=== PATIENT | female | born 1960 | race Caucasian/White ===

== ENCOUNTER 2017-10-30 12:15 | Observation (INO) ==
[2017-10-30] MEDS ORDERED: LORazepam 2 MG/ML VIAL IV ONE ×2 (12:31→15:34)
[2017-10-30] MEDS ORDERED: LACTATED RINGERS 1,000 ML IV ONE (12:39)
[2017-10-30] MEDS ORDERED: THIAMINE 100 MG in 0.9 % SODIUM CHLORIDE 50 ML IV ONE (12:46)
--- NOTE | 2017-10-30 12:46 | Emergency Department Note ---
General Adult HPI - General Chief complaint: Anxiety Stated complaint: Anxiety Time Seen by Provider: 10/30/17 12:31 Source: patient, EMS Mode of arrival: EMS Limitations: no limitations - History of Present Illness HPI Narrative: This patient is an alcoholic who was diagnosed yesterday with a broken ankle and has not been able to drink any alcohol since and now is in the 80s with a lot of shakiness she has had DTs before. We will start some fluid and Ativan. - Related Data Home Medications Medication Instructions Recorded Confirmed Propranolol [Inderal] 1 mg PO BID 06/07/17 10/29/17 buPROPion HCL [Bupropion Xl] 150 mg PO DAILY 10/29/17 10/29/17 Previous Rx's Medication Instructions Recorded levothyroxine 75 mcg capsule 75 mcg PO QDAY #90 cap 08/14/16 lorazepam 1 mg tablet 1 mg PO DAILYP PRN #30 tab 11/16/16 metoprolol succinate ER 25 mg 25 mg PO DAILY #90 tab 01/11/17 tablet,extended release 24 hr pregabalin 200 mg capsule 200 mg PO BID #60 cap 01/24/17 HYDROcodone/APAP 5/325MG [[place] 1 tab PO Q4HP PRN #30 tab 06/08/17 5-325Mg] HYDROcodone/APAP 5/325MG [[place] 1 tab PO Q6HP PRN #20 tab 10/29/17 5-325Mg] LORazepam [Ativan] 1 mg PO Q8HP #10 tab 10/30/17 Allergies Allergy/AdvReac Type Severity Reaction Status Date / Time No Known Drug Allergies Allergy Verified 06/07/17 15:08 Review of Systems All systems ED: reviewed and negative except as stated. Past Medical History - Past Medical History [facility] Narrative: Medical History (Last Reviewed 01/24/17 @ 10:02 by Shlomo Ernst DO) Urosepsis (Acute) Bacteremia due to Escherichia coli (Acute) Medical history: Reports: other Psychiatric history: Reports: anxiety - Social History smoking status: Never smoker Alcohol use: Reports: Heavy, Recent Drug use: Reports: none Physical Exam Limitations: no limitations General appearance: anxious Head: atraumatic Eye: Present: normal appearance ENT: normal exam Neck: Present: normal inspection Chest: Present: normal inspection Respiratory: Present: normal lung sounds bilaterally Cardiovascular: Present: regular rate, normal rhythm, normal heart sounds Abdominal: Present: soft. Absent: distention, tenderness Neurological: Present: alert Psychiatric: Present: normal affect, normal mood Skin: Present: warm, dry, intact Course Vital Signs Pulse Rate 112 H 10/30/17 12:15 Blood Pressure 157/113 10/30/17 12:15 Pulse Oximetry (%) 100 10/30/17 12:15 Pulse Rate 115 H 10/30/17 13:31 Respiratory Rate 18 10/30/17 14:26 Blood Pressure 144/99 10/30/17 14:01 Pulse Oximetry (%) 100 10/30/17 13:31 Medical Decision Making - MDM Narrative Medical decision making narrative: This patient was given 1 mg of Ativan and calmed down and felt much better and felt like she could go home with some oral Ativan. - Lab Data Lab results reviewed: Yes I reviewed the patient's lab results. Result diagrams: 10/30/17 12:32 10/30/17 12:32 Lab Results 10/30/17 10/30/17 Range/Units 12:32 12:32 WBC 7.7 (4.5-11.0) K/mcL RBC 3.77 L (4.00-5.20) M/mcL Hgb 11.8 L (12.0-15.0) g/dL Hct 35.3 L (36.0-48.0) % MCV 93.6 (80.0-100.0) fL MCH 31.3 (26.0-34.0) pg MCHC 33.4 (31.0-36.0) g/dL RDW 13.8 (11.5-14.5) % Plt Count 177 (140-440) K/mcL MPV 8.7 (7.4-10.4) fL Gran % 82.5 H (38.0-78.0) % Lymph % (Auto) 12.2 L (15.5-49.0) % [place] % (Auto) 5.1 (1.0-12.0) % Eos % (Auto) 0 (0.0-7.0) % Baso % (Auto) 0.2 (0.0-2.0) % Gran # 6.4 (1.8-8.0) K/mcL Lymph # (Auto) 0.9 L (1.5-4.8) K/mcL [place] # (Auto) 0.4 (0.1-0.9) K/mcL Eos # (Auto) 0 (0.0-0.7) K/mcL Baso # (Auto) 0 (0.0-0.3) K/mcL Sodium 133 (133-145) mmol/L Potassium 4.0 (3.3-5.1) mmol/L Chloride 92 L (96-108) mmol/L Carbon Dioxide 18 L (22-30) mmol/L Anion Gap 23.0 H (8-16) BUN 6 (6-20) mg/dl Creatinine 0.6 (0.6-1.1) mg/dl GFR Calculation 103 Glucose 187 H (70-105) mg/dL Calcium 9.3 (8.6-10.4) mg/dl Total Bilirubin 1.0 (0.0-1.0) mg/dL AST 30 (0-37) U/l ALT < 5 (0-40) U/l Alkaline Phosphatase 85 (39-117) U/L Total Protein 7.7 (5.9-8.4) gm/dL Albumin 4.3 (3.2-5.2) gm/dL Globulin 3.4 (2.2-3.7) gm/dL Albumin/Globulin Ratio 1.3 (1.0-2.3) Disposition Pt seen by [facility]ER/PA only: No Clinical Impression: Alcohol withdrawal Disposition: Home, Self-Care Condition: Good Instructions: Alcohol Withdrawal (ED) Prescriptions: LORazepam [Ativan] 1 mg PO Q8HP #10 tab Referrals: Steffi Blair PA-C [Primary Care Provider] - Time of Disposition: 14:33
[2017-10-30] MEDS ORDERED: THIAMINE 100 MG/ML VIAL ONE (13:00)
[2017-10-30 13:10] LABS: Basophils # (Auto) 0 K/mcL (0.0-0.3); Basophils % (Auto) 0.2 % (0.0-2.0); Eosinophils # (Auto) 0 K/mcL (0.0-0.7); Eosinophils % (Auto) 0 % (0.0-7.0); Granulocytes % (Auto) 82.5 % (38.0-78.0); Lymphocytes # (Auto) 0.9 K/mcL (1.5-4.8); Lymphocytes % (Auto) 12.2 % (15.5-49.0); Mean Cell Volume 93.6 fL (80.0-100.0); Mean Corpuscular HGB Conc 33.4 g/dL (31.0-36.0); Mean Corpuscular Hemoglobin 31.3 pg (26.0-34.0); Monocytes # (Auto) 0.4 K/mcL (0.1-0.9); Monocytes % (Auto) 5.1 % (1.0-12.0); Platelet Count 177 K/mcL (140-440); RBC 3.77 M/mcL (4.00-5.20); Red Cell Distribution Width 13.8 % (11.5-14.5)
[2017-10-30 13:29] LABS: ALT/SGPT < 5 U/l (0-40); Albumin 4.3 gm/dL (3.2-5.2); Albumin/Globulin Ratio 1.3 (1.0-2.3); Alkaline Phosphatase 85 U/L (39-117); Blood Urea Nitrogen 6 mg/dl (6-20)
[2017-10-30] MEDS ORDERED: 0.9 % SODIUM CHLORIDE 1,000 ML IV ONE ×2 (15:34→17:10)
[2017-10-30] MEDS ORDERED: MAGNESIUM SULFATE 2 GM/50 ML BAG IV PRN (18:42)
[2017-10-30] MEDS ORDERED: POTASSIUM CHLORIDE 20 MEQ PACKET PO PRN (18:42)
[2017-10-30] MEDS ORDERED: ONDANSETRON 4 MG/2 ML VIAL IV PRN (18:42)
[2017-10-30] MEDS: LACTATED RINGERS 1,000 ML IV SCH (19:22)
[2017-10-30] MEDS ORDERED: traZODone HCL 100 MG TABLET PO PRN (19:40)
[2017-10-30] MEDS ORDERED: LORazepam 1 MG TABLET PO PRN (19:40)
--- NOTE | 2017-10-30 19:41 | Internal Med History&Physical ---
Medical - H&P: [facility] Patient information: Note initiated : 10/30/17 at 7:41 pm Service Date, if different from initiated Date: [] Patient: Reba Santiago a 56 y/o F admitted on 10/30/17 for Anxiety. Chief Complaint: [] Chief complaint: alcohol withdrawal History of present illness: Ms. Santiago is a 56 year old F with extensive history of alcoholic neuropathy and active alcoholism recently had a fall sustaining injury to left ankle causing February distal fibular fractures/talar fracture dislocation. Patient was evaluated in the ER and subsequently sent home with outpatient follow-up with orthopedics. However patient was unable to ambulate and could not have [place] alcohol at home and subsequently started experiencing withdrawal symptoms. She was subsequently referred to ER where initial workup was significant for alcohol withdrawal symptoms. Hospitalist service was consulted to facilitate admission for management of diabetes while orthopedics consult will be required for management of left ankle fracture. At the Time of evaluation patient is fairly anxious fidgety. She was able to answer simple questions. She denies fever but endorses to intermittent diarrhea. She denies weight loss bloody stool off chest pain or shortness of breath. She cannot recollect the events pestering fall. Review of systems 10 point review of systems was performed and is negative except as discussed above Medical - H&P: PMH Medical history: 1. History of alcohol dependence. 2. Diabetes mellitus type 2. 3. Hypothyroidism. 4. Neuropathy. 5. Recurrent falls. Social history: Daily smoker Daily alcohol use Receives Caregiver assistance Smoking status: Current every day smoker Drug use: none Alcohol use: heavy Medical - H&P: Meds Home Medications Medication Instructions Recorded Confirmed Type levothyroxine 75 mcg capsule 75 mcg PO QDAY #90 cap 08/14/16 10/30/17 Rx lorazepam 1 mg tablet 1 mg PO DAILYP PRN #30 tab 11/16/16 10/30/17 Rx buPROPion HCL [Bupropion Xl] 150 mg PO DAILY 10/29/17 10/30/17 History Carbidopa/Levodopa [Carbidopa-Levo 1 each PO TID 10/30/17 10/30/17 History 25-100 mg Odt] DULoxetine HCL [Cymbalta] 60 mg PO DAILY 10/30/17 10/30/17 History Estradiol [Estrace] 2 mg PO DAILY 10/30/17 10/30/17 History LORazepam [Ativan] 1 mg PO BIDP PRN 10/30/17 10/30/17 History Pregabalin [Lyrica] 150 mg PO TID 10/30/17 10/30/17 History traZODone HCL [Trazodone HCl] 100 - 300 mg PO HS PRN 10/30/17 10/30/17 History Allergies Allergy/AdvReac Type Severity Reaction Status Date / Time No Known Drug Allergies Allergy Verified 06/07/17 15:08 Medical - H&P: Exam - Constitutional Vitals: Pulse Resp BP Pulse Ox 118 H 27 H 143/114 90 10/30/17 17:31 10/30/17 18:03 10/30/17 17:31 10/30/17 17:31 Exam: Anxious pupils symmetric Oral cavity dry Head normocephalic Neck no lymphadenopathy S1 and S2 regular rhythm tachycardia Diminished breath sounds bases Abdomen soft Lower extremity left ankle immobilizer boot No lymphedema Skin no suspicious lesion Psych alert cooperative but anxious Neuro nonfocal Medical - H&P: Reslt - Labs CBC & Chem 7: 10/31/17 03:50 10/31/17 03:50 Labs: Short CBC 10/30/17 Range/Units 12:32 WBC 7.7 (4.5-11.0) K/mcL Hgb 11.8 L (12.0-15.0) g/dL Hct 35.3 L (36.0-48.0) % Plt Count 177 (140-440) K/mcL BMP 10/30/17 12:32 Sodium 133 Potassium 4.0 Chloride 92 L Carbon Dioxide 18 L BUN 6 Creatinine 0.6 Glucose 187 H Calcium 9.3 Liver Function 10/30/17 Range/Units 12:32 Total Bilirubin 1.0 (0.0-1.0) mg/dL AST 30 (0-37) U/l ALT < 5 (0-40) U/l Alkaline Phosphatase 85 (39-117) U/L Albumin 4.3 (3.2-5.2) gm/dL Medical - H&P: A/P (1) Alcohol withdrawal delirium Current visit: Yes Status: Acute * Acute alcohol withdrawal- start and denies being for psychomotor agitation/ oral alcohol * Left ankle fracture-consult orthopedics * History of Parkinson's continue levodopa carbidopa * Anxiety disorder continue Cymbalta/bupropion/lorazepam * Neuropathy continue Lyrica * Full code * Prophylaxis heparin Plan * Telemetry observation. * Monitor for DTs * Crystalloids thiamine and benzodiazepines to counter psychomotor agitation * Orthopedics consult * pre-existing medical condition management of home meds
[2017-10-30] MEDS ORDERED: CARBIDOPA/LEVODOPA 25/100 TABLET PO SCH (21:00)
[2017-10-30] MEDS ORDERED: SENNOSIDES/DOCUSATE SODIUM 1 TAB TABLET PO SCH (21:00)
[2017-10-30] MEDS: HEPARIN 5,000 UNIT/ML VIAL SQ SCH (21:45)
[2017-10-30] MEDS: chlordiazePOXIDE 25 MG CAPSULE PO PRN (21:46)
[2017-10-30] MEDS: LORazepam 1 MG TABLET PO PRN (21:46)
[2017-10-30] MEDS: ACETAMINOPHEN 325 MG TABLET PO PRN (21:46)
[2017-10-30] MEDS: PREGABALIN 150 MG CAPSULE PO SCH (21:46)
[2017-10-30] MEDS: CARBIDOPA/LEVODOPA 25/100 TABLET PO SCH (21:47)
[2017-10-30] MEDS: 0.9 % SODIUM CHLORIDE 10 ML SYRINGE IV SCH (21:47)
[2017-10-30] MEDS: DOCUSATE SODIUM 100 MG CAPSULE PO SCH (21:47)
[2017-10-31] MEDS: chlordiazePOXIDE 25 MG CAPSULE PO PRN ×2 (03:08→08:28)
[2017-10-31] MEDS: LORazepam 1 MG TABLET PO PRN ×2 (05:13→14:01)
[2017-10-31] MEDS: ACETAMINOPHEN 325 MG TABLET PO PRN (05:13)
[2017-10-31 06:22] LABS: Mean Cell Volume 93.1 fL (80.0-100.0); Mean Corpuscular HGB Conc 33.7 g/dL (31.0-36.0); Mean Corpuscular Hemoglobin 31.4 pg (26.0-34.0); Platelet Count 152 K/mcL (140-440); RBC 3.28 M/mcL (4.00-5.20); Red Cell Distribution Width 14.2 % (11.5-14.5)
[2017-10-31 06:44] LABS: ALT/SGPT < 5 U/l (0-40); Albumin 3.4 gm/dL (3.2-5.2); Albumin/Globulin Ratio 1.3 (1.0-2.3); Alkaline Phosphatase 65 U/L (39-117); Bilirubin,Direct < 0.2 mg/dL (0.0-0.3); Blood Urea Nitrogen 4 mg/dl (6-20); Gamma Glutamyl Transpeptidase 123 U/L (5-36)
[2017-10-31] MEDS: LACTATED RINGERS 1,000 ML IV SCH (06:49)
[2017-10-31] MEDS: 0.9 % SODIUM CHLORIDE 10 ML SYRINGE IV SCH (07:06)
[2017-10-31] MEDS ORDERED: LEVOTHYROXINE 75 MCG TABLET PO SCH (07:30)
[2017-10-31] MEDS: DOCUSATE SODIUM 100 MG CAPSULE PO SCH (08:26)
[2017-10-31] MEDS: HEPARIN 5,000 UNIT/ML VIAL SQ SCH (08:27)
[2017-10-31] MEDS: PREGABALIN 150 MG CAPSULE PO SCH (08:28)
[2017-10-31] MEDS: CARBIDOPA/LEVODOPA 25/100 TABLET PO SCH (08:28)
[2017-10-31] MEDS ORDERED: MULTIVIT,THER IRON,CA,FA & MIN 1 TABLET PO SCH (09:00)
[2017-10-31] MEDS ORDERED: buPROPion 150 MG TAB.XL.24H PO SCH (09:00)
[2017-10-31] MEDS ORDERED: ESTRADIOL 1 MG TABLET PO SCH (09:00)
[2017-10-31] MEDS ORDERED: DULoxetine 30 MG CAPSULE PO SCH (09:00)
[2017-10-31] MEDS ORDERED: THIAMINE 100 MG in 0.9 % SODIUM CHLORIDE 50 ML IV SCH (09:00)
[2017-10-31 11:33] LABS: Lymphocytes % 36 % (15-49); Monocytes % (Manual) 6 % (1-12); Platelet Estimate NORMAL (NORMAL); RBC Morphology NORMAL (NORMAL); Segmented Neutrophils % 58 % (38-78)
--- NOTE | 2017-10-31 14:52 | Consultation ---
DATE OF CONSULTATION: 10/31/2017 CHIEF COMPLAINT: Alcohol withdrawal. HISTORY OF PRESENT ILLNESS: The patient is a 56-year-old female who currently is in the intensive care unit but initially presented to the emergency department with an extensive history of alcohol abuse. She apparently did experience a fall and presented to the emergency department with alcohol withdrawal symptoms. She was admitted by the hospitalist for management of diabetes and management of the left ankle fracture after she sustained a fall. PAST MEDICAL HISTORY: Significant for history of alcohol dependence, type 2 diabetes, hypothyroidism, neuropathy and recurrent falls. SOCIAL HISTORY: She is a daily smoker and uses alcohol daily. Denies any recreational drug use. PHYSICAL EXAMINATION: GENERAL: The patient appears to be resting comfortably. EYES: Pupils are equal, round, reactive to light and accommodation. NECK: There is no lymphadenopathy noted. Neck is supple. CARDIOVASCULAR: The rate is slightly tachycardic but otherwise normal rhythm. There are no murmurs appreciated. RESPIRATORY: There are diffuse wheezes noted bilaterally and diminished breath sounds in bases. ABDOMEN: Soft, nontender to palpation and otherwise benign. MUSCULOSKELETAL: Inspection reveals mild diffuse swelling throughout the ankle without erythema or any skin lesions. There is an amputation noted of the first digit that is chronic. The left lower extremity is neurovascularly intact. She has near full passive and active range of motion of the ankle, and there is no tenderness to palpation over the foot or ankle. PSYCH: She is alert and oriented but is somewhat confused. NEUROLOGIC: Once again, she is alert and oriented x3. No sensory-motor deficits were appreciated. IMAGING: Radiographs and CT reveal a mildly displaced subacute distal fibula fracture with some callus formation and bony lesions of the talus and midfoot consistent with Charcot foot. There is also evidence of syndesmotic injury. There are no other acute abnormalities or fracture seen. ASSESSMENT: 1. Left Charcot foot/ankle. 2. Diabetes mellitus type 2. 3. Alcohol withdrawal with associated delirium tremens. PLAN: After reviewing the radiographs and CT of her left foot, she has a subacute distal fibular fracture and syndesmotic injury. She also has bony lesions of the talus and midfoot consistent with Charcot foot. We will have her remain in a walking boot and nonweightbearing on the left lower extremity with likely serial casting. She will follow up with Dr. Brock within one week for further management of Charcot foot. The patient agrees with this plan and her questions were addressed. [email or web address]:zia Job ID: [id number] Doc ID: [id number] Maryse Mahmood PA-C
--- NOTE | 2017-10-31 15:37 | Discharge Summary ---
Medical - DS: Prov Patient information: Note initiated : 10/31/17 at 3:33 pm Service Date, if different from initiated Date: [] Patient: Reba Santiago 56 y/o F admitted on 10/30/17 for Anxiety/Alcohol Withdrawal Delirium, Lt Ankle Fx. Chief Complaint: [] Date of admission: 10/30/17 18:32 Discharge date: 10/31/17 Primary care physician: Steffi Blair Consults: 10/30/17 16:10 Consult to Physician [CONS] Stat Comment: Consulting Provider: eRuben Molina Reason For Exam: Physician to Consult 10/31/17 10:40 Consult to Physician [CONS] Routine Comment: Consulting Provider: Magen Recinos Reason For Exam: Physician to Consult Medical - DS: Meds - Discharge Medications Active and Home Medications: Home Medications levothyroxine 75 mcg capsule 75 mcg PO QDAY #90 cap 08/14/16 [Rx Confirmed 10/30 Last Taken 03/04/17] lorazepam 1 mg tablet 1 mg PO DAILYP PRN #30 tab 11/16/16 [Rx Confirmed Last Taken 03/04/17] buPROPion HCL [Bupropion Xl] 150 mg PO DAILY 10/29/17 [History Confirmed Last Taken Unknown] Carbidopa/Levodopa [Carbidopa-Levo 25-100 mg Odt] 1 each PO TID 10/30/17 [ History Confirmed 10/30/17 Last Taken Unknown] DULoxetine HCL [Cymbalta] 60 mg PO DAILY 10/30/17 [History Confirmed 10/30/17 Last Taken Unknown] Estradiol [Estrace] 2 mg PO DAILY 10/30/17 [History Confirmed 10/30/17 Last Taken Unknown] LORazepam [Ativan] 1 mg PO BIDP PRN 10/30/17 [History Confirmed 10/30/17 Last Taken Unknown] Pregabalin [Lyrica] 150 mg PO TID 10/30/17 [History Confirmed 10/30/17 Last Taken Unknown] traZODone HCL [Trazodone HCl] 100 - 300 mg PO HS PRN 10/30/17 [History Confirmed 10/30/17 Last Taken Unknown] Medical - DS: Hosp Hospital course: Discharge diagnoses * Acute alcohol withdrawal- clinically improving. Continue oral alcohol. * Left ankle orthopedics consulted and recommended outpatient follow-up. Immobilizer boot and nonweightbearing. * History of Parkinson's disease continue levodopa Carbidopa * Anxiety disorder continue Cymbalta/bupropion/lorazepam * Neuropathy continue Lyrica [facility] hospital course - Ms. Santiago is a 56 year old F with extensive history of alcoholic neuropathy and active alcoholism recently had a fall sustaining injury to left ankle causing February distal fibular fractures/talar fracture dislocation. Patient was evaluated in the ER and subsequently sent home with outpatient follow-up with orthopedics. However patient was unable to ambulate and could not have [place] alcohol at home and subsequently started experiencing withdrawal symptoms. She was subsequently referred to ER where initial workup was significant for alcohol withdrawal symptoms. Hospitalist service was consulted to facilitate admission for management of diabetes while orthopedics consult will be required for management of left ankle fracture. At the Time of evaluation patient is fairly anxious fidgety. She was able to answer simple questions. She denies fever but endorses to intermittent diarrhea. She denies weight loss bloody stool off chest pain or shortness of breath. She cannot recollect the events pestering fall. 10/31-patient back at baseline. Evaluated by orthopedics. Recommends nonweightbearing and immobilizer boot . No further anxiety or clinical symptoms of withdrawal. Discharge home with instructions as below. Discharge diagnosis: . - Time Spent with Patient Total time spent providing and/or coordinating discharge services: Medical - DS: Exam - Constitutional Vitals: Vital Signs Temp Pulse Resp BP Pulse Ox 10/31/17 13:02 98.6 F 88 23 H 151/92 99 10/31/17 09:37 21 10/31/17 08:01 20 136/104 10/31/17 06:55 18 134/100 10/31/17 04:01 99.2 F H 16 148/105 98 10/31/17 02:01 19 136/89 10/31/17 00:01 107 H 23 H 141/95 96 10/30/17 22:44 98 H 20 95 10/30/17 22:01 109 H 15 150/96 93 10/30/17 21:01 109 H 24 H 144/96 96 10/30/17 20:01 101 H 26 H 153/100 96 10/30/17 19:16 98 H 18 146/110 98 10/30/17 19:01 105 H 18 151/99 94 10/30/17 18:46 106 H 18 144/88 98 10/30/17 18:45 100 H 15 150/108 96 10/30/17 18:30 99.0 F 153/111 10/30/17 18:03 27 H 10/30/17 17:31 118 H 19 143/114 90 10/30/17 17:02 16 179/134 10/30/17 16:31 104 H 17 142/128 97 10/30/17 16:01 99 H 19 147/102 95 10/30/17 15:35 103 H 13 160/108 91 Intake and Output 10/31/17 10/31/17 10/31/17 05:59 13:59 21:59 Intake Total 1009 / 1009 Output Total 1600 / 1600 1500 / 1500 Balance -1600 / -1600 1009 / 1009 -1500 / -1500 Intake: IV 859 / 859 Lactated Ringers 1,000 ml @ 75 859 / 859 mls/hr IV .[id number] [facility] Rx#: [id number] Oral 150 / 150 Output: Urine Catheter Amount 1600 / 1600 1500 / 1500 Other: Meal Lunch Percent of Meal Consumed 50% Feeding Ability Assist with [employer] Medical - DS: Data Labs on day of discharge: Labs from last 24 hours 10/31/17 10/31/17 03:50 03:50 WBC 6.1 RBC 3.28 L Hgb 10.3 L Hct 30.5 L MCV 93.1 MCH 31.4 MCHC 33.7 RDW 14.2 Plt Count 152 MPV 8.4 Total Counted 100 Seg Neutrophils % 58 Band Neutrophils % Not Reportable Lymphocytes % 36 Monocytes % (Manual) 6 Platelet Estimate Normal RBC Morphology Normal Sodium 137 Potassium 3.4 Chloride 101 Carbon Dioxide 24 Anion Gap 12.0 BUN 4 L Creatinine 0.5 L GFR Calculation 109 Glucose 74 Uric Acid 4.0 Calcium 8.4 L Phosphorus 2.0 L Magnesium 1.4 L Total Bilirubin 1.0 Direct Bilirubin < 0.2 GGT 123 H AST 22 ALT < 5 Alkaline Phosphatase 65 Lactate Dehydrogenase 206 Total Protein 6.1 Albumin 3.4 Globulin 2.7 Albumin/Globulin Ratio 1.3 Triglycerides 67 Preliminary micro results at discharge 10/30/17 14:50 Stool Culture - Preliminary Stool Medical - DS: A/P - Patient/Caregiver Discharge Instructions Activity: increase activity as tolerated, other (nonweightbearing continue immobilizer boot,) Diet: Regular Diet Additional Instructions: Discharge Instructions: Non weight bearing left ankle. Use your wheel chair to transport or transfer. To avoid constipation while taking any narcotic pain medication, take an over the counter stool softener/laxative. Call your physician for fevers above 100.5 or pain not controlled by medication. Your prescriptions are with your discharge information. Some medications were electronically transmitted to your pharmacy of choice. Refrain from alcohol - Problem Maintenance (1) Alcohol withdrawal delirium Status: Acute - Follow up Plan Follow up with: Alexei Brock MD [Physician] - 11/05/17 1:00 pm Jaclyn Soto [Nurse Practitioner] - 11/07/17 10:15 am Disposition: Home, Self-Care Prognosis: Good Rehab Potential: Fair I certify that the patient requires SNF services: No Overall status at discharge: patient is progressing back to baseline
== END 2017-10-31 17:00 | disposition home or self-care (01) ==
LOC: ED 12:15 → ICU 18:30 → INTOOBSV 18:32 → ICU 18:32
PROVIDERS: ADMIT Internal Medicine; ATTEND Internal Medicine

== ENCOUNTER 2018-06-05 10:48 | Inpatient (IN) ==
[2018-06-05] MEDS ORDERED: LORazepam 2 MG/ML VIAL IV ONE ×3 (10:59→14:42)
[2018-06-05] MEDS ORDERED: LACTATED RINGERS 1,000 ML IV ONE (11:01)
--- NOTE | 2018-06-05 11:50 | Emergency Department Note ---
Anxiety HPI - General Chief Complaint: Anxiety Stated Complaint: Alcohol withdrawal Time Seen by Provider: 06/05/18 11:06 Source: patient Mode of arrival: ambulatory Limitations: no limitations - History of Present Illness HPI Narrative: 57-year-old female in ED via ambulance. EMS stated patient has anxiety attacks often and has been withdrawn from alcohol, even though she continues to drink wine. EMS attempted to have her drink some wine the patient began to dry heave. She had not had any Ativan today which is her normal and so they advised her to take one of her by mouth medications. Patient still requested to come into the ER. Patient states she drank 1 glass of wine yesterday and has not had any today. Patient states she has anxiety often and takes Ativan 2-3 times as needed, which is daily 2-3 times. Patient states she had just given her cats to her caregiver to take care of right before the anxiety attack hit. She believes this is what set off her anxiety this time. MD complaint: anxiety Onset (ago): hour(s) (1) Symptoms: dyspnea, dry mouth Severity: moderate Quality: constant Place: home History of similar episodes: Yes Provoking factors: emotional stress Improves with: medication, rest Worsens with: thinking about event Associated symptoms: Reports: shortness of breath, confusion (does not answer questions approprietly all the time), nausea/vomiting (dry heaving). Denies: chest pain, palpitations, fever/chills, headaches, malaise - Related Data Home Medications: Home Medications Medication Instructions Recorded Confirmed buPROPion HCL [Bupropion Xl] 300 mg PO DAILY 10/29/17 06/05/18 Carbidopa/Levodopa [Carbidopa-Levo 1 each PO TID 10/30/17 06/05/18 25-100 mg Odt] DULoxetine HCL [Cymbalta] 90 mg PO DAILY 10/30/17 06/05/18 Estradiol [Estrace] 2 mg PO DAILY 10/30/17 06/05/18 LORazepam [Ativan] 1 mg PO BIDP PRN 10/30/17 06/05/18 Pregabalin [Lyrica] 150 mg PO TID 10/30/17 06/05/18 traZODone HCL [Trazodone HCl] 100 - 300 mg PO HS PRN 10/30/17 06/05/18 Hydrocodone/APAP 7.5/325Mg [[place] 1 tab PO TIDP PRN 06/05/18 06/05/18 7.5-325Mg] Pregabalin [Lyrica] 150 mg PO TID 06/05/18 06/05/18 Propranolol [Inderal] 10 mg PO TID 06/05/18 06/05/18 Previous Rx's Medication Instructions Recorded levothyroxine 75 mcg capsule 75 mcg PO QDAY #90 cap 08/14/16 Allergies/Adverse Reactions: Allergies Allergy/AdvReac Type Severity Reaction Status Date / Time No Known Drug Allergies Allergy Verified 06/03/18 12:17 Review of Systems All systems ED: reviewed and negative except as stated. Past Medical History - Past Medical History PMFSH Narrative: All Active Problems (Last Reviewed 01/24/17 @ 10:02 by Shlomo Ernst DO) Urosepsis (Acute) Bacteremia due to Escherichia coli (Acute) Anxiety (Acute) Ankle fracture, left (Acute) Alcohol withdrawal (Acute) Alcohol withdrawal delirium (Acute) Hypomagnesemia (Acute) Primary insomnia (Chronic) Hyperthyroidism (Acute) Peripheral neuropathy (Chronic) Generalized anxiety disorder (Chronic) History of diabetes mellitus (Chronic) Medical history: Reports: thyroid disease Psychiatric history: Reports: anxiety - Social History smoking status: Former smoker Alcohol use: Reports: Heavy, Recent Drug use: Reports: none Physical Exam Limitations: no limitations General appearance: alert (with eyes closed), in no apparent distress (is shaking and with rapid respirations but able to lay flat without SOB) Head: atraumatic, normocephalic, normal inspection Eye: Present: normal appearance, PERRL. Absent: conjunctival injection ENT: normal oropharynx, mucous membranes moist, TM's normal bilaterally, normal external ear exam Neck: Present: normal inspection. Absent: tenderness, lymphadenopathy Chest: Present: normal inspection, symmetric chest wall rise. Absent: tenderness Respiratory: Present: normal lung sounds bilaterally. Absent: respiratory distress, rales/crackles, wheezes Cardiovascular: Present: tachycardia. Absent: systolic murmur, diastolic murmur Abdominal: Present: soft, normal bowel sounds. Absent: distention, tenderness, guarding, rebound, rigidity Extremities: Present: normal inspection, full ROM. Absent: pedal edema Neurological: Present: alert, oriented X3, normal gait Psychiatric: Present: anxious Skin: Present: warm, dry, intact, normal color, other (Pt does have abrasion to right forearm erythema and scabbed in the center, no drainage non indurated). Absent: cyanosis, diaphoresis Course Vital Signs Temperature 96.6 F L 06/05/18 10:49 Pulse Rate 117 H 06/05/18 10:49 Respiratory Rate 36 H 06/05/18 10:49 Pulse Oximetry (%) 100 06/05/18 10:49 Temperature 98.0 F 06/06/18 06:01 Pulse Rate 70 06/06/18 06:01 Respiratory Rate 15 06/06/18 06:01 Blood Pressure 109/67 06/06/18 06:01 Pulse Oximetry (%) 93 06/06/18 06:01 Anxiety - MDM Narrative Medical decision making narrative: Provided patient 1 L normal saline and an additional liter banana bag, 1 mg IV Ativan. Chem 8 showed slightly low potassium at 3.2. Banana bag should improve this. Patient also with 67 glucose and provided her food box. Patient ate food and was feeling better. Patient's CIWA was 25. Banana bag takes 4 hours a nd needed to provide patient another milligram of Ativan IV, with no changes pt received a total of 3mg of Ativan IV and then switched to 5mg IM Haldol. This helped calm patient and she is able to communicate again but still has altered mental status, she can answer some questions appropriately such as where she had her she is but unable to tell us if she is taking her medications or if she's been attempting to quit drinking wine. Urine had large ketones no leukocytes or nitrates. Blood work showed 11.6 WBC, Chronic anemia, no alcohol in her blood. Consulted with [facility] who accepted patient into [facility]. - Medical Records Medical records reviewed: Yes I reviewed the patient's medical records. Reviewed last ED note 2 days ago patient was having alcohol withdrawals provided banana bag and Ativan. Patient did have hypomagnesemia. Patient had advised she was not going to quit drinking alcohol and not go to rehabilitation. Patient returned home after medication. - Lab Data Lab results reviewed: Yes I reviewed the patient's lab results. Result diagrams: 06/06/18 03:52 06/06/18 03:52 Lab Results 06/05/18 06/05/18 06/05/18 Range/Units 11:23 16:01 16:01 WBC 11.6 H (4.5-11.0) K/mcL RBC 2.96 L (4.00-5.20) M/mcL Hgb 9.6 L (12.0-15.0) g/dL Hct 29.5 L (36.0-48.0) % POC Hct 30.0 L (36.0-48.0) % MCV 99.6 (80.0-100.0) fL MCH 32.4 (26.0-34.0) pg MCHC 32.5 (31.0-36.0) g/dL RDW 14.6 H (11.5-14.5) % Plt Count 255 (140-440) K/mcL MPV 9.2 (7.4-10.4) fL Gran % 80.8 H (38.0-78.0) % Lymph % (Auto) 9.5 L (15.5-49.0) % [place] % (Auto) 9.5 (1.0-12.0) % Eos % (Auto) 0.1 (0.0-7.0) % Baso % (Auto) 0.1 (0.0-2.0) % Gran # 9.4 H (1.8-8.0) K/mcL Lymph # (Auto) 1.1 L (1.5-4.8) K/mcL [place] # (Auto) 1.1 H (0.1-0.9) K/mcL Eos # (Auto) 0 (0.0-0.7) K/mcL Baso # (Auto) 0 (0.0-0.3) K/mcL POC Sodium 133 (133-145) mmol/L Sodium 132 L (133-145) mmol/L POC Potassium 3.2 L (3.3-5.1) mmol/L Potassium 3.4 (3.3-5.1) mmol/L POC Chloride 98 (96-108) mmol/L Chloride 94 L (96-108) mmol/L Carbon Dioxide 13 L (22-30) mmol/L POC Total CO2 14 L (22-30) mmol/L Anion Gap 25.0 H (8-16) POC BUN 5 L (6-20) mg/dl BUN 7 (6-20) mg/dl Creatinine 0.7 (0.6-1.1) mg/dl POC Creatinine 0.6 (0.6-1.1) mg/dl GFR Calculation 97 Glucose 56 L (70-105) mg/dL POC Glucose 67 L (70-105) mg/dL Calcium 8.9 (8.6-10.4) mg/dl POC WB Ioniz Calcium 1.07 L (1.16-1.32) mmol/L Phosphorus (2.7-4.5) mg/dL Magnesium (1.6-2.5) mg/dL Total Bilirubin 1.0 (0.0-1.0) mg/dL AST 22 (0-37) U/l ALT 7 (0-40) U/l Alkaline Phosphatase 65 (39-117) U/L Total Protein 6.3 (5.9-8.4) gm/dL Albumin 3.7 (3.2-5.2) gm/dL Globulin 2.6 (2.2-3.7) gm/dL Albumin/Globulin Ratio 1.4 (1.0-2.3) Urine Color Urine Appearance Urine pH (5.0-9.0) Ur Specific [place] (1.000-1.035) Urine Protein (NEG) mg/dL Urine Glucose (UA) (NEG) mg/dL Urine Ketones (NEG) mg/dL Urine Occult Blood (<0.03) mg/dL Urine Nitrate (NEG) Urine Bilirubin (NEG) mg/dL Urine Urobilinogen (NEG) mg/dL Ur Leukocyte Esterase (NEG) /uL Urine RBC (0-1) /hpf Urine WBC (0-4) /hpf Ur Squamous Epith Cells (0-4) /hpf Ur Transition Epith Cell (0-2) /hpf Urine Bacteria (0) /hpf Hyaline Casts (0-2) /lpf Urine Mucus (0) /hpf Ur Culture Indicated? Urine Opiates Screen (NONDETECTED) Ur Opiates Confirm Ur Oxycodone Screen (NONDETECTED) Urine Methadone Screen (NONDETECTED) Ur Methadone Confirm Ur Barbiturates Screen (NONDETECTED) Ur Barbiturate Confirm Ur Phencyclidine Scrn (NONDETECTED) Urine PCP Confirm Ur Amphetamines Screen (NONDETECTED) U Amphetamines Confirm U Benzodiazepines Scrn (NONDETECTED) U Benzodiazepine Confm Urine Cocaine Screen (NONDETECTED) Urine Cocaine Confirm U Cannabinoids Confirm U Marijuana (THC) Screen (NONDETECTED) Ethyl Alcohol (<0.010) gm/dl 06/05/18 06/05/18 06/05/18 Range/Units 17:35 17:45 17:45 WBC (4.5-11.0) K/mcL RBC (4.00-5.20) M/mcL Hgb (12.0-15.0) g/dL Hct (36.0-48.0) % POC Hct (36.0-48.0) % MCV (80.0-100.0) fL MCH (26.0-34.0) pg MCHC (31.0-36.0) g/dL RDW (11.5-14.5) % Plt Count (140-440) K/mcL MPV (7.4-10.4) fL Gran % (38.0-78.0) % Lymph % (Auto) (15.5-49.0) % [place] % (Auto) (1.0-12.0) % Eos % (Auto) (0.0-7.0) % Baso % (Auto) (0.0-2.0) % Gran # (1.8-8.0) K/mcL Lymph # (Auto) (1.5-4.8) K/mcL [place] # (Auto) (0.1-0.9) K/mcL Eos # (Auto) (0.0-0.7) K/mcL Baso # (Auto) (0.0-0.3) K/mcL POC Sodium (133-145) mmol/L Sodium (133-145) mmol/L POC Potassium (3.3-5.1) mmol/L Potassium (3.3-5.1) mmol/L POC Chloride (96-108) mmol/L Chloride (96-108) mmol/L Carbon Dioxide (22-30) mmol/L POC Total CO2 (22-30) mmol/L Anion Gap (8-16) POC BUN (6-20) mg/dl BUN (6-20) mg/dl Creatinine (0.6-1.1) mg/dl POC Creatinine (0.6-1.1) mg/dl GFR Calculation Glucose (70-105) mg/dL POC Glucose (70-105) mg/dL Calcium (8.6-10.4) mg/dl POC WB Ioniz Calcium (1.16-1.32) mmol/L Phosphorus (2.7-4.5) mg/dL Magnesium (1.6-2.5) mg/dL Total Bilirubin (0.0-1.0) mg/dL AST (0-37) U/l ALT (0-40) U/l Alkaline Phosphatase (39-117) U/L Total Protein (5.9-8.4) gm/dL Albumin (3.2-5.2) gm/dL Globulin (2.2-3.7) gm/dL Albumin/Globulin Ratio (1.0-2.3) Urine Color Yellow Urine Appearance Hazy Urine pH 6.0 (5.0-9.0) Ur Specific [place] 1.014 (1.000-1.035) Urine Protein Neg (NEG) mg/dL Urine Glucose (UA) Negative (NEG) mg/dL Urine Ketones 80 A (NEG) mg/dL Urine Occult Blood Neg (<0.03) mg/dL Urine Nitrate Neg (NEG) Urine Bilirubin Neg (NEG) mg/dL Urine Urobilinogen 4.0 A (NEG) mg/dL Ur Leukocyte Esterase 75 A (NEG) /uL Urine RBC < 1 (0-1) /hpf Urine WBC 3 (0-4) /hpf Ur Squamous Epith Cells 5 H (0-4) /hpf Ur Transition Epith Cell < 1 (0-2) /hpf Urine Bacteria 0 (0) /hpf Hyaline Casts 3 H (0-2) /lpf Urine Mucus Few (0) /hpf Ur Culture Indicated? No Urine Opiates Screen Suspect positive A (NONDETECTED) Ur Opiates Confirm Not Reportable Ur Oxycodone Screen None detected (NONDETECTED) Urine Methadone Screen None detected (NONDETECTED) Ur Methadone Confirm Not Reportable Ur Barbiturates Screen None detected (NONDETECTED) Ur Barbiturate Confirm Not Reportable Ur Phencyclidine Scrn None detected (NONDETECTED) Urine PCP Confirm Not Reportable Ur Amphetamines Screen None detected (NONDETECTED) U Amphetamines Confirm Not Reportable U Benzodiazepines Scrn None detected (NONDETECTED) U Benzodiazepine Confm Not Reportable Urine Cocaine Screen None detected (NONDETECTED) Urine Cocaine Confirm Not Reportable U Cannabinoids Confirm Not Reportable U Marijuana (THC) Screen Suspect positive A (NONDETECTED) Ethyl Alcohol < 0.010 (<0.010) gm/dl 06/05/18 Range/Units 18:30 WBC (4.5-11.0) K/mcL RBC (4.00-5.20) M/mcL Hgb (12.0-15.0) g/dL Hct (36.0-48.0) % POC Hct (36.0-48.0) % MCV (80.0-100.0) fL MCH (26.0-34.0) pg MCHC (31.0-36.0) g/dL RDW (11.5-14.5) % Plt Count (140-440) K/mcL MPV (7.4-10.4) fL Gran % (38.0-78.0) % Lymph % (Auto) (15.5-49.0) % [place] % (Auto) (1.0-12.0) % Eos % (Auto) (0.0-7.0) % Baso % (Auto) (0.0-2.0) % Gran # (1.8-8.0) K/mcL Lymph # (Auto) (1.5-4.8) K/mcL [place] # (Auto) (0.1-0.9) K/mcL Eos # (Auto) (0.0-0.7) K/mcL Baso # (Auto) (0.0-0.3) K/mcL POC Sodium (133-145) mmol/L Sodium (133-145) mmol/L POC Potassium (3.3-5.1) mmol/L Potassium (3.3-5.1) mmol/L POC Chloride (96-108) mmol/L Chloride (96-108) mmol/L Carbon Dioxide (22-30) mmol/L POC Total CO2 (22-30) mmol/L Anion Gap (8-16) POC BUN (6-20) mg/dl BUN (6-20) mg/dl Creatinine (0.6-1.1) mg/dl POC Creatinine (0.6-1.1) mg/dl GFR Calculation Glucose (70-105) mg/dL POC Glucose (70-105) mg/dL Calcium (8.6-10.4) mg/dl POC WB Ioniz Calcium (1.16-1.32) mmol/L Phosphorus 3.1 (2.7-4.5) mg/dL Magnesium 1.4 L (1.6-2.5) mg/dL Total Bilirubin (0.0-1.0) mg/dL AST (0-37) U/l ALT (0-40) U/l Alkaline Phosphatase (39-117) U/L Total Protein (5.9-8.4) gm/dL Albumin (3.2-5.2) gm/dL Globulin (2.2-3.7) gm/dL Albumin/Globulin Ratio (1.0-2.3) Urine Color Urine Appearance Urine pH (5.0-9.0) Ur Specific [place] (1.000-1.035) Urine Protein (NEG) mg/dL Urine Glucose (UA) (NEG) mg/dL Urine Ketones (NEG) mg/dL Urine Occult Blood (<0.03) mg/dL Urine Nitrate (NEG) Urine Bilirubin (NEG) mg/dL Urine Urobilinogen (NEG) mg/dL Ur Leukocyte Esterase (NEG) /uL Urine RBC (0-1) /hpf Urine WBC (0-4) /hpf Ur Squamous Epith Cells (0-4) /hpf Ur Transition Epith Cell (0-2) /hpf Urine Bacteria (0) /hpf Hyaline Casts (0-2) /lpf Urine Mucus (0) /hpf Ur Culture Indicated? Urine Opiates Screen (NONDETECTED) Ur Opiates Confirm Ur Oxycodone Screen (NONDETECTED) Urine Methadone Screen (NONDETECTED) Ur Methadone Confirm Ur Barbiturates Screen (NONDETECTED) Ur Barbiturate Confirm Ur Phencyclidine Scrn (NONDETECTED) Urine PCP Confirm Ur Amphetamines Screen (NONDETECTED) U Amphetamines Confirm U Benzodiazepines Scrn (NONDETECTED) U Benzodiazepine Confm Urine Cocaine Screen (NONDETECTED) Urine Cocaine Confirm U Cannabinoids Confirm U Marijuana (THC) Screen (NONDETECTED) Ethyl Alcohol (<0.010) gm/dl Disposition Pt seen by CALL CENTER DIRECTOR/PA only: No (Drier Feeder) Clinical Impression: Acute anxiety Disposition: Xfer As Inpt ([facility]) Condition: Fair Time of Disposition: 11:08
[2018-06-05] MEDS ORDERED: POTASSIUM CHLORIDE 20 MEQ, MAGNESIUM SULFATE 16.24 MEQ, THIAMINE 100 MG, MVI, ADULT NO.... IV SCH (12:00)
[2018-06-05] MEDS ORDERED: MAGNESIUM SULFATE 8.12 MEQ/2 ML VIAL ONE (12:07)
[2018-06-05] MEDS ORDERED: HALOPERIDOL LACTATE 5 MG/ML VIAL IM ONE (15:33)
[2018-06-05 16:11] LABS: Basophils # (Auto) 0 K/mcL (0.0-0.3); Basophils % (Auto) 0.1 % (0.0-2.0); Eosinophils # (Auto) 0 K/mcL (0.0-0.7); Eosinophils % (Auto) 0.1 % (0.0-7.0); Granulocytes % (Auto) 80.8 % (38.0-78.0); Lymphocytes # (Auto) 1.1 K/mcL (1.5-4.8); Lymphocytes % (Auto) 9.5 % (15.5-49.0); Mean Cell Volume 99.6 fL (80.0-100.0); Mean Corpuscular HGB Conc 32.5 g/dL (31.0-36.0); Monocytes # (Auto) 1.1 K/mcL (0.1-0.9); Monocytes % (Auto) 9.5 % (1.0-12.0); Platelet Count 255 K/mcL (140-440); RBC 2.96 M/mcL (4.00-5.20); Red Cell Distribution Width 14.6 % (11.5-14.5)
[2018-06-05 16:21] LABS: ALT/SGPT 7 U/l (0-40); Albumin 3.7 gm/dL (3.2-5.2); Albumin/Globulin Ratio 1.4 (1.0-2.3); Alkaline Phosphatase 65 U/L (39-117); Blood Urea Nitrogen 7 mg/dl (6-20)
[2018-06-05] MEDS: DEXTROSE 5%-NS 1,000 ML IV SCH ×2 (17:10→22:51)
[2018-06-05] MEDS ORDERED: THIAMINE 100 MG in 0.9 % SODIUM CHLORIDE 50 ML IV ONE (18:30)
--- NOTE | 2018-06-05 18:40 | XRay Report ---
HISTORY: alcohol withdrawal with altered mental status FINDINGS: The lungs are clear. There is no evidence of pneumonia, mass or pulmonary vascular congestion. The right diaphragm is mildly elevated. This is a chronic stable finding. Heart is normal in size and contour. There is no evidence of adenopathy. Comparison with the prior exam on 10/27/15 shows no change. IMPRESSION: No acute abnormality Interpreted and Authenticated by: Fernie Hamm 06/05/18
--- NOTE | 2018-06-05 19:16 | Internal Med History&Physical ---
Medical - H&P: [facility] Patient information: Note initiated : 06/05/18 at 7:13 pm Service Date, if different from initiated Date: [] Patient: Reba Santiago a 57 y/o F admitted on for Alcohol withdrawal. Chief Complaint: [] History of present illness: Ms. Santiago is a 57 year old F the ED for panic attacks. Not sure how EMS was called if you call them or not but they were called because she is having panic attacks. She was in the ED several days ago for alcohol withdrawal. She feels like she is in the same area. She was discharged to says she has not had any alcohol since then. She says she has a poor food intake, eats mostly fruit little else. States her tremors currently are little worse than usual. This is. She believes she missed her medications today. Is a poor historian, not entirely sure when she had medications last or even exactly how much alcohol she drinks. She was given some 1 by EMS because of the withdrawals but she began to dry heave. She typically takes Ativan 3 times a day did not have any today and was given 1 by EMS. Also Ativan in the ED. In the ED she was tachycardic agitated, she seemed to have altered mental status. She was given Ativan and eventually Haldol and eventually she was calm down and was more able to have a conversation. Workup in the ER showed a ketones in her urine dip chest x-ray unremarkable she was hypoglycemic and had bit of a metabolic acidosis. Sinus tach on EKG. He appeared to be having active withdrawals from alcohol. She denies any hallucinations at this time. Review of Systems: Pertinent positives as above. Chills. Denies headache/fe chitra/chills/nausea/vomiting/chest or abdominal pain/cough/dyspnea/diarrhea. Remaining 10 point review of systems reviewed negative Medical - H&P: [facility] Medical history: Medical History (Last Reviewed 01/24/17 @ 10:02 by Shlomo Ernst DO) Urosepsis (Acute) Bacteremia due to Escherichia coli (Acute) Neuropathy ?Parkinson's Hypothyroidism Alcohol abuse Depression/anxiety Surgical history: Tonsillectomy Family history: States her mother had tremors and her father colon cancer Social history: Patient denies tobacco or history of however prior notes that she is a daily smoker and ER note mentions her former smoker. 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 because she is unable to take care of herself and feed herself She she uses marijuana She is a walker to get around Medical - H&P: Meds Home Medications Medication Instructions Recorded Confirmed Type levothyroxine 75 mcg capsule 75 mcg PO QDAY #90 cap 08/14/16 06/05/18 Rx buPROPion HCL [Bupropion Xl] 300 mg PO DAILY 10/29/17 06/05/18 History Carbidopa/Levodopa [Carbidopa-Levo 1 each PO TID 10/30/17 06/05/18 History 25-100 mg Odt] DULoxetine HCL [Cymbalta] 90 mg PO DAILY 10/30/17 06/05/18 History Estradiol [Estrace] 2 mg PO DAILY 10/30/17 06/05/18 History LORazepam [Ativan] 1 mg PO BIDP PRN 10/30/17 06/05/18 History Pregabalin [Lyrica] 150 mg PO TID 10/30/17 10/30/17 History traZODone HCL [Trazodone HCl] 100 - 300 mg PO HS PRN 10/30/17 06/05/18 History Magnesium Glycinate [Mag Glycinate] 100 mg PO BID #30 tab 06/03/18 Rx Hydrocodone/APAP 7.5/325Mg [[place] 1 tab PO TIDP PRN 06/05/18 06/05/18 History 7.5-325Mg] Pregabalin [Lyrica] 150 mg PO TID 06/05/18 06/05/18 History Propranolol [Inderal] 10 mg PO TID 06/05/18 06/05/18 History Allergies Allergy/AdvReac Type Severity Reaction Status Date / Time No Known Drug Allergies Allergy Verified 06/03/18 12:17 Medical - H&P: Exam - Constitutional Vitals: Temp Pulse Resp BP Pulse Ox 96.6 F L 116 H 17 145/89 96 06/05/18 10:49 06/05/18 17:02 06/05/18 17:02 06/05/18 17:00 06/05/18 17:02 Exam: General: Alert, Awake, restless Eyes/N/T: EOMI, pupils dilated but equal round and reactive to light, DMM Head/Neck: neck supple, normocephalic atraumatic CV: Regular and tachycardic 2/6 SM, normal s1/s2 Pulm: Clear b/l, no wheezing/rhonchi/rales Abd: soft, nontender, +BS x4 Ext: no clubbing/cyanosis/edema Neuro: She is alert and awake but quite restless and tremulous, she does follow commands symmetrical strength bilateral upper lower and sensations intact Skin: warm/dry Medical - H&P: Reslt - Labs CBC & Chem 7: 06/05/18 16:01 06/05/18 16:01 Labs: Short CBC 06/05/18 Range/Units 16:01 WBC 11.6 H (4.5-11.0) K/mcL Hgb 9.6 L (12.0-15.0) g/dL Hct 29.5 L (36.0-48.0) % Plt Count 255 (140-440) K/mcL BMP 06/05/18 16:01 Sodium 132 L Potassium 3.4 Chloride 94 L Carbon Dioxide 13 L BUN 7 Creatinine 0.7 Glucose 56 L Calcium 8.9 Liver Function 06/05/18 Range/Units 16:01 Total Bilirubin 1.0 (0.0-1.0) mg/dL AST 22 (0-37) U/l ALT 7 (0-40) U/l Alkaline Phosphatase 65 (39-117) U/L Albumin 3.7 (3.2-5.2) gm/dL - Impressions Urine dip with ketones Chest x-ray unremarkable Medical - H&P: A/P - Narrative A/P Narrative: A: *Alcohol withdrawal (etoh abuse): *Hypoglycemia: Secondary to above *Hyponatremia: Secondary to above including poor dietary intake *Anion gap metabolic acidosis: Secondary to likely ketoacidosis from alcohol intoxication and likely starvation ketosis component *Tremors/Parkinson's: *Depression/anxiety: *Neuropathy: *Hypothyroidism: *Microcytic anemia: Secondary to above * P: -IVF's -CIWA/vitamins/benzo's -Frequent Accu-Cheks -Check B12/folate -Electrolyte replacement -Continue home psych meds -Check TSH -PCP records - - - -ppx: lovenox/pepcid
[2018-06-05 19:25] LABS: Appearance,Urine HAZY; Bacteria,Urine 0 /hpf (0); Bilirubin,Urine NEG (NEG); Color,Urine YELLOW; Glucose,Urine (UA) NEGATIVE (NEG); Leukocyte Esterase,Urine 75 /uL (NEG); Mucus,Urine FEW /hpf (0); Protein,Urine NEG (NEG); Specific Gravity,Urine 1.014 (1.000-1.035); Urine Blood NEG mg/dL (<0.03); Urine Hyaline Cast 3 /lpf (0-2); Urine RBC < 1 /hpf (0-1); Urine Squamous Epithelial Cell 5 /hpf (0-4); Urine Transitional Epi Cells < 1 /hpf (0-2); Urine WBC 3 /hpf (0-4)
[2018-06-05 19:32] LABS: Amphetamine Screen,Urine NONE DETECTED (NONDETECTED); Benzodiazepines Screen,Urine NONE DETECTED (NONDETECTED); Cocaine Screen,Urine NONE DETECTED (NONDETECTED); Opiate Screen,Urine SUSPECT POSITIVE (NONDETECTED); Oxycodone, Urine Screen NONE DETECTED (NONDETECTED)
[2018-06-05] MEDS ORDERED: HALOPERIDOL LACTATE 5 MG/ML VIAL IM PRN (20:12)
[2018-06-05] MEDS ORDERED: PROMETHAZINE 25 MG/ML VIAL IV PRN (20:12)
[2018-06-05] MEDS ORDERED: cloNIDine HCL 0.1 MG TABLET PO PRN (20:12)
[2018-06-05] MEDS ORDERED: ONDANSETRON 4 MG/2 ML VIAL IV PRN (20:12)
[2018-06-05] MEDS ORDERED: SENNOSIDES 1 TABLET PO PRN (20:12)
[2018-06-05] MEDS ORDERED: LORazepam 2 MG/ML VIAL IV PRN (20:12)
[2018-06-05] MEDS ORDERED: ACETAMINOPHEN 325 MG TABLET PO PRN (20:12)
[2018-06-05] MEDS: LACTATED RINGERS 1,000 ML IV SCH (20:40)
[2018-06-05 21:33] LABS: Folate 10.3 ng/mL (4.2-19.9); Vitamin B12 1595 pg/ml (232-1245)
[2018-06-05] MEDS: chlordiazePOXIDE 25 MG CAPSULE PO PRN (21:42)
[2018-06-05] MEDS: FAMOTIDINE/PF 20 MG/2 ML VIAL IV SCH (21:42)
[2018-06-05] MEDS: PROPRANOLOL 10 MG TABLET PO SCH (21:42)
[2018-06-05] MEDS: DOCUSATE SODIUM 100 MG CAPSULE PO SCH (21:42)
[2018-06-05] MEDS: CARBIDOPA/LEVODOPA 25/100 TABLET PO SCH (21:42)
[2018-06-05] MEDS: PREGABALIN 150 MG CAPSULE PO SCH (21:42)
[2018-06-05] MEDS: 0.9 % SODIUM CHLORIDE 10 ML SYRINGE IV SCH (21:43)
[2018-06-05] MEDS ORDERED: MAGNESIUM SULFATE 2 GM/50 ML BAG IV ONE (22:04)
[2018-06-06 05:51] LABS: Basophils # (Auto) 0 K/mcL (0.0-0.3); Basophils % (Auto) 0.4 % (0.0-2.0); Eosinophils # (Auto) 0 K/mcL (0.0-0.7); Eosinophils % (Auto) 0.3 % (0.0-7.0); Granulocytes % (Auto) 63.3 % (38.0-78.0); Lymphocytes # (Auto) 1.7 K/mcL (1.5-4.8); Lymphocytes % (Auto) 27.9 % (15.5-49.0); Mean Cell Volume 100.1 fL (80.0-100.0); Mean Corpuscular HGB Conc 32.8 g/dL (31.0-36.0); Monocytes # (Auto) 0.5 K/mcL (0.1-0.9); Monocytes % (Auto) 8.1 % (1.0-12.0); Platelet Count 224 K/mcL (140-440); RBC 2.51 M/mcL (4.00-5.20); Red Cell Distribution Width 14.8 % (11.5-14.5)
[2018-06-06] MEDS: 0.9 % SODIUM CHLORIDE 10 ML SYRINGE IV SCH ×3 (05:55→20:22)
[2018-06-06 06:15] LABS: ALT/SGPT < 5 U/l (0-40); Albumin 2.9 gm/dL (3.2-5.2); Albumin/Globulin Ratio 1.3 (1.0-2.3); Alkaline Phosphatase 51 U/L (39-117); Bilirubin,Direct < 0.2 mg/dL (0.0-0.3); Blood Urea Nitrogen 3 mg/dl (6-20); Gamma Glutamyl Transpeptidase 110 U/L (5-36); Uric Acid 4.1 mg/dL (2.5-8.0)
[2018-06-06] MEDS ORDERED: POTASSIUM CHLORIDE 20 MEQ TABLET PO ONE (07:16)
--- NOTE | 2018-06-06 07:18 | Internal Med Progress Note ---
Medical - PN: Subj Patient information: Note initiated : 06/06/18 at 7:13 am Service Date, if different from initiated Date: [] Patient: Reba Santiago a 57 y/o F admitted on 06/05/18 for Alcohol withdrawal. Chief Complaint: [] Interval history: Ms. Santiago is a 57 year old F the ED for panic attacks. Not sure how EMS was called if you call them or not but they were called because she is having panic attacks. She was in the ED several days ago for alcohol withdrawal. She feels like she is in the same area. She was discharged to says she has not had any alcohol since then. She says she has a poor food intake, eats mostly fruit little else. States her tremors currently are little worse than usual. This is. She believes she missed her medications today. Is a poor historian, not entirely sure when she had medications last or even exactly how much alcohol she drinks. She was given some 1 by EMS because of the withdrawals but she began to dry heave. She typically takes Ativan 3 times a day did not have any today and was given 1 by EMS. Also Ativan in the ED. In the ED she was tachycardic agitated, she seemed to have altered mental status. She was given Ativan and eventually Haldol and eventually she was calm down and was more able to have a conversation. Workup in the ER showed a ketones in her urine dip chest x-ray unremarkable she was hypoglycemic and had bit of a metabolic acidosis. Sinus tach on EKG. He appeared to be having active withdrawals from alcohol. She denies any hallucinations at this time. 06/06 Feeling a lot better. CIWA scores requiring treatment. Slept well. No o vernight events. Review of Systems: denies headache/fever/chills/nausea/vomiting/chest or abdominal pain/cough/dyspnea/diarrhea. Otherwise see above. - Constitutional Vitals: Vital Signs Temp Pulse Resp BP Pulse Ox 98.0 F 70 15 109/67 93 06/06/18 06:01 06/06/18 06:01 06/06/18 06:01 06/06/18 06:01 06/06/18 06:01 Period Temp Pulse Resp BP Sys/[place] Pulse Ox Last 24 Hr 96.6 F-98.9 F 70-122 12-36 95-217/54-193 93-100 Intake and Output 06/05/18 06/06/18 06/06/18 21:59 05:59 13:59 Intake Total 1000 1725 Output Total 1360 Balance 1000 365 Weight 47.718 kg Intake & Output: Intake & Output 06/05/18 06/06/18 06/06/18 21:59 05:59 13:59 Intake Total 1000 1725 Output Total 1360 Balance 1000 365 Weight 47.718 kg Intake: IV 1000 1725 Lactated Ringers 1,000 ml @ 1000 Wide Open IV BOLUS ONE Rx#: [id number] Output: Urine Catheter Amount 1360 Other: Urine Appearance Clear Uretheral ([place]) Cloudy Clear Urine Color Pale Uretheral ([place]) Light Valarie Pale Light Valarie Urine Odor Strong Exam: General: Alert, Awake, no acute distress s Eyes/N/T: EOMI, Head/Neck: neck supple, CV: Regular and tachycardic 2/6 SM, Pulm: Clear b/l, no wheezing/rhonchi/rales Abd: soft, nontender, +BS x4 Ext: no clubbing/cyanosis/edema Neuro: Awake alert following commands answering questions quickly and appropriately. Moves all extremities Skin: warm/dry Medical - PN: Obj Da - Labs CBC & Chem 7: 06/06/18 03:52 06/06/18 03:52 Labs: Abnormal Lab Results 06/06/18 06/06/18 06/05/18 03:52 03:52 20:30 WBC RBC 2.51 L Hgb 8.2 L Hct 25.2 L POC Hct MCV 100.1 H RDW 14.8 H Gran % Lymph % (Auto) Gran # Lymph # (Auto) [place] # (Auto) Sodium POC Potassium Potassium 3.2 L Chloride Carbon Dioxide POC Total CO2 Anion Gap POC BUN BUN 3 L Creatinine 0.4 L Glucose POC Glucose Calcium 8.1 L POC WB Ioniz Calcium Magnesium GGT 110 H Total Protein 5.1 L Albumin 2.9 L Vitamin B12 1595 H TSH 8.13 H Urine Ketones Urine Urobilinogen Ur Leukocyte Esterase Ur Squamous Epith Cells Hyaline Casts Urine Opiates Screen U Marijuana (THC) Screen 06/05/18 06/05/18 06/05/18 18:30 17:45 17:35 WBC RBC Hgb Hct POC Hct MCV RDW Gran % Lymph % (Auto) Gran # Lymph # (Auto) [place] # (Auto) Sodium POC Potassium Potassium Chloride Carbon Dioxide POC Total CO2 Anion Gap POC BUN BUN Creatinine Glucose POC Glucose Calcium POC WB Ioniz Calcium Magnesium 1.4 L GGT Total Protein Albumin Vitamin B12 TSH Urine Ketones 80 A Urine Urobilinogen 4.0 A Ur Leukocyte Esterase 75 A Ur Squamous Epith Cells 5 H Hyaline Casts 3 H Urine Opiates Screen Suspect positive A U Marijuana (THC) Screen Suspect positive A 06/05/18 06/05/18 06/05/18 16:01 16:01 11:23 WBC 11.6 H RBC 2.96 L Hgb 9.6 L Hct 29.5 L POC Hct 30.0 L MCV RDW 14.6 H Gran % 80.8 H Lymph % (Auto) 9.5 L Gran # 9.4 H Lymph # (Auto) 1.1 L [place] # (Auto) 1.1 H Sodium 132 L POC Potassium 3.2 L Potassium Chloride 94 L Carbon Dioxide 13 L POC Total CO2 14 L Anion Gap 25.0 H POC BUN 5 L BUN Creatinine Glucose 56 L POC Glucose 67 L Calcium POC WB Ioniz Calcium 1.07 L Magnesium GGT Total Protein Albumin Vitamin B12 TSH Urine Ketones Urine Urobilinogen Ur Leukocyte Esterase Ur Squamous Epith Cells Hyaline Casts Urine Opiates Screen U Marijuana (THC) Screen Meds: Medications Acetaminophen (Tylenol) 650 mg PO Q4-6HP PRN PRN Reason: PAIN/FEVER > 101 Bupropion HCl (Wellbutrin Xl) 300 mg PO DAILY [facility] Carbidopa/Levodopa (Sinemet 25/100) 1 tab PO TID [facility] Last Admin: 06/05/18 21:42 Dose: 1 tab Documented by: Chlordiazepoxide HCl (Librium) 50 mg PO Q6HP PRN PRN Reason: Alcohol Withdrawal Last Admin: 06/05/18 21:42 Dose: 50 mg Documented by: Clonidine HCl (Catapres) 0.1 mg PO Q4HP PRN PRN Reason: Alcohol Withdrawal Last Admin: 06/05/18 21:42 Dose: 0.1 mg Documented by: Docusate Sodium (Colace) 100 mg PO BID [facility] Last Admin: 06/05/18 21:42 Dose: 100 mg Documented by: Duloxetine HCl (Cymbalta) 90 mg PO DAILY [facility] Enoxaparin Sodium (Lovenox) 40 mg SQ DAILY [facility] Famotidine (Pepcid) 20 mg IV Q12 [facility] Last Admin: 06/05/18 21:42 Dose: 20 mg Documented by: Folic Acid (Folic Acid) 1 mg PO DAILY [facility] Haloperidol Lactate (Haldol) 0.5 mg IM Q2HP PRN PRN Reason: Alcohol Withdrawal Lactated Ringer's (Lactated Ringers) 1,000 mls @ 75 mls/hr IV .[id number] [facility] Stop: 06/06/18 22:51 Last Admin: 06/05/18 20:40 Dose: 75 mls/hr Documented by: Thiamine HCl 100 mg/ Sodium (Chloride) 51 mls @ 50 mls/hr IV DAILY [facility] Iron Carb/Multivit/Signalman/Folic Acid (Multivitamin W/Minerals) 1 tab PO DAILY [facility] Levothyroxine Sodium (Synthroid) 75 mcg PO QAMAC [facility] Lorazepam (Ativan) 0 mg IV Q4HP PRN; Protocol PRN Reason: Alcohol Withdrawal Lorazepam (Ativan) 1 mg PO BIDP PRN PRN Reason: Anxiety Ondansetron HCl (Zofran) 4 mg IV Q4-6HP PRN PRN Reason: Nausea And Vomiting Pregabalin (Lyrica) 150 mg PO TID [facility] Last Admin: 06/05/18 21:42 Dose: 150 mg Documented by: Promethazine HCl (Phenergan) 12.5 mg IV Q4-6HP PRN PRN Reason: Nausea And Vomiting Propranolol HCl (Inderal) 10 mg PO TID [facility] Last Admin: 06/05/18 21:42 Dose: 10 mg Documented by: Senna (Senokot) 1 tab PO HSP PRN PRN Reason: Constipation Sodium Chloride (Saline Flush) 10 ml IV Q8 [facility] Last Admin: 06/06/18 05:55 Dose: 10 ml Documented by: Medical - PN: A/P - Time Spent With Patient Total time spent is greater than 50% in coordination of care (as documented) at patient's floor/unit and/or counseling patient: - Narrative A/P Narrative: A: *Alcohol withdrawal (etoh abuse 4+ drinks/day): *Hypoglycemia: Secondary to above, resolved *Hyponatremia/kalemia/mag: Secondary to above including poor dietary intake. Improved *Anion gap metabolic acidosis: Secondary to likely ketoacidosis from alcohol intoxication and likely starvation ketosis component. REsolved *Parkinson's: *Depression/anxiety: *Chronic Pain LBP & Neuropathy: *Hypothyroidism: *Macrocytic anemia, chronic: Secondary to above, b12/folate ok, dilutional acute component *hypothyroidism: P: -IVF's d/c today -CIWA/vitamins/benzo's -Electrolyte replacement -Continue home psych meds -continue levothyroxine, may need increase in dose, f/u PCP -pt/ot -ppx: lovenox/pepcid
--- NOTE | 2018-06-06 07:26 | Emergency Department Note ---
ED Note Addendum Note Addendum: I discussed this case with the mid-level provider and agree with the assessment and plan.
[2018-06-06] MEDS: LEVOTHYROXINE 75 MCG TABLET PO SCH (08:09)
[2018-06-06] MEDS: LACTATED RINGERS 1,000 ML IV SCH (09:40)
[2018-06-06] MEDS: buPROPion 150 MG TAB.XL.24H PO SCH (09:58)
[2018-06-06] MEDS: FOLIC ACID 1 MG TABLET PO SCH (09:59)
[2018-06-06] MEDS: ENOXAPARIN 40 MG/0.4 ML SYRINGE SQ SCH (09:59)
[2018-06-06] MEDS: CARBIDOPA/LEVODOPA 25/100 TABLET PO SCH ×3 (09:59→20:18)
[2018-06-06] MEDS: DULoxetine 30 MG CAPSULE PO SCH (09:59)
[2018-06-06] MEDS: PREGABALIN 150 MG CAPSULE PO SCH ×3 (09:59→20:22)
[2018-06-06] MEDS: MULTIVIT,THER IRON,CA,FA & MIN 1 TABLET PO SCH (09:59)
[2018-06-06] MEDS: DOCUSATE SODIUM 100 MG CAPSULE PO SCH ×2 (09:59→20:18)
[2018-06-06] MEDS: PROPRANOLOL 10 MG TABLET PO SCH ×4 (09:59→20:18)
[2018-06-06] MEDS: FAMOTIDINE/PF 20 MG/2 ML VIAL IV SCH ×2 (10:02→20:18)
[2018-06-06] MEDS: THIAMINE 100 MG in 0.9 % SODIUM CHLORIDE 50 ML IV SCH (12:02)
--- NOTE | 2018-06-06 16:18 | General Surgery Consult Note ---
History of Present Illness Patient information: Note initiated : 06/06/18 at 4:14 pm Service Date, if different from initiated Date: [] Patient: Reba Santiago 57 y/o F admitted on 06/05/18 for Alcohol withdrawal. Chief Complaint: [] Consult date: 06/06/18 Requesting physician: Masoud Martinez (Wound care Ulcer Left medial ankle ) History of present illness: I saw this patient along with Kindra SHERIFF, In Patient Wound Care Nurse. Patient was admitted to ICU via ER for management of alcohol withdrawal and other medical problems. She is currently recovering from foot surgery for ORIF of toes by Dr. Brock, Orthopedic Surgeon. She was noted to have an epidermal pressure ulcer over the medial malleolus of left foot. Medications and Allergies Home Medications Medication Instructions Recorded Confirmed Type levothyroxine 75 mcg capsule 75 mcg PO QDAY #90 cap 08/14/16 06/05/18 Rx buPROPion HCL [Bupropion Xl] 300 mg PO DAILY 10/29/17 06/05/18 History Carbidopa/Levodopa [Carbidopa-Levo 1 each PO TID 10/30/17 06/05/18 History 25-100 mg Odt] DULoxetine HCL [Cymbalta] 90 mg PO DAILY 10/30/17 06/05/18 History Estradiol [Estrace] 2 mg PO DAILY 10/30/17 06/05/18 History LORazepam [Ativan] 1 mg PO BIDP PRN 10/30/17 06/05/18 History Pregabalin [Lyrica] 150 mg PO TID 10/30/17 06/05/18 History traZODone HCL [Trazodone HCl] 100 - 300 mg PO HS PRN 10/30/17 06/05/18 History Hydrocodone/APAP 7.5/325Mg [[place] 1 tab PO TIDP PRN 06/05/18 06/05/18 History 7.5-325Mg] Pregabalin [Lyrica] 150 mg PO TID 06/05/18 06/05/18 History Propranolol [Inderal] 10 mg PO TID 06/05/18 06/05/18 History Allergies Allergy/AdvReac Type Severity Reaction Status Date / Time No Known Drug Allergies Allergy Verified 06/03/18 12:17 Exam Temp Pulse Resp BP Pulse Ox 97.6 F 62 15 89/59 98 06/06/18 15:01 06/06/18 14:01 06/06/18 15:01 06/06/18 15:01 06/06/18 14:01 - General physical appearance no distress, other (Moderately nourished. ) - Eyes PERRL, normal ocular movement - ENT normal pinna, normal nares, no congestion - Head Head exam IM: Present: atraumatic, normal inspection, normocephalic - Neck no masses, no bruits, no venous distension - Cardiovascular Cardiovascular exam IM: Present: normal rate and rhythm - Respiratory normal expansion, normal respiratory effort, clear to auscultation - Abdomen Abdomen: Present: soft, non tender, bowel sounds - Integumentary Present: other (Post surgical changes Left foot toes and dorsal foot. EPIDERMAL pressure ulcer over the right medial malleolus. Pedal pulses palpated. ) - Neurologic Present: normal coordination, other ([place]. No focal neurological deficits. ) - Musculoskeletal Present: other (Patient examined in sitting position. Resolving post surgicacl changes LEFT foot and toes. 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 ) - Psychiatric Present: oriented to time, oriented to person, oriented to place, speech is normal (Back to base line . Sober. ) Results - Labs 06/06/18 03:52 06/06/18 03:52 Abnormal lab results 06/05/18 06/05/18 06/05/18 Range/Units 16:01 17:35 17:45 RBC (4.00-5.20) M/mcL Hgb (12.0-15.0) g/dL Hct (36.0-48.0) % MCV (80.0-100.0) fL RDW (11.5-14.5) % Sodium 132 L (133-145) mmol/L Potassium (3.3-5.1) mmol/L Chloride 94 L (96-108) mmol/L Carbon Dioxide 13 L (22-30) mmol/L Anion Gap 25.0 H (8-16) BUN (6-20) mg/dl Creatinine (0.6-1.1) mg/dl Glucose 56 L (70-105) mg/dL Calcium (8.6-10.4) mg/dl Magnesium (1.6-2.5) mg/dL GGT (5-36) U/L Total Protein (5.9-8.4) gm/dL Albumin (3.2-5.2) gm/dL Vitamin B12 (232-1245) pg/ml TSH (0.27-5.01) uIU/ml Urine Ketones 80 A (NEG) mg/dL Urine Urobilinogen 4.0 A (NEG) mg/dL Ur Leukocyte Esterase 75 A (NEG) /uL Ur Squamous Epith Cells 5 H (0-4) /hpf Hyaline Casts 3 H (0-2) /lpf Urine Opiates Screen Suspect positive A (NONDETECTED) U Marijuana (THC) Screen Suspect positive A (NONDETECTED) 06/05/18 06/05/18 06/06/18 Range/Units 18:30 20:30 03:52 RBC 2.51 L (4.00-5.20) M/mcL Hgb 8.2 L (12.0-15.0) g/dL Hct 25.2 L (36.0-48.0) % MCV 100.1 H (80.0-100.0) fL RDW 14.8 H (11.5-14.5) % Sodium (133-145) mmol/L Potassium (3.3-5.1) mmol/L Chloride (96-108) mmol/L Carbon Dioxide (22-30) mmol/L Anion Gap (8-16) BUN (6-20) mg/dl Creatinine (0.6-1.1) mg/dl Glucose (70-105) mg/dL Calcium (8.6-10.4) mg/dl Magnesium 1.4 L (1.6-2.5) mg/dL GGT (5-36) U/L Total Protein (5.9-8.4) gm/dL Albumin (3.2-5.2) gm/dL Vitamin B12 1595 H (232-1245) pg/ml TSH 8.13 H (0.27-5.01) uIU/ml Urine Ketones (NEG) mg/dL Urine Urobilinogen (NEG) mg/dL Ur Leukocyte Esterase (NEG) /uL Ur Squamous Epith Cells (0-4) /hpf Hyaline Casts (0-2) /lpf Urine Opiates Screen (NONDETECTED) U Marijuana (THC) Screen (NONDETECTED) 06/06/18 Range/Units 03:52 RBC (4.00-5.20) M/mcL Hgb (12.0-15.0) g/dL Hct (36.0-48.0) % MCV (80.0-100.0) fL RDW (11.5-14.5) % Sodium (133-145) mmol/L Potassium 3.2 L (3.3-5.1) mmol/L Chloride (96-108) mmol/L Carbon Dioxide (22-30) mmol/L Anion Gap (8-16) BUN 3 L (6-20) mg/dl Creatinine 0.4 L (0.6-1.1) mg/dl Glucose (70-105) mg/dL Calcium 8.1 L (8.6-10.4) mg/dl Magnesium (1.6-2.5) mg/dL GGT 110 H (5-36) U/L Total Protein 5.1 L (5.9-8.4) gm/dL Albumin 2.9 L (3.2-5.2) gm/dL Vitamin B12 (232-1245) pg/ml TSH (0.27-5.01) uIU/ml Urine Ketones (NEG) mg/dL Urine Urobilinogen (NEG) mg/dL Ur Leukocyte Esterase (NEG) /uL Ur Squamous Epith Cells (0-4) /hpf Hyaline Casts (0-2) /lpf Urine Opiates Screen (NONDETECTED) U Marijuana (THC) Screen (NONDETECTED) Diabetes panel 06/05/18 06/06/18 Range/Units 16:01 03:52 Sodium 132 L 138 (133-145) mmol/L Potassium 3.4 3.2 L (3.3-5.1) mmol/L Chloride 94 L 107 (96-108) mmol/L Carbon Dioxide 13 L 23 (22-30) mmol/L BUN 7 3 L (6-20) mg/dl Creatinine 0.7 0.4 L (0.6-1.1) mg/dl Glucose 56 L 90 (70-105) mg/dL Calcium 8.9 8.1 L (8.6-10.4) mg/dl AST 22 12 (0-37) U/l ALT 7 < 5 (0-40) U/l Alkaline Phosphatase 65 51 (39-117) U/L Total Protein 6.3 5.1 L (5.9-8.4) gm/dL Albumin 3.7 2.9 L (3.2-5.2) gm/dL Triglycerides 51 (<150) mg/dl Thyroid panel 06/05/18 Range/Units 20:30 TSH 8.13 H (0.27-5.01) uIU/ml Calcium panel 06/05/18 06/05/18 06/06/18 Range/Units 16:01 18:30 03:52 Calcium 8.9 8.1 L (8.6-10.4) mg/dl Phosphorus 3.1 3.4 (2.7-4.5) mg/dL Albumin 3.7 2.9 L (3.2-5.2) gm/dL Pituitary panel 06/05/18 06/05/18 06/06/18 Range/Units 16:01 20:30 03:52 Sodium 132 L 138 (133-145) mmol/L Potassium 3.4 3.2 L (3.3-5.1) mmol/L Chloride 94 L 107 (96-108) mmol/L Carbon Dioxide 13 L 23 (22-30) mmol/L BUN 7 3 L (6-20) mg/dl Creatinine 0.7 0.4 L (0.6-1.1) mg/dl Glucose 56 L 90 (70-105) mg/dL Calcium 8.9 8.1 L (8.6-10.4) mg/dl TSH 8.13 H (0.27-5.01) uIU/ml Adrenal panel 06/05/18 06/06/18 Range/Units 16:01 03:52 Sodium 132 L 138 (133-145) mmol/L Potassium 3.4 3.2 L (3.3-5.1) mmol/L Chloride 94 L 107 (96-108) mmol/L Carbon Dioxide 13 L 23 (22-30) mmol/L BUN 7 3 L (6-20) mg/dl Creatinine 0.7 0.4 L (0.6-1.1) mg/dl Glucose 56 L 90 (70-105) mg/dL Calcium 8.9 8.1 L (8.6-10.4) mg/dl Total Bilirubin 1.0 0.5 (0.0-1.0) mg/dL AST 22 12 (0-37) U/l ALT 7 < 5 (0-40) U/l Alkaline Phosphatase 65 51 (39-117) U/L Total Protein 6.3 5.1 L (5.9-8.4) gm/dL Albumin 3.7 2.9 L (3.2-5.2) gm/dL All other labs normal. Assessment and Plan (1) Skin ulcer of left ankle, limited to breakdown of skin Status: Chronic Priority: Medium Comment: See wound care orders. Conservative treatment recommended. F/U at wound center after discharge.
[2018-06-06] MEDS: chlordiazePOXIDE 25 MG CAPSULE PO PRN (20:18)
[2018-06-06] MEDS: LORazepam 1 MG TABLET PO PRN (20:18)
[2018-06-07 05:44] LABS: Basophils # (Auto) 0 K/mcL (0.0-0.3); Basophils % (Auto) 0.5 % (0.0-2.0); Eosinophils # (Auto) 0 K/mcL (0.0-0.7); Eosinophils % (Auto) 0.1 % (0.0-7.0); Granulocytes % (Auto) 60.5 % (38.0-78.0); Lymphocytes # (Auto) 2.1 K/mcL (1.5-4.8); Lymphocytes % (Auto) 30.4 % (15.5-49.0); Mean Cell Volume 101.2 fL (80.0-100.0); Mean Corpuscular HGB Conc 31.7 g/dL (31.0-36.0); Monocytes # (Auto) 0.6 K/mcL (0.1-0.9); Monocytes % (Auto) 8.5 % (1.0-12.0); Platelet Count 239 K/mcL (140-440); RBC 2.69 M/mcL (4.00-5.20); Red Cell Distribution Width 14.9 % (11.5-14.5)
[2018-06-07 06:17] LABS: ALT/SGPT < 5 U/l (0-40); Albumin 2.7 gm/dL (3.2-5.2); Albumin/Globulin Ratio 1.2 (1.0-2.3); Alkaline Phosphatase 54 U/L (39-117); Bilirubin,Direct < 0.2 mg/dL (0.0-0.3); Blood Urea Nitrogen 5 mg/dl (6-20); Gamma Glutamyl Transpeptidase 113 U/L (5-36); Uric Acid 3.9 mg/dL (2.5-8.0)
[2018-06-07] MEDS: 0.9 % SODIUM CHLORIDE 10 ML SYRINGE IV SCH ×3 (07:05→22:51)
[2018-06-07] MEDS: LEVOTHYROXINE 75 MCG TABLET PO SCH (07:25)
--- NOTE | 2018-06-07 07:51 | Internal Med Progress Note ---
Medical - PN: Subj Patient information: Note initiated : 06/07/18 at 7:48 am Service Date, if different from initiated Date: [] Patient: Reba Santiago a 57 y/o F admitted on 06/05/18 for Alcohol withdrawal. Chief Complaint: [] Interval history: Ms. Santiago is a 57 year old F the ED for panic attacks. Not sure how EMS was called if you call them or not but they were called because she is having panic attacks. She was in the ED several days ago for alcohol withdrawal. She feels like she is in the same area. She was discharged to says she has not had any alcohol since then. She says she has a poor food intake, eats mostly fruit little else. States her tremors currently are little worse than usual. This is. She believes she missed her medications today. Is a poor historian, not entirely sure when she had medications last or even exactly how much alcohol she drinks. She was given some 1 by EMS because of the withdrawals but she began to dry heave. She typically takes Ativan 3 times a day did not have any today and was given 1 by EMS. Also Ativan in the ED. In the ED she was tachycardic agitated, she seemed to have altered mental status. She was given Ativan and eventually Haldol and eventually she was calm down and was more able to have a conversation. Workup in the ER showed a ketones in her urine dip chest x-ray unremarkable she was hypoglycemic and had bit of a metabolic acidosis. Sinus tach on EKG. He appeared to be having active withdrawals from alcohol. She denies any hallucinations at this time. 06/06 Feeling a lot better. CIWA scores requiring treatment. Slept well. No o vernight events. 06/07 Continues to feel better and slept really well last night. See was score is now low. Patient doing well no new complaints. Review of Systems: denies headache/fever/chills/nausea/vomiting/chest or abdominal pain/cough/dyspnea/diarrhea. Otherwise see above. - Constitutional Vitals: Vital Signs Temp Pulse Resp BP Pulse Ox 98.8 F 66 13 112/72 95 06/07/18 05:41 06/07/18 05:41 06/07/18 05:41 06/07/18 05:01 06/07/18 05:41 Period Temp Pulse Resp BP Sys/Whitehead Pulse Ox Last 24 Hr 97.2 F-98.8 F 62-75 12-21 89-112/57-90 92-98 Intake and Output 06/06/18 06/07/18 06/07/18 21:59 05:59 13:59 Intake Total 660 1051 Output Total 580 990 Balance 80 61 Weight 49.305 kg Intake & Output: Intake & Output 06/06/18 06/07/18 06/07/18 21:59 05:59 13:59 Intake Total 660 1051 Output Total 580 990 Balance 80 61 Weight 49.305 kg Intake: IV 1051 Lactated Ringers 1,000 ml @ 75 1000 mls/hr IV .[id number] [facility] Rx#: [id number] Vitamin B1 100 mg In Sodium 51 Chloride 0.9% 50 ml @ 50 mls/hr IV DAILY [facility] Rx#:[id number] Oral 660 Output: Urine Catheter Amount 580 990 Other: Meal Dinner Percent of Meal Consumed 100% Feeding Ability Independent Urine Appearance Clear Uretheral ([place]) Clear Urine Color Pale Pale Uretheral ([place]) Bright Yellow Exam: General: Alert, Awake, no acute distress s Eyes/N/T: EOMI, Head/Neck: neck supple, CV: RRR 2/6 SM, Pulm: Clear b/l, no wheezing/rhonchi/rales Abd: soft, nontender, +BS x4 Ext: no clubbing/cyanosis/edema Neuro: Awake alert following commands, good mentation, Moves all extremities Skin: warm/dry Medical - PN: Obj Da - Labs CBC & Chem 7: 06/07/18 03:54 06/07/18 03:54 Labs: Abnormal Lab Results 06/07/18 06/07/18 06/06/18 03:54 03:54 03:52 WBC RBC 2.69 L Hgb 8.6 L Hct 27.2 L POC Hct MCV 101.2 H RDW 14.9 H Gran % Lymph % (Auto) Gran # Lymph # (Auto) [place] # (Auto) Sodium POC Potassium Potassium 3.2 L Chloride Carbon Dioxide POC Total CO2 Anion Gap 7.0 L POC BUN BUN 5 L 3 L Creatinine 0.4 L Glucose POC Glucose Calcium 8.4 L 8.1 L POC WB Ioniz Calcium Magnesium GGT 113 H 110 H Total Protein 5.0 L 5.1 L Albumin 2.7 L 2.9 L Vitamin B12 TSH Urine Ketones Urine Urobilinogen Ur Leukocyte Esterase Ur Squamous Epith Cells Hyaline Casts Urine Opiates Screen U Marijuana (THC) Screen 06/06/18 06/05/18 06/05/18 03:52 20:30 18:30 WBC RBC 2.51 L Hgb 8.2 L Hct 25.2 L POC Hct MCV 100.1 H RDW 14.8 H Gran % Lymph % (Auto) Gran # Lymph # (Auto) [place] # (Auto) Sodium POC Potassium Potassium Chloride Carbon Dioxide POC Total CO2 Anion Gap POC BUN BUN Creatinine Glucose POC Glucose Calcium POC WB Ioniz Calcium Magnesium 1.4 L GGT Total Protein Albumin Vitamin B12 1595 H TSH 8.13 H Urine Ketones Urine Urobilinogen Ur Leukocyte Esterase Ur Squamous Epith Cells Hyaline Casts Urine Opiates Screen U Marijuana (THC) Screen 06/05/18 06/05/18 06/05/18 17:45 17:35 16:01 WBC RBC Hgb Hct POC Hct MCV RDW Gran % Lymph % (Auto) Gran # Lymph # (Auto) [place] # (Auto) Sodium 132 L POC Potassium Potassium Chloride 94 L Carbon Dioxide 13 L POC Total CO2 Anion Gap 25.0 H POC BUN BUN Creatinine Glucose 56 L POC Glucose Calcium POC WB Ioniz Calcium Magnesium GGT Total Protein Albumin Vitamin B12 TSH Urine Ketones 80 A Urine Urobilinogen 4.0 A Ur Leukocyte Esterase 75 A Ur Squamous Epith Cells 5 H Hyaline Casts 3 H Urine Opiates Screen Suspect positive A U Marijuana (THC) Screen Suspect positive A 06/05/18 06/05/18 16:01 11:23 WBC 11.6 H RBC 2.96 L Hgb 9.6 L Hct 29.5 L POC Hct 30.0 L MCV RDW 14.6 H Gran % 80.8 H Lymph % (Auto) 9.5 L Gran # 9.4 H Lymph # (Auto) 1.1 L [place] # (Auto) 1.1 H Sodium POC Potassium 3.2 L Potassium Chloride Carbon Dioxide POC Total CO2 14 L Anion Gap POC BUN 5 L BUN Creatinine Glucose POC Glucose 67 L Calcium POC WB Ioniz Calcium 1.07 L Magnesium GGT Total Protein Albumin Vitamin B12 TSH Urine Ketones Urine Urobilinogen Ur Leukocyte Esterase Ur Squamous Epith Cells Hyaline Casts Urine Opiates Screen U Marijuana (THC) Screen Meds: Medications Acetaminophen (Tylenol) 650 mg PO Q4-6HP PRN PRN Reason: PAIN/FEVER > 101 Bupropion HCl (Wellbutrin Xl) 300 mg PO DAILY [facility] Last Admin: 06/06/18 09:58 Dose: 300 mg Documented by: Carbidopa/Levodopa (Sinemet 25/100) 1 tab PO TID [facility] Last Admin: 06/06/18 20:18 Dose: 1 tab Documented by: Chlordiazepoxide HCl (Librium) 50 mg PO Q6HP PRN PRN Reason: Alcohol Withdrawal Last Admin: 06/05/18 21:42 Dose: 50 mg Documented by: Clonidine HCl (Catapres) 0.1 mg PO Q4HP PRN PRN Reason: Alcohol Withdrawal Last Admin: 06/05/18 21:42 Dose: 0.1 mg Documented by: Docusate Sodium (Colace) 100 mg PO BID [facility] Last Admin: 06/06/18 20:18 Dose: 100 mg Documented by: Duloxetine HCl (Cymbalta) 90 mg PO DAILY [facility] Last Admin: 06/06/18 09:59 Dose: 90 mg Documented by: Enoxaparin Sodium (Lovenox) 40 mg SQ DAILY [facility] Last Admin: 06/06/18 09:59 Dose: 40 mg Documented by: Famotidine (Pepcid) 20 mg IV Q12 [facility] Last Admin: 06/06/18 20:18 Dose: 20 mg Documented by: Folic Acid (Folic Acid) 1 mg PO DAILY [facility] Last Admin: 06/06/18 09:59 Dose: 1 mg Documented by: Haloperidol Lactate (Haldol) 0.5 mg IM Q2HP PRN PRN Reason: Alcohol Withdrawal Thiamine HCl 100 mg/ Sodium (Chloride) 51 mls @ 50 mls/hr IV DAILY [facility] Last Infusion: 06/07/18 00:06 Dose: Infused Documented by: Iron Carb/Multivit/[place]/Folic Acid (Multivitamin W/Minerals) 1 tab PO DAILY [facility] Last Admin: 06/06/18 09:59 Dose: 1 tab Documented by: Levothyroxine Sodium (Synthroid) 75 mcg PO QAMAC [facility] Last Admin: 06/07/18 07:25 Dose: 75 mcg Documented by: Lorazepam (Ativan) 0 mg IV Q4HP PRN; Protocol PRN Reason: Alcohol Withdrawal Lorazepam (Ativan) 1 mg PO BIDP PRN PRN Reason: Anxiety Last Admin: 06/06/18 20:18 Dose: 1 mg Documented by: Ondansetron HCl (Zofran) 4 mg IV Q4-6HP PRN PRN Reason: Nausea And Vomiting Pregabalin (Lyrica) 150 mg PO TID [facility] Last Admin: 06/06/18 20:22 Dose: 150 mg Documented by: Promethazine HCl (Phenergan) 12.5 mg IV Q4-6HP PRN PRN Reason: Nausea And Vomiting Propranolol HCl (Inderal) 10 mg PO TID [facility] Last Admin: 06/06/18 20:18 Dose: Not Given Documented by: Senna (Senokot) 1 tab PO HSP PRN PRN Reason: Constipation Sodium Chloride (Saline Flush) 10 ml IV Q8 [facility] Last Admin: 06/06/18 20:22 Dose: 10 ml Documented by: Medical - PN: A/P - Time Spent With Patient Total time spent is greater than 50% in coordination of care (as documented) at patient's floor/unit and/or counseling patient: - Narrative A/P Narrative: A: *Alcohol withdrawal (etoh abuse 4+ drinks/day): *Hypoglycemia: Secondary to above, resolved *Hyponatremia/kalemia/mag: Secondary to above including poor dietary intake. Improved *Anion gap metabolic acidosis: Secondary to likely ketoacidosis from alcohol intoxication and likely starvation ketosis component. REsolved *Parkinson's: *Depression/anxiety: *Chronic Pain LBP & Neuropathy: *Hypothyroidism: *Macrocytic anemia, chronic: Secondary to above, b12/folate ok, dilutional acute component *hypothyroidism: *Recent surgery to left foot by Dr. khan, P: -CIWA/vitamins/benzo's -prn Electrolyte replacement -Continue home psych meds -continue levothyroxine, may need increase in dose, f/u PCP -wound care -pt/ot -ppx: lovenox/pepcid
[2018-06-07] MEDS: FAMOTIDINE/PF 20 MG/2 ML VIAL IV SCH ×2 (09:10→20:18)
[2018-06-07] MEDS: ENOXAPARIN 40 MG/0.4 ML SYRINGE SQ SCH (09:11)
[2018-06-07] MEDS: THIAMINE 100 MG in 0.9 % SODIUM CHLORIDE 50 ML IV SCH (09:11)
[2018-06-07] MEDS: MULTIVIT,THER IRON,CA,FA & MIN 1 TABLET PO SCH (09:11)
[2018-06-07] MEDS: FOLIC ACID 1 MG TABLET PO SCH (09:12)
[2018-06-07] MEDS: DOCUSATE SODIUM 100 MG CAPSULE PO SCH ×2 (09:12→20:18)
[2018-06-07] MEDS: CARBIDOPA/LEVODOPA 25/100 TABLET PO SCH ×3 (09:20→20:17)
[2018-06-07] MEDS: DULoxetine 30 MG CAPSULE PO SCH (09:20)
[2018-06-07] MEDS: PREGABALIN 150 MG CAPSULE PO SCH ×3 (09:21→20:18)
[2018-06-07] MEDS: PROPRANOLOL 10 MG TABLET PO SCH ×3 (09:21→20:18)
[2018-06-07] MEDS: buPROPion 150 MG TAB.XL.24H PO SCH (09:22)
[2018-06-07] MEDS: LORazepam 1 MG TABLET PO PRN (09:37)
[2018-06-07] MEDS ORDERED: LORazepam 1 MG TABLET PO PRN (10:23)
[2018-06-07] MEDS ORDERED: LORazepam 2 MG/ML VIAL IV PRN (10:23)
[2018-06-07] MEDS ORDERED: HALOPERIDOL LACTATE 5 MG/ML VIAL IM PRN (10:23)
[2018-06-07] MEDS ORDERED: PROMETHAZINE 25 MG/ML VIAL IV PRN (10:23)
[2018-06-07] MEDS ORDERED: ACETAMINOPHEN 325 MG TABLET PO PRN (10:23)
[2018-06-07] MEDS ORDERED: chlordiazePOXIDE 25 MG CAPSULE PO PRN (10:23)
[2018-06-07] MEDS ORDERED: cloNIDine HCL 0.1 MG TABLET PO PRN (10:23)
[2018-06-07] MEDS ORDERED: ONDANSETRON 4 MG/2 ML VIAL IV PRN (10:23)
[2018-06-07] MEDS ORDERED: SENNOSIDES 1 TABLET PO PRN (21:00)
[2018-06-08 05:36] LABS: Mean Corpuscular HGB Conc 32.3 g/dL (31.0-36.0); Platelet Count 284 K/mcL (140-440); RBC 2.73 M/mcL (4.00-5.20); Red Cell Distribution Width 14.9 % (11.5-14.5)
[2018-06-08] MEDS: 0.9 % SODIUM CHLORIDE 10 ML SYRINGE IV SCH ×3 (05:58→21:11)
[2018-06-08 06:02] LABS: ALT/SGPT < 5 U/l (0-40); Albumin 2.8 gm/dL (3.2-5.2); Albumin/Globulin Ratio 1.2 (1.0-2.3); Alkaline Phosphatase 55 U/L (39-117); Bilirubin,Direct < 0.2 mg/dL (0.0-0.3); Blood Urea Nitrogen 7 mg/dl (6-20); Gamma Glutamyl Transpeptidase 115 U/L (5-36); Uric Acid 3.7 mg/dL (2.5-8.0)
[2018-06-08 06:18] LABS: Anisocytosis 1+ (NONE SEEN); Band Neutrophils % 2 % (0-10); Lymphocytes % 44 % (15-49); Macrocytosis 1+ (NONE SEEN); Monocytes % (Manual) 6 % (1-12); Platelet Estimate NORMAL (NORMAL); RBC Morphology ABNORM (NORMAL); Segmented Neutrophils % 48 % (38-78)
[2018-06-08] MEDS ORDERED: LEVOTHYROXINE 75 MCG TABLET PO SCH (07:30)
[2018-06-08] MEDS: PREGABALIN 150 MG CAPSULE PO SCH ×3 (08:17→21:08)
[2018-06-08] MEDS: FAMOTIDINE/PF 20 MG/2 ML VIAL IV SCH ×2 (08:18→21:11)
[2018-06-08] MEDS: CARBIDOPA/LEVODOPA 25/100 TABLET PO SCH ×3 (08:18→21:10)
[2018-06-08] MEDS: PROPRANOLOL 10 MG TABLET PO SCH ×3 (08:19→21:10)
[2018-06-08] MEDS ORDERED: MULTIVIT,THER IRON,CA,FA & MIN 1 TABLET PO SCH (09:00)
[2018-06-08] MEDS ORDERED: ENOXAPARIN 40 MG/0.4 ML SYRINGE SQ SCH (09:00)
[2018-06-08] MEDS ORDERED: FOLIC ACID 1 MG TABLET PO SCH (09:00)
[2018-06-08] MEDS ORDERED: buPROPion 150 MG TAB.XL.24H PO SCH (09:00)
[2018-06-08] MEDS ORDERED: THIAMINE 100 MG TABLET PO SCH ×2 (09:00)
[2018-06-08] MEDS ORDERED: DULoxetine 30 MG CAPSULE PO SCH (09:00)
[2018-06-08] MEDS: DOCUSATE SODIUM 100 MG CAPSULE PO SCH ×2 (09:18→21:08)
--- NOTE | 2018-06-08 10:21 | Internal Med Progress Note ---
Medical - PN: Subj Patient information: Note initiated : 06/08/18 at 10:18 am Service Date, if different from initiated Date: [] Patient: Reba Santiago a 57 y/o F admitted on 06/05/18 for Alcohol withdrawal. Chief Complaint: [] Interval history: Ms. Santiago is a 57 year old F the ED for panic attacks. Not sure how EMS was called if you call them or not but they were called because she is having panic attacks. She was in the ED several days ago for alcohol withdrawal. She feels like she is in the same area. She was discharged to says she has not had any alcohol since then. She says she has a poor food intake, eats mostly fruit little else. States her tremors currently are little worse than usual. This is. She believes she missed her medications today. Is a poor historian, not entirely sure when she had medications last or even exactly how much alcohol she drinks. She was given some 1 by EMS because of the withdrawals but she began to dry heave. She typically takes Ativan 3 times a day did not have any today and was given 1 by EMS. Also Ativan in the ED. In the ED she was tachycardic agitated, she seemed to have altered mental status. She was given Ativan and eventually Haldol and eventually she was calm down and was more able to have a conversation. Workup in the ER showed a ketones in her urine dip chest x-ray unremarkable she was hypoglycemic and had bit of a metabolic acidosis. Sinus tach on EKG. He appeared to be having active withdrawals from alcohol. She denies any hallucinations at this time. 06/06 Feeling a lot better. CIWA scores requiring treatment. Slept well. No overnight events. 06/07 Continues to feel better and slept really well last night. See was score is now low. Patient doing well no new complaints. 3-patient doing better. No overnight events. She was score 3-5. Transfer to [facility]. No tremor anxiety or agitation. Tolerating diet. Ongoing physical therapy. - Constitutional Vitals: Vital Signs Temp Pulse Resp BP Pulse Ox 98.4 F 65 14 117/68 100 06/08/18 04:47 06/08/18 03:44 06/08/18 00:27 06/08/18 03:44 06/08/18 08:00 Period Temp Pulse Resp BP Sys/Whitehead Pulse Ox Last 24 Hr 97.9 F-99.0 F 65-65 14-20 112-129/60-86 96-100 Intake and Output 06/07/18 06/08/18 06/08/18 21:59 05:59 13:59 Intake Total 720 Output Total 650 1650 500 Balance 70 -1650 -500 Weight 111 lb 1.6 oz Intake & Output: Intake & Output 06/07/18 06/08/18 06/08/18 21:59 05:59 13:59 Intake Total 720 Output Total 650 1650 500 Balance 70 -1650 -500 Weight 111 lb 1.6 oz Intake: Oral 720 Output: Urine Catheter Amount 650 1650 500 Other: Meal Dinner Percent of Meal Consumed 100% Feeding Ability Assist with Tray Set Up Urine Appearance Clear Clear Clear Sediment Urine Color Straw Pale Pale Urine Odor Normal General appearance: no acute distress Exam: Alert oriented Nonlabored breathing Ambulating Medical - PN: Obj Da - Labs CBC & Chem 7: 06/08/18 03:39 06/08/18 03:39 Labs: Abnormal Lab Results 06/08/18 06/08/18 06/07/18 03:39 03:39 03:54 WBC RBC 2.73 L Hgb 8.9 L Hct 27.6 L POC Hct MCV 101.0 H RDW 14.9 H Gran % Lymph % (Auto) Gran # Lymph # (Auto) [place] # (Auto) WBC Morphology Abnorm A Vacuolated Monocytes 1+ A RBC Morphology Abnorm A Anisocytosis 1+ A Macrocytosis 1+ A Sodium POC Potassium Potassium Chloride Carbon Dioxide POC Total CO2 Anion Gap 7.0 L POC BUN BUN 5 L Creatinine Glucose POC Glucose Calcium 8.3 L 8.4 L POC WB Ioniz Calcium Magnesium GGT 115 H 113 H Total Protein 5.2 L 5.0 L Albumin 2.8 L 2.7 L Vitamin B12 TSH Urine Ketones Urine Urobilinogen Ur Leukocyte Esterase Ur Squamous Epith Cells Hyaline Casts Urine Opiates Screen U Marijuana (THC) Screen 06/07/18 06/06/18 06/06/18 03:54 03:52 03:52 WBC RBC 2.69 L 2.51 L Hgb 8.6 L 8.2 L Hct 27.2 L 25.2 L POC Hct MCV 101.2 H 100.1 H RDW 14.9 H 14.8 H Gran % Lymph % (Auto) Gran # Lymph # (Auto) [place] # (Auto) WBC Morphology Vacuolated Monocytes RBC Morphology Anisocytosis Macrocytosis Sodium POC Potassium Potassium 3.2 L Chloride Carbon Dioxide POC Total CO2 Anion Gap POC BUN BUN 3 L Creatinine 0.4 L Glucose POC Glucose Calcium 8.1 L POC WB Ioniz Calcium Magnesium GGT 110 H Total Protein 5.1 L Albumin 2.9 L Vitamin B12 TSH Urine Ketones Urine Urobilinogen Ur Leukocyte Esterase Ur Squamous Epith Cells Hyaline Casts Urine Opiates Screen U Marijuana (THC) Screen 06/05/18 06/05/18 06/05/18 20:30 18:30 17:45 WBC RBC Hgb Hct POC Hct MCV RDW Gran % Lymph % (Auto) Gran # Lymph # (Auto) [place] # (Auto) WBC Morphology Vacuolated Monocytes RBC Morphology Anisocytosis Macrocytosis Sodium POC Potassium Potassium Chloride Carbon Dioxide POC Total CO2 Anion Gap POC BUN BUN Creatinine Glucose POC Glucose Calcium POC WB Ioniz Calcium Magnesium 1.4 L GGT Total Protein Albumin Vitamin B12 1595 H TSH 8.13 H Urine Ketones Urine Urobilinogen Ur Leukocyte Esterase Ur Squamous Epith Cells Hyaline Casts Urine Opiates Screen Suspect positive A U Marijuana (THC) Screen Suspect positive A 06/05/18 06/05/18 06/05/18 17:35 16:01 16:01 WBC 11.6 H RBC 2.96 L Hgb 9.6 L Hct 29.5 L POC Hct MCV RDW 14.6 H Gran % 80.8 H Lymph % (Auto) 9.5 L Gran # 9.4 H Lymph # (Auto) 1.1 L [place] # (Auto) 1.1 H WBC Morphology Vacuolated Monocytes RBC Morphology Anisocytosis Macrocytosis Sodium 132 L POC Potassium Potassium Chloride 94 L Carbon Dioxide 13 L POC Total CO2 Anion Gap 25.0 H POC BUN BUN Creatinine Glucose 56 L POC Glucose Calcium POC WB Ioniz Calcium Magnesium GGT Total Protein Albumin Vitamin B12 TSH Urine Ketones 80 A Urine Urobilinogen 4.0 A Ur Leukocyte Esterase 75 A Ur Squamous Epith Cells 5 H Hyaline Casts 3 H Urine Opiates Screen U Marijuana (THC) Screen 06/05/18 11:23 WBC RBC Hgb Hct POC Hct 30.0 L MCV RDW Gran % Lymph % (Auto) Gran # Lymph # (Auto) [place] # (Auto) WBC Morphology Vacuolated Monocytes RBC Morphology Anisocytosis Macrocytosis Sodium POC Potassium 3.2 L Potassium Chloride Carbon Dioxide POC Total CO2 14 L Anion Gap POC BUN 5 L BUN Creatinine Glucose POC Glucose 67 L Calcium POC WB Ioniz Calcium 1.07 L Magnesium GGT Total Protein Albumin Vitamin B12 TSH Urine Ketones Urine Urobilinogen Ur Leukocyte Esterase Ur Squamous Epith Cells Hyaline Casts Urine Opiates Screen U Marijuana (THC) Screen Meds: Medications Acetaminophen (Tylenol) 650 mg PO Q4-6HP PRN PRN Reason: PAIN/FEVER > 101 Bupropion HCl (Wellbutrin Xl) 300 mg PO DAILY [facility] Last Admin: 06/08/18 08:18 Dose: 300 mg Documented by: Carbidopa/Levodopa (Sinemet 25/100) 1 tab PO TID [facility] Last Admin: 06/08/18 08:18 Dose: 1 tab Documented by: Chlordiazepoxide HCl (Librium) 50 mg PO Q6HP PRN PRN Reason: Alcohol Withdrawal Last Admin: 06/07/18 20:35 Dose: 50 mg Documented by: Clonidine HCl (Catapres) 0.1 mg PO Q4HP PRN PRN Reason: Alcohol Withdrawal Docusate Sodium (Colace) 100 mg PO BID [facility] Last Admin: 06/08/18 09:18 Dose: Not Given Documented by: Duloxetine HCl (Cymbalta) 90 mg PO DAILY [facility] Last Admin: 06/08/18 08:17 Dose: 90 mg Documented by: Enoxaparin Sodium (Lovenox) 40 mg SQ DAILY [facility] Last Admin: 06/08/18 08:17 Dose: 40 mg Documented by: Famotidine (Pepcid) 20 mg IV Q12 [facility] Last Admin: 06/08/18 08:18 Dose: 20 mg Documented by: Folic Acid (Folic Acid) 1 mg PO DAILY [facility] Last Admin: 06/08/18 08:18 Dose: 1 mg Documented by: Haloperidol Lactate (Haldol) 0.5 mg IM Q2HP PRN PRN Reason: Alcohol Withdrawal Iron Carb/Multivit/[place]/Folic Acid (Multivitamin W/Minerals) 1 tab PO DAILY [facility] Last Admin: 06/08/18 08:18 Dose: 1 tab Documented by: Levothyroxine Sodium (Synthroid) 75 mcg PO QAMAC [facility] Last Admin: 06/08/18 07:39 Dose: 75 mcg Documented by: Lorazepam (Ativan) 0 mg IV Q4HP PRN; Protocol PRN Reason: Alcohol Withdrawal Lorazepam (Ativan) 1 mg PO BIDP PRN PRN Reason: Anxiety Last Admin: 06/07/18 20:18 Dose: 1 mg Documented by: Ondansetron HCl (Zofran) 4 mg IV Q4-6HP PRN PRN Reason: Nausea And Vomiting Pregabalin (Lyrica) 150 mg PO TID [facility] Last Admin: 06/08/18 08:17 Dose: 150 mg Documented by: Promethazine HCl (Phenergan) 12.5 mg IV Q4-6HP PRN PRN Reason: Nausea And Vomiting Propranolol HCl (Inderal) 10 mg PO TID [facility] Last Admin: 06/08/18 08:19 Dose: 10 mg Documented by: Senna (Senokot) 1 tab PO HSP PRN PRN Reason: Constipation Sodium Chloride (Saline Flush) 10 ml IV Q8 [facility] Last Admin: 06/08/18 05:58 Dose: 10 ml Documented by: Thiamine HCl (Vitamin B1) 100 mg PO DAILY [facility] Last Admin: 06/08/18 08:18 Dose: 100 mg Documented by: Medical - PN: A/P - Time Spent With Patient Total time spent is greater than 50% in coordination of care (as documented) at patient's floor/unit and/or counseling patient: 15 - 24 minutes (1) Alcohol withdrawal delirium Status: Acute Assessment and plan: * Acute alcohol withdrawal with delirium clinically improved. Transfer to medical floor. Serial scores quite low. Continue chlordiazepoxide as needed. Alcohol cessation counseling/rehabilitation resources as outpatient to be coordinated by case management. * Electrolyte abnormalities resolved with aggressive replacement. * Anxiety disorder continue bupropion/Cymbalta * History of hypothyroidism continue thyroxine * History of Parkinson's disease continue levodopa carbidopa * Prophylaxis enoxaparin Plan * Transfer to medical floor * Continue nutritional support/PT OT * Case management to arrange outpatient resources for alcohol rehabilitation/cessation * Possible discharge in 24 hours Current Visit: No
[2018-06-08] MEDS ORDERED: ACETAMINOPHEN 325 MG TABLET PO PRN (11:20)
[2018-06-08] MEDS ORDERED: LORazepam 2 MG/ML VIAL IV PRN (11:20)
[2018-06-08] MEDS ORDERED: PROMETHAZINE 25 MG/ML VIAL IV PRN (11:20)
[2018-06-08] MEDS ORDERED: chlordiazePOXIDE 25 MG CAPSULE PO PRN (11:20)
[2018-06-08] MEDS ORDERED: ONDANSETRON 4 MG/2 ML VIAL IV PRN (11:20)
[2018-06-08] MEDS ORDERED: SENNOSIDES 1 TABLET PO PRN (11:20)
[2018-06-08] MEDS ORDERED: HALOPERIDOL LACTATE 5 MG/ML VIAL IM PRN (11:20)
[2018-06-08] MEDS ORDERED: cloNIDine HCL 0.1 MG TABLET PO PRN (11:20)
[2018-06-08] MEDS: LORazepam 1 MG TABLET PO PRN (15:36)
[2018-06-09 05:07] LABS: Mean Cell Volume 101.7 fL (80.0-100.0); Platelet Count 325 K/mcL (140-440); RBC 2.87 M/mcL (4.00-5.20); Red Cell Distribution Width 15.5 % (11.5-14.5)
[2018-06-09 05:34] LABS: ALT/SGPT < 5 U/l (0-40); Albumin 3.1 gm/dL (3.2-5.2); Albumin/Globulin Ratio 1.2 (1.0-2.3); Alkaline Phosphatase 52 U/L (39-117); Bilirubin,Direct < 0.2 mg/dL (0.0-0.3); Blood Urea Nitrogen 10 mg/dl (6-20); Gamma Glutamyl Transpeptidase 112 U/L (5-36)
[2018-06-09 06:23] LABS: Lymphocytes % 42 % (15-49); Macrocytosis 1+ (NONE SEEN); Monocytes % (Manual) 8 % (1-12); Platelet Estimate NORMAL (NORMAL); RBC Morphology ABNORM (NORMAL); Segmented Neutrophils % 50 % (38-78)
[2018-06-09] MEDS: 0.9 % SODIUM CHLORIDE 10 ML SYRINGE IV SCH (06:41)
[2018-06-09] MEDS ORDERED: LEVOTHYROXINE 75 MCG TABLET PO SCH (07:30)
[2018-06-09] MEDS ORDERED: FOLIC ACID 1 MG TABLET PO SCH (09:00)
[2018-06-09] MEDS ORDERED: MULTIVIT,THER IRON,CA,FA & MIN 1 TABLET PO SCH (09:00)
[2018-06-09] MEDS ORDERED: DULoxetine 30 MG CAPSULE PO SCH (09:00)
[2018-06-09] MEDS ORDERED: buPROPion 150 MG TAB.XL.24H PO SCH (09:00)
[2018-06-09] MEDS ORDERED: THIAMINE 100 MG TABLET PO SCH (09:00)
[2018-06-09] MEDS ORDERED: ENOXAPARIN 40 MG/0.4 ML SYRINGE SQ SCH (09:00)
[2018-06-09] MEDS: DOCUSATE SODIUM 100 MG CAPSULE PO SCH (09:31)
[2018-06-09] MEDS: PREGABALIN 150 MG CAPSULE PO SCH (09:31)
[2018-06-09] MEDS: CARBIDOPA/LEVODOPA 25/100 TABLET PO SCH (09:33)
--- NOTE | 2018-06-09 09:43 | Discharge Summary ---
Medical - DS: Prov Patient information: Note initiated : 06/09/18 at 9:41 am Service Date, if different from initiated Date: [] Patient: Reba Santiago 57 y/o F admitted on 06/05/18 for Alcohol withdrawal. Chief Complaint: [] Date of admission: 06/05/18 20:09 Discharge date: 06/09/18 Primary care physician: Jaclyn Soto Consults: 06/05/18 Consult to Physician [CONS] Stat Comment: Consulting Provider: Masoud Martniez Reason For Exam: Physician to Consult 06/06/18 11:40 Consult to Physician [CONS] Routine Comment: left medial malleolus Consulting Provider: Kirk Denis Reason For Exam: Physician to Consult Medical - DS: Meds - Discharge Medications Active and Home Medications: Home Medications levothyroxine 75 mcg capsule 75 mcg PO QDAY #90 cap 08/14/16 [Rx Confirmed 06/05/18 Last Taken 03/04/17] buPROPion HCL [Bupropion Xl] 300 mg PO DAILY 10/29/17 [History Confirmed 06/05/18 Last Taken Unknown] Carbidopa/Levodopa [Carbidopa-Levo 25-100 mg Odt] 1 each PO TID 10/30/17 [History Confirmed 06/05/18 Last Taken Unknown] DULoxetine HCL [Cymbalta] 90 mg PO DAILY 10/30/17 [History Confirmed 06/05/18 Last Taken Unknown] Estradiol [Estrace] 2 mg PO DAILY 10/30/17 [History Confirmed 06/05/18 Last Taken Unknown] LORazepam [Ativan] 1 mg PO BIDP PRN 10/30/17 [History Confirmed 06/05/18 Last Taken Unknown] Pregabalin [Lyrica] 150 mg PO TID 10/30/17 [History Confirmed 06/05/18 Last Taken Unknown] traZODone HCL [Trazodone HCl] 100 - 300 mg PO HS PRN 10/30/17 [History Confirmed 06/05/18 Last Taken Unknown] Hydrocodone/APAP 7.5/325Mg [[place] 7.5-325Mg] 1 tab PO TIDP PRN 06/05/18 [History Confirmed 06/05/18 Last Taken Unknown] Pregabalin [Lyrica] 150 mg PO TID 06/05/18 [History Confirmed 06/05/18 Last Taken Unknown] Propranolol [Inderal] 10 mg PO TID 06/05/18 [History Confirmed 06/05/18 Last Taken Unknown] Medical - DS: Hosp Hospital course: Discharge diagnosis * Acute alcohol withdrawal with delirium clinically improved. Transfer to medical floor. Serial scores quite low. Continue chlordiazepoxide as needed. Alcohol cessation counseling/rehabilitation resources as outpatient to be co ordinated by case management. * Electrolyte abnormalities resolved with aggressive replacement. * Anxiety disorder continue bupropion/Cymbalta * History of hypothyroidism continue thyroxine * History of Parkinson's disease continue levodopa carbidopa Brief hospital course Ms. Santiago is a 57 year old F the ED for panic attacks. Not sure how EMS was called if you call them or not but they were called because she is having panic attacks. She was in the ED several days ago for alcohol withdrawal. She feels like she is in the same area. She was discharged to says she has not had any alcohol since then. She says she has a poor food intake, eats mostly fruit little else. States her tremors currently are little worse than usual. This is. She believes she missed her medications today. Is a poor historian, not entirely sure when she had medications last or even exactly how much alcohol she drinks. She was given some 1 by EMS because of the withdrawals but she began to dry heave. She typically takes Ativan 3 times a day did not have any today and was given 1 by EMS. Also Ativan in the ED. In the ED she was tachycardic agitated, she seemed to have altered mental status. She was given Ativan and eventually Haldol and eventually she was calm down and was more able to have a conversation. Workup in the ER showed a ketones in her urine dip chest x-ray unremarkable she was hypoglycemic and had bit of a metabolic acidosis. Sinus tach on EKG. He appeared to be having active withdrawals from alcohol. She denies any hallucinations at this time. 06/06 Feeling a lot better. CIWA scores requiring treatment. Slept well. No overnight events. 06/07 Continues to feel better and slept really well last night. See was score is now low. Patient doing well no new complaints. 06/08-patient doing better. No overnight events. She was score 3-5. Transfer to [facility]. No tremor anxiety or agitation. Tolerating diet. Ongoing physical therapy. 06/09-patient doing well. No overnight events including dietary agitation and hallucinations. No concerns per staff. No fever chills nausea vomiting. Discharging home with advice to follow with Dr. Brock orthopedics/PCP. Counseled on alcohol cessation Discharge diagnosis: . - Time Spent with Patient Total time spent providing and/or coordinating discharge services: Greater than 30 minutes Medical - DS: Exam - Constitutional Vitals: Vital Signs Temp Pulse Pulse Resp BP BP Pulse Ox 06/09/18 08:00 98.8 F 14 L 14 130/90 98 06/09/18 06:37 16 06/09/18 04:00 97.8 F 70 16 128/89 96 06/08/18 16:21 97.9 F 16 115/77 95 06/08/18 12:00 97.9 F 69 107/73 99 Intake and Output 06/08/18 06/09/18 06/09/18 21:59 05:59 13:59 Intake Total 360 400 Output Total 900 300 Balance 360 -500 -300 Intake: Oral 360 400 Output: Void Amount 900 300 Other: Meal Dinner Percent of Meal Consumed 100% Feeding Ability Independent Urine Appearance Clear Clear Urine Color Straw Pale Urine Odor Normal # Voids 1 1 1 # Bowel Movements 1 Weight 107 lb 8 oz Medical - DS: Data Labs on day of discharge: Labs from last 24 hours 06/09/18 06/09/18 04:11 04:11 WBC 5.1 RBC 2.87 L Hgb 9.3 L Hct 29.2 L MCV 101.7 H MCH 32.5 MCHC 32.0 RDW 15.5 H Plt Count 325 MPV 8.0 Total Counted 100 Seg Neutrophils % 50 Band Neutrophils % Not Reportable Lymphocytes % 42 Monocytes % (Manual) 8 Platelet Estimate Normal RBC Morphology Abnorm A Polychromasia 1+ A Macrocytosis 1+ A Sodium 135 Potassium 4.3 Chloride 100 Carbon Dioxide 28 Anion Gap 7.0 L BUN 10 Creatinine 0.6 GFR Calculation 102 Glucose 100 Uric Acid 4.0 Calcium 8.7 Phosphorus 3.9 Magnesium 1.6 Total Bilirubin 0.2 Direct Bilirubin < 0.2 GGT 112 H AST 16 ALT < 5 Alkaline Phosphatase 52 Lactate Dehydrogenase 128 Total Protein 5.6 L Albumin 3.1 L Globulin 2.5 Albumin/Globulin Ratio 1.2 Triglycerides 89 Medical - DS: A/P - Patient/Caregiver Discharge Instructions Activity: as per physical therapy Diet: Regular Diet Additional Instructions: Follow-up with primary care if you continue to have anxiety attacks. Return to ED as needed with additional concerns. F/u orthopedics Dr. Alexei Brock as scheduled and continue instruction per orthopedics Refrain from alcohol Continue fall precautions Return to ER if worsening fever chills shortness of breath, diarrhea, bleeding Continue diet and activity as advised Discussed importance of medication adherence Please review medication list with patient prior to discharge Please schedule follow-up with PCP/Providers prior to discharge and provide printouts - Problem Maintenance (1) Alcohol withdrawal delirium Status: Acute - Follow up Plan Follow up with: Kirk Denis MD [Physician] - ([facility] discharge) Jaclyn Soto [Primary Care Provider] - Disposition: Home, Self-Care Prognosis: Fair Rehab Potential: Fair I certify that the patient requires SNF services: No Overall status at discharge: patient is progressing back to baseline
[2018-06-09] MEDS: FAMOTIDINE/PF 20 MG/2 ML VIAL IV SCH (09:52)
[2018-06-09] MEDS: PROPRANOLOL 10 MG TABLET PO SCH (09:52)
[2018-06-09] MEDS: LORazepam 1 MG TABLET PO PRN (09:53)
== END 2018-06-09 11:15 | disposition home or self-care (01) | DRG 897 ==
LOC: ED 10:48 → ICU 20:09 → MEDSUR 06-08 15:04
PROVIDERS: ADMIT Internal Medicine; ATTEND Internal Medicine

== ENCOUNTER 2021-02-11 10:09 | Observation (INO) ==
[2021-02-11] MEDS ORDERED: 0.9 % SODIUM CHLORIDE 1,000 ML IV ONE (10:21)
--- NOTE | 2021-02-11 10:26 | Emergency Department Note ---
HPI General Chief complaint: Weakness Stated complaint: weakness Time Seen by Provider: 02/11/21 10:21 Source: patient Mode of arrival: ambulatory Limitations: no limitations History of Present Illness HPI Narrative: Patient is a 60-year-old lady who arrives emergency department weakness. History is provided by the patient and paramedics. The patient weakness since February 02. She was seen at [facility] at that time and diagnosed with a UTI. She has completed her antibiotics continues to feel neurolyse weakness and fatigue. She had an appointment with her primary care doctor this morning but her home health aide assessed her and thought she required more emergent evaluation and so she sent her to the emergency department. Patient says she has been having a difficult time uri nating for the past few days. She notes very thick vaginal discharge that she has to manually remove in order to urinate. She also has a sensation of a spring in her vagina. Nothing seems to make the symptoms any better or worse. She denies any fever or chills. Related Data Home Medications Medication Instructions Recorded Confirmed bupropion HCl 300 mg PO DAILY 10/29/17 03/04/19 carbidopa-levodopa 2 ea PO QID 10/30/17 03/04/19 duloxetine [Cymbalta] 90 mg PO DAILY 10/30/17 03/04/19 estradiol 2 mg PO DAILY 10/30/17 03/04/19 lorazepam 1 mg PO BIDP PRN 10/30/17 03/04/19 pregabalin [Lyrica] 150 mg PO TID 10/30/17 03/04/19 trazodone 100 - 300 mg PO HSP PRN 10/30/17 03/04/19 propranolol 10 mg PO TID 06/05/18 03/04/19 levothyroxine 50 mcg PO QDAY 11/15/18 03/04/19 aripiprazole 15 mg PO DAILY 03/04/19 03/04/19 buspirone 10 mg PO TID 03/04/19 03/04/19 Previous Rx's Medication Instructions Recorded nitrofurantoin monohyd/m-cryst 100 mg PO BID #14 cap 03/04/19 Allergies Allergy/AdvReac Type Severity Reaction Status Date / Time No Known Drug Allergies Allergy Verified 03/04/19 11:59 Review of Systems ROS ROS Narrative: Narrative: All systems ED: reviewed and negative except as stated. Constitutional: Denies fever and chills Respiratory: Reports shortness of breath; Denies cough Gastrointestinal: Denies abdominal pain, nausea and vomiting [facility] Narrative Patient History Narrative: Narrative: Medical/Surgical/Family History All Active Problems (Updated 02/11/21 @ 13:56 by Andi Grissom DO) Urosepsis (Acute) Bacteremia due to Escherichia coli (Acute) Anxiety (Acute) Ankle fracture, left (Acute) Alcohol withdrawal (Acute) Alcohol withdrawal delirium (Acute) Hypomagnesemia (Acute) Acute anxiety (Acute) Skin ulcer of left ankle, limited to breakdown of skin (Chronic) Suicidal ideation (Acute) Depression (Acute) UTI (urinary tract infection) (Acute) UTI (urinary tract infection) (Acute) Acute metabolic encephalopathy (Acute) Acute urinary retention (Acute) Primary insomnia (Chronic) Hyperthyroidism (Acute) Peripheral neuropathy (Chronic) Generalized anxiety disorder (Chronic) History of diabetes mellitus (Chronic) Medical History (Updated 02/11/21 @ 13:56 by Andi Grissom DO) Bacteremia due to Escherichia coli Urosepsis Social History Smoking Status: Never smoker Alcohol Intake Frequency: 2+ drinks per day Substance Use: marijuana Exam Narrative Narrative: I reviewed the vital signs. Gen -patient is awake and alert and appears quite anxious. HEENT -head is atraumatic. There is no conjunctival pallor or scleral icterus. Mucous membranes are dry. CV -S1-S2 regular rate and rhythm. Peripheral pulses are palpable. There is no JVD. Resp -breathing is nonlabored. Lungs are clear to auscultation bilaterally. There is no cyanosis. GI - Abdomen is soft and nontender to palpation. There is no guarding or rebound tenderness. Derm -skin is warm and dry. There is no visible rash. MSK -present extremities are atraumatic. Psych -patient has a very anxious affect the patient does not appear internally stimulated. Neuro -patient is oriented to person and situation. She is disoriented to the year stating it is 2021 but is aware that the month is February. She answers questions appropriately with fluent speech. There is no facial asymmetry. Patient moves all present extremities equally. General Limitations: no limitations Course Vital Signs Vital signs: Vital Signs Temperature 96.7 F L 02/11/21 10:10 Pulse Rate 76 02/11/21 10:10 Respiratory Rate 16 02/11/21 10:10 Blood Pressure 164/107 02/11/21 10:10 Pulse Oximetry (%) 96 02/11/21 10:10 Temperature 96.7 F L 02/11/21 10:10 Pulse Rate 78 02/11/21 13:52 Respiratory Rate 18 02/11/21 13:52 Blood Pressure 114/49 02/11/21 13:52 Pulse Oximetry (%) 94 02/11/21 13:52 [facility] MDM Narrative Medical decision making narrative: I performed a pelvic examination chaperoned by the patient's nurse and student nurse. There are no external lesions. There is a small amount of thick white vaginal discharge. Patient presents with difficulty urinating. I personally performed a limited bedside ultrasound of the patient's urinary bladder. It is significantly distended despite inability of the patient to urinate. Her nurse inserted a [place] catheter and had immediate return of a large amount of clear urine. She was also concerned about vaginal discharge but on my exam does not appear to have any abnormal vaginal discharge. She has been perseverating about this throughout her emergency department stay, remarking that there is a spring in her vagina and that she is having a great deal of difficulty urinating because o f it. Labs are remarkable for minimal leukocytosis and no significant electrolyte derangements. She does have very significant pyuria on a catheterized urine specimen. Given this her urinary symptoms and altered mentation I think her presentation is most consistent with UTI and metabolic encephalopathy. I considered the possibility of meningitis or encephalitis but given lack of fevers or headaches I do not think she would benefit from a lumbar puncture. I discussed the test results with the patient. She is agreeable with plan for admission. I discussed the patient's history examination and diagnostic findings with Dr. Martinez, who agrees with the plan of care and accepts admission. Lab Data Lab results reviewed: Yes I reviewed the patient's lab results. Result diagrams: 02/11/21 10:40 02/11/21 10:40 Labs: Lab Results 02/11/21 02/11/21 02/11/21 Range/Units 10:28 10:40 10:40 WBC 12.0 H (4.5-11.0) K/mcL RBC 3.98 (3.59-5.38) M/mcL Hgb 12.6 (11.2-15.7) g/dL Hct 38.1 (34.1-44.9) % POC Hct 42 (36-48) % MCV 95.7 (80.0-100.0) fL MCH 31.7 (26.0-34.0) pg MCHC 33.1 (31.0-36.0) g/dL RDW 11.9 (11.5-14.5) % Plt Count 312 (140-440) K/mcL MPV 10.5 H (7.4-10.4) fL Neut % (Auto) 57.8 (38.0-78.0) % Lymph % (Auto) 25.8 (15.5-49.0) % [place] % (Auto) 4.5 (1.0-12.0) % Eos % (Auto) 11.5 H (0.0-7.0) % Baso % (Auto) 0.4 (0.0-2.0) % Lymph # (Auto) 3.09 (1.50-4.80) K/mcL [place] # (Auto) 0.54 (0.10-0.90) K/mcL Eos # (Auto) 1.38 H (0.00-0.70) K/mcL Baso # (Auto) 0.05 (0.00-0.30) K/mcL Absolute Neutrophils 6.92 (1.80-8.00) K/mcL POC Sodium 134 (133-145) mEq/L Sodium 131 L (133-145) mmol/L POC Potassium 4.5 (3.3-5.1) mEql/L Potassium 4.7 (3.3-5.1) mmol/L POC Chloride 95 L (96-108) mEq/L Chloride 94 L (96-108) mmol/L Carbon Dioxide 24 (22-30) mmol/L POC Total CO2 23 (22-30) mmol/L Anion Gap 13.0 (8.0-16.0) POC BUN 9 (6-20) mg/dL BUN 8 (6-20) mg/dL Creatinine 0.7 (0.6-1.1) mg/dL POC Creatinine 0.6 (0.6-1.2) mg/dL GFR Calculation 95 Glucose 155 H (70-105) mg/dL POC Glucose 155 H (70-105) mg/dL Calcium 9.6 (8.6-10.4) mg/dL POC WB Ioniz Calcium 1.18 (1.16-1.32) mmEq/L Total Bilirubin 0.3 (0.1-1.0) mg/dL AST 11 (<32) U/L ALT < 5 (<40) U/L Alkaline Phosphatase 59 (39-117) U/L Total Protein 7.1 (5.9-8.4) gm/dL Albumin 4.0 (3.2-5.2) gm/dL Globulin 3.1 (2.2-3.7) gm/dL Albumin/Globulin Ratio 1.3 (1.0-2.3) Urine Color Yellow Urine Appearance Cloudy A (Clear) Urine pH 6.0 (5.0-9.0) Ur Specific [place] 1.005 (1.000-1.035) Urine Protein Negative (Negative) mg/dL Urine Glucose (UA) Negative (Negative) mg/dL Urine Ketones Negative (Negative) mg/dL Urine Occult Blood 0.03 A (Negative) mg/dL Urine Nitrate Negative (Negative) Urine Bilirubin Negative (Negative) mg/dL Urine Urobilinogen Negative mg/dL Ur Leukocyte Esterase 500 A (Negative) /uL Urine RBC 11 H (0-3) /hpf Urine WBC > 182 H (0-4) /hpf Ur Squamous Epith Cells 61 H (0-4) /hpf Ur Transition Epith Cell 1 (0-2) /hpf Urine Bacteria 0 (0) /hpf Ur Culture Indicated? No Ethyl Alcohol (<0.010) gm/dL 02/11/21 Range/Units 10:49 WBC (4.5-11.0) K/mcL RBC (3.59-5.38) M/mcL Hgb (11.2-15.7) g/dL Hct (34.1-44.9) % POC Hct (36-48) % MCV (80.0-100.0) fL MCH (26.0-34.0) pg MCHC (31.0-36.0) g/dL RDW (11.5-14.5) % Plt Count (140-440) K/mcL MPV (7.4-10.4) fL Neut % (Auto) (38.0-78.0) % Lymph % (Auto) (15.5-49.0) % [place] % (Auto) (1.0-12.0) % Eos % (Auto) (0.0-7.0) % Baso % (Auto) (0.0-2.0) % Lymph # (Auto) (1.50-4.80) K/mcL [place] # (Auto) (0.10-0.90) K/mcL Eos # (Auto) (0.00-0.70) K/mcL Baso # (Auto) (0.00-0.30) K/mcL Absolute Neutrophils (1.80-8.00) K/mcL POC Sodium (133-145) mEq/L Sodium (133-145) mmol/L POC Potassium (3.3-5.1) mEql/L Potassium (3.3-5.1) mmol/L POC Chloride (96-108) mEq/L Chloride (96-108) mmol/L Carbon Dioxide (22-30) mmol/L POC Total CO2 (22-30) mmol/L Anion Gap (8.0-16.0) POC BUN (6-20) mg/dL BUN (6-20) mg/dL Creatinine (0.6-1.1) mg/dL POC Creatinine (0.6-1.2) mg/dL GFR Calculation Glucose (70-105) mg/dL POC Glucose (70-105) mg/dL Calcium (8.6-10.4) mg/dL POC WB Ioniz Calcium (1.16-1.32) mmEq/L Total Bilirubin (0.1-1.0) mg/dL AST (<32) U/L ALT (<40) U/L Alkaline Phosphatase (39-117) U/L Total Protein (5.9-8.4) gm/dL Albumin (3.2-5.2) gm/dL Globulin (2.2-3.7) gm/dL Albumin/Globulin Ratio (1.0-2.3) Urine Color Urine Appearance (Clear) Urine pH (5.0-9.0) Ur Specific [place] (1.000-1.035) Urine Protein (Negative) mg/dL Urine Glucose (UA) (Negative) mg/dL Urine Ketones (Negative) mg/dL Urine Occult Blood (Negative) mg/dL Urine Nitrate (Negative) Urine Bilirubin (Negative) mg/dL Urine Urobilinogen mg/dL Ur Leukocyte Esterase (Negative) /uL Urine RBC (0-3) /hpf Urine WBC (0-4) /hpf Ur Squamous Epith Cells (0-4) /hpf Ur Transition Epith Cell (0-2) /hpf Urine Bacteria (0) /hpf Ur Culture Indicated? Ethyl Alcohol < 0.010 (<0.010) gm/dL ED POC Tests ED POC Tests: ABDIFATAH - SARS Antigen Negative Discharge Plan Patient/Caregiver Discharge Instructions Pt seen by [facility]/PA only: No Clinical Impression: UTI (urinary tract infection), Acute metabolic encephalopathy, Acute urinary retention Patient Disposition: Xfer As Inpt ([facility]) Condition: Good Follow up with: Unknown,Unknown [Primary Care Provider] - Prescriptions: No Action bupropion HCl 150 MG Tab.Er.24h 300 mg PO DAILY RF: 0 trazodone 100 MG Tablet 100 - 300 mg PO HSP PRN (Reason: Sleep) RF: 0 estradiol 2 MG Tablet 2 mg PO DAILY RF: 0 lorazepam 1 MG Tablet 1 mg PO BIDP PRN (Reason: Anxiety) RF: 0 duloxetine [Cymbalta] 60 MG Capsule.Dr 90 mg PO DAILY RF: 0 carbidopa-levodopa 1 EACH Tab.Rapdis 2 ea PO QID RF: 0 pregabalin [Lyrica] 150 MG Capsule 150 mg PO TID RF: 0 propranolol 10 MG tablet 10 mg PO TID RF: 0 levothyroxine 75 MCG capsule 50 mcg PO QDAY RF: 0 aripiprazole 15 MG tablet 15 mg PO DAILY RF: 0 buspirone 10 MG tablet 10 mg PO TID RF: 0 nitrofurantoin monohyd/m-cryst 100 MG capsule 100 mg PO BID Qty: 14 RF: 0
[2021-02-11 11:05] LABS: POC Blood Urea Nitrogen 9 mg/dL (6-20); POC CO2 23 mmol/L (22-30); POC Calcium, Ionized 1.18 mmEq/L (1.16-1.32); POC Chloride 95 mEq/L (96-108); POC Creatinine 0.6 mg/dL (0.6-1.2); POC Glucose, Random 155 mg/dL (70-105); POC Hematocrit 42 % (36-48); POC Potassium 4.5 mEql/L (3.3-5.1); POC Sodium 134 mEq/L (133-145)
[2021-02-11 11:23] LABS: Basophils # (Auto) 0.05 K/mcL (0.00-0.30); Basophils % (Auto) 0.4 % (0.0-2.0); Eosinophils # (Auto) 1.38 K/mcL (0.00-0.70); Eosinophils % (Auto) 11.5 % (0.0-7.0); Hematocrit 38.1 % (34.1-44.9); Hemoglobin 12.6 g/dL (11.2-15.7); Lymphocytes # (Auto) 3.09 K/mcL (1.50-4.80); Lymphocytes % (Auto) 25.8 % (15.5-49.0); Mean Cell Volume 95.7 fL (80.0-100.0); Mean Corpuscular HGB Conc 33.1 g/dL (31.0-36.0); Mean Platelet Volume 10.5 fL (7.4-10.4); Monocytes # (Auto) 0.54 K/mcL (0.10-0.90); Monocytes % (Auto) 4.5 % (1.0-12.0); Neutrophils % (Auto) 57.8 % (38.0-78.0); Platelet Count 312 K/mcL (140-440); RBC 3.98 M/mcL (3.59-5.38); Red Cell Distribution Width 11.9 % (11.5-14.5)
[2021-02-11 11:37] LABS: ALT/SGPT < 5 U/L (<40); AST/SGOT 11 U/L (<32); Albumin/Globulin Ratio 1.3 (1.0-2.3); Alkaline Phosphatase 59 U/L (39-117); Bilirubin,Total 0.3 mg/dL (0.1-1.0); Blood Urea Nitrogen 8 mg/dL (6-20); Calcium 9.6 mg/dL (8.6-10.4); Carbon Dioxide 24 mmol/L (22-30); Chloride 94 mmol/L (96-108); Globulin 3.1 gm/dL (2.2-3.7); Glomerular Filtration Rate 95; Glucose 155 mg/dL (70-105)
[2021-02-11 11:39] LABS: Alcohol, Blood < 10.0 mg/dL; Alcohol,Blood < 0.010 gm/dL (<0.010)
[2021-02-11 12:34] LABS: Appearance,Urine Cloudy (Clear); Bacteria,Urine 0 /hpf (0); Bilirubin,Urine Negative (Negative); Color,Urine Yellow; Culture Indicated,Urine No; Glucose,Urine (UA) Negative (Negative); Ketones,Urine Negative (Negative); Leukocyte Esterase,Urine 500 /uL (Negative); Nitrate,Urine Negative (Negative); Protein,Urine Negative (Negative); Specific Gravity,Urine 1.005 (1.000-1.035); Urine Blood 0.03 mg/dL (Negative); Urine RBC 11 /hpf (0-3); Urine Squamous Epithelial Cell 61 /hpf (0-4); Urine Transitional Epi Cells 1 /hpf (0-2); Urine WBC > 182 /hpf (0-4); Urobilinogen,Urine Negative
[2021-02-11] MEDS ORDERED: cefTRIAXone 1 GM VIAL IV ONE (13:03)
--- NOTE | 2021-02-11 14:19 | Internal Med History&Physical ---
HPI History of Present Illness Patient information: Note initiated : 02/11/21 at 2:12 pm Service Date, if different from initiated Date: [] Patient: Reba Santiago a 60 y/o F admitted on for weakness. Chief Complaint: [] History of present illness: Ms. Santiago is a 60 year old F Patient sent in by her caregiver because she seems weak and she was recently treated for a urinary tract infection. In the ED she seemed to have some confusion although pretty clear when I saw her. Urinalysis is quite contaminated (many squamous cells) difficult to interpret, will need repeat specimen. Her recent urine culture grew E. coli that was pansensitive and she was given Macrobid she states she took the antibiotic. She had a pelvic exam in the ER which showed some small amount of thick white vaginal discharge, studies were sent for GC and fungal. She had urinary retention and had a Castorena catheter placed with 1 L of urine output thereafter. Labs only showed a very mild leukocytosis of 12,000. Patient drinks alcohol daily she says 3-4 drinks of wine daily. Denies drug use. Review of Systems: Pertinent positives above. Denies headache/fever/chills/nausea/vomiting/chest or abdominal pain/cough/dyspnea/diarrhea. Remaining 10 point review of system reviewed negative PFSH PFSH All Active Problems (Updated 02/11/21 @ 13:56 by Adni Grissom DO) Urosepsis (Acute) Bacteremia due to Escherichia coli (Acute) Anxiety (Acute) Ankle fracture, left (Acute) Alcohol withdrawal (Acute) Alcohol withdrawal delirium (Acute) Hypomagnesemia (Acute) Acute anxiety (Acute) Skin ulcer of left ankle, limited to breakdown of skin (Chronic) Suicidal ideation (Acute) Depression (Acute) UTI (urinary tract infection) (Acute) UTI (urinary tract infection) (Acute) Acute metabolic encephalopathy (Acute) Acute urinary retention (Acute) Primary insomnia (Chronic) Hyperthyroidism (Acute) Peripheral neuropathy (Chronic) Generalized anxiety disorder (Chronic) History of diabetes mellitus (Chronic) Medical History (Updated 02/11/21 @ 13:56 by Andi Grissom DO) Bacteremia due to Escherichia coli Urosepsis Social History (Updated 03/02/17 @ 15:38 by COLIN Tran) alcohol intake frequency: 2+ drinks per day substance use type: marijuana MEDS/ALLERGIES Home Medications and Allergies Home Medications Medication Instructions Recorded Confirmed Type bupropion HCl 300 mg PO DAILY 10/29/17 03/04/19 History carbidopa-levodopa 2 ea PO QID 10/30/17 03/04/19 History duloxetine [Cymbalta] 90 mg PO DAILY 10/30/17 03/04/19 History estradiol 2 mg PO DAILY 10/30/17 03/04/19 History lorazepam 1 mg PO BIDP PRN 10/30/17 03/04/19 History pregabalin [Lyrica] 150 mg PO TID 10/30/17 03/04/19 History trazodone 100 - 300 mg PO HSP PRN 10/30/17 03/04/19 History propranolol 10 mg PO TID 06/05/18 03/04/19 History levothyroxine 50 mcg PO QDAY 11/15/18 03/04/19 History aripiprazole 15 mg PO DAILY 03/04/19 03/04/19 History buspirone 10 mg PO TID 03/04/19 03/04/19 History nitrofurantoin monohyd/m-cryst 100 mg PO BID #14 cap 03/04/19 Rx Allergies Allergy/AdvReac Type Severity Reaction Status Date / Time No Known Drug Allergies Allergy Verified 03/04/19 11:59 EXAM Constitutional Vitals: Temp Pulse Resp BP Pulse Ox 96.7 F L 78 18 114/49 94 02/11/21 10:10 02/11/21 13:52 02/11/21 13:52 02/11/21 13:52 02/11/21 13:52 Exam: General: Alert, Awake, No acute Distress Eyes/N/T: EOMI, PERRL, Head/Neck: neck supple, normocephalic atraumatic CV: RRR, No murmurs, normal s1/s2 Pulm: Clear b/l, no wheezing/rhonchi/rales Abd: soft, nontender, +BS x4 Ext: no clubbing/cyanosis/edema Neuro: Alert, no focal deficits, moves all extremities, CN 2-12 grossly intact, symmetrical strength b/l upper/lower, sensations intact b/l upper/lower. Tremors due to Parkinson's Skin: warm/dry DATA Data Completed and Pending Labs: Labs from last 24 hours 02/11/21 02/11/21 02/11/21 10:49 10:40 10:40 WBC 12.0 H RBC 3.98 Hgb 12.6 Hct 38.1 POC Hct 42 MCV 95.7 MCH 31.7 MCHC 33.1 RDW 11.9 Plt Count 312 MPV 10.5 H Neut % (Auto) 57.8 Lymph % (Auto) 25.8 [place] % (Auto) 4.5 Eos % (Auto) 11.5 H Baso % (Auto) 0.4 Lymph # (Auto) 3.09 [place] # (Auto) 0.54 Eos # (Auto) 1.38 H Baso # (Auto) 0.05 Absolute Neutrophils 6.92 POC Sodium 134 Sodium 131 L POC Potassium 4.5 Potassium 4.7 POC Chloride 95 L Chloride 94 L Carbon Dioxide 24 POC Total CO2 23 Anion Gap 13.0 POC BUN 9 BUN 8 Creatinine 0.7 POC Creatinine 0.6 GFR Calculation 95 Glucose 155 H POC Glucose 155 H Calcium 9.6 POC WB Ioniz Calcium 1.18 Total Bilirubin 0.3 AST 11 ALT < 5 Alkaline Phosphatase 59 Total Protein 7.1 Albumin 4.0 Globulin 3.1 Albumin/Globulin Ratio 1.3 Urine Color Urine Appearance Urine pH Ur Specific [place] Urine Protein Urine Glucose (UA) Urine Ketones Urine Occult Blood Urine Nitrate Urine Bilirubin Urine Urobilinogen Ur Leukocyte Esterase Urine RBC Urine WBC Ur Squamous Epith Cells Ur Transition Epith Cell Urine Bacteria Ur Culture Indicated? Ethyl Alcohol < 0.010 02/11/21 10:28 WBC RBC Hgb Hct POC Hct MCV MCH MCHC RDW Plt Count MPV Neut % (Auto) Lymph % (Auto) [place] % (Auto) Eos % (Auto) Baso % (Auto) Lymph # (Auto) [place] # (Auto) Eos # (Auto) Baso # (Auto) Absolute Neutrophils POC Sodium Sodium POC Potassium Potassium POC Chloride Chloride Carbon Dioxide POC Total CO2 Anion Gap POC BUN BUN Creatinine POC Creatinine GFR Calculation Glucose POC Glucose Calcium POC WB Ioniz Calcium Total Bilirubin AST ALT Alkaline Phosphatase Total Protein Albumin Globulin Albumin/Globulin Ratio Urine Color Yellow Urine Appearance Cloudy A Urine pH 6.0 Ur Specific [place] 1.005 Urine Protein Negative Urine Glucose (UA) Negative Urine Ketones Negative Urine Occult Blood 0.03 A Urine Nitrate Negative Urine Bilirubin Negative Urine Urobilinogen Negative Ur Leukocyte Esterase 500 A Urine RBC 11 H Urine WBC > 182 H Ur Squamous Epith Cells 61 H Ur Transition Epith Cell 1 Urine Bacteria 0 Ur Culture Indicated? No Ethyl Alcohol A/P Narrative A/P Narrative: A: *AMS, mild: metabolic and likely underlying psych *recent UTI pansensitive e.coli treated with macrobid, UA contaminated and will need repeat clean specimen *Volume depletion: *Urinary retention: *Parkinson's: *Depression/anxiety: *Chronic Pain LBP & Neuropathy: *Hypothyroidism: *Macrocytic anemia, chronic: Secondary to above, b12/folate ok, dilutional acute component *hypothyroidism: P: -s/p rocephin in ED, hold further abx until GC and fungal studies return and repeat UA -IVF -CIWA -cont home psych meds -Home medication reconciliation -CM for placement needs -pt/ot -ppx: lovenox Time Spent With Patient Time: Total time spent is greater than 50% in coordination of care (as documented) at patient's floor/unit and/or counseling patient:
[2021-02-11] MEDS ORDERED: metroNIDAZOLE 500 MG TABLET PO ONE (14:27)
[2021-02-11] MEDS ORDERED: metroNIDAZOLE 500 MG TABLET PO SCH (14:30)
--- NOTE | 2021-02-11 14:40 | Discharge Summary ---
Discharge Provider Provider Patient information: Note initiated : 02/11/21 at 2:36 pm Service Date, if different from initiated Date: [] Patient: Reba Santiago a 60 y/o F admitted on for weakness. Chief Complaint: [] Primary care physician: Unknown Unknown Consults: 02/11/21 Consult to Physician [CONS] Stat Comment: Consulting Provider: Masoud Martinez Reason For Exam: Physician to Consult Discharge Meds Discharge Medications Home Medications bupropion HCl 300 mg PO DAILY 10/29/17 [History Confirmed 03/04/19 Last Taken 11/15/18 10:00] carbidopa-levodopa 2 ea PO QID 10/30/17 [History Confirmed 03/04/19 Last Taken 11/15/18 10:00] duloxetine [Cymbalta] 90 mg PO DAILY 10/30/17 [History Confirmed 03/04/19 Last Taken 11/15/18 10:00] estradiol 2 mg PO DAILY 10/30/17 [History Confirmed 03/04/19 Last Taken 11/15/18 10:00] lorazepam 1 mg PO BIDP PRN 10/30/17 [History Confirmed 03/04/19 Last Taken 11/15/18 10:00] pregabalin [Lyrica] 150 mg PO TID 10/30/17 [History Confirmed 03/04/19 Last Taken 11/15/18 10:00] trazodone 100 - 300 mg PO HSP PRN 10/30/17 [History Confirmed 03/04/19 Last Taken 11/15/18 10:00] propranolol 10 mg PO TID 06/05/18 [History Confirmed 03/04/19 Last Taken 11/15/18 10:00] levothyroxine 50 mcg PO QDAY 11/15/18 [History Confirmed 03/04/19 Last Taken 11/15/18 10:00] aripiprazole 15 mg PO DAILY 03/04/19 [History Confirmed 03/04/19 Last Taken Unknown] buspirone 10 mg PO TID 03/04/19 [History Confirmed 03/04/19 Last Taken Unknown] nitrofurantoin monohyd/m-cryst 100 mg PO BID #14 cap 03/04/19 [Rx Last Taken Unknown] COURSE Hospital Course Hospital course: History of present illness: Ms. Santiago is a 60 year old F Patient sent in by her caregiver because she seems weak and she was recently treated for a urinary tract infection. In the ED she seemed to have some confus ion although pretty clear when I saw her. Urinalysis is quite contaminated (many squamous cells) difficult to interpret, will need repeat specimen. Her recent urine culture grew E. coli that was mariscal sensitive and she was given Macrobid she states she took the antibiotic. She had a pelvic exam in the ER which showed some small amount of thick white vaginal discharge, studies were sent for GC and fungal. She had urinary retention and had a Castorena catheter placed with 1 L of urine output thereafter. Labs only showed a very mild leukocytosis of 12,000. Patient drinks alcohol daily she says 3-4 drinks of wine daily. Denies drug use. A: *Bacterial vagniosis/Trichomoniasis *?AMS(mild) vs likely underlying psych vs discomfort from urinary retention / vaginal infection *recent UTI pansensitive e.coli treated with macrobid, UA contaminated and will need repeat clean specimen *Volume depletion: *Urinary retention: likely 2/2 above *Parkinson's: *Depression/anxiety: *Chronic Pain LBP & Neuropathy: *Hypothyroidism: *Macrocytic anemia, chronic: Secondary to above, b12/folate ok, dilutional acute component *hypothyroidism: Time Spent with Patient Time attestation: Total time spent providing and/or coordinating discharge services: EXAM Constitutional Vitals: Temp Pulse Resp BP Pulse Ox 96.7 F L 80 16 100/86 100 02/11/21 10:10 02/11/21 14:31 02/11/21 14:31 02/11/21 14:31 02/11/21 14:31 Discharge Data Data Completed and Pending Labs on day of discharge: Labs from last 24 hours 02/11/21 02/11/21 02/11/21 10:49 10:40 10:40 WBC 12.0 H RBC 3.98 Hgb 12.6 Hct 38.1 POC Hct 42 MCV 95.7 MCH 31.7 MCHC 33.1 RDW 11.9 Plt Count 312 MPV 10.5 H Neut % (Auto) 57.8 Lymph % (Auto) 25.8 [place] % (Auto) 4.5 Eos % (Auto) 11.5 H Baso % (Auto) 0.4 Lymph # (Auto) 3.09 [place] # (Auto) 0.54 Eos # (Auto) 1.38 H Baso # (Auto) 0.05 Absolute Neutrophils 6.92 POC Sodium 134 Sodium 131 L POC Potassium 4.5 Potassium 4.7 POC Chloride 95 L Chloride 94 L Carbon Dioxide 24 POC Total CO2 23 Anion Gap 13.0 POC BUN 9 BUN 8 Creatinine 0.7 POC Creatinine 0.6 GFR Calculation 95 Glucose 155 H POC Glucose 155 H Calcium 9.6 POC WB Ioniz Calcium 1.18 Total Bilirubin 0.3 AST 11 ALT < 5 Alkaline Phosphatase 59 Total Protein 7.1 Albumin 4.0 Globulin 3.1 Albumin/Globulin Ratio 1.3 Urine Color Urine Appearance Urine pH Ur Specific [place] Urine Protein Urine Glucose (UA) Urine Ketones Urine Occult Blood Urine Nitrate Urine Bilirubin Urine Urobilinogen Ur Leukocyte Esterase Urine RBC Urine WBC Ur Squamous Epith Cells Ur Transition Epith Cell Urine Bacteria Ur Culture Indicated? Ethyl Alcohol < 0.010 02/11/21 10:28 WBC RBC Hgb Hct POC Hct MCV MCH MCHC RDW Plt Count MPV Neut % (Auto) Lymph % (Auto) [place] % (Auto) Eos % (Auto) Baso % (Auto) Lymph # (Auto) [place] # (Auto) Eos # (Auto) Baso # (Auto) Absolute Neutrophils POC Sodium Sodium POC Potassium Potassium POC Chloride Chloride Carbon Dioxide POC Total CO2 Anion Gap POC BUN BUN Creatinine POC Creatinine GFR Calculation Glucose POC Glucose Calcium POC WB Ioniz Calcium Total Bilirubin AST ALT Alkaline Phosphatase Total Protein Albumin Globulin Albumin/Globulin Ratio Urine Color Yellow Urine Appearance Cloudy A Urine pH 6.0 Ur Specific [place] 1.005 Urine Protein Negative Urine Glucose (UA) Negative Urine Ketones Negative Urine Occult Blood 0.03 A Urine Nitrate Negative Urine Bilirubin Negative Urine Urobilinogen Negative Ur Leukocyte Esterase 500 A Urine RBC 11 H Urine WBC > 182 H Ur Squamous Epith Cells 61 H Ur Transition Epith Cell 1 Urine Bacteria 0 Ur Culture Indicated? No Ethyl Alcohol Discharge Plan Patient/Caregiver Discharge Instructions Pt seen by [facility]/PA only: No Clinical Impression: UTI (urinary tract infection), Acute metabolic encephalopathy, Acute urinary retention Patient Disposition: Xfer As Inpt ([facility]) Condition: Good Follow up with: Unknown,Unknown [Primary Care Provider] - Prescriptions: No Action bupropion HCl 150 MG Tab.Er.24h 300 mg PO DAILY RF: 0 trazodone 100 MG Tablet 100 - 300 mg PO HSP PRN (Reason: Sleep) RF: 0 estradiol 2 MG Tablet 2 mg PO DAILY RF: 0 lorazepam 1 MG Tablet 1 mg PO BIDP PRN (Reason: Anxiety) RF: 0 duloxetine [Cymbalta] 60 MG Capsule.Dr 90 mg PO DAILY RF: 0 carbidopa-levodopa 1 EACH Tab.Rapdis 2 ea PO QID RF: 0 pregabalin [Lyrica] 150 MG Capsule 150 mg PO TID RF: 0 propranolol 10 MG tablet 10 mg PO TID RF: 0 levothyroxine 75 MCG capsule 50 mcg PO QDAY RF: 0 aripiprazole 15 MG tablet 15 mg PO DAILY RF: 0 buspirone 10 MG tablet 10 mg PO TID RF: 0 nitrofurantoin monohyd/m-cryst 100 MG capsule 100 mg PO BID Qty: 14 RF: 0
[2021-02-11] MEDS ORDERED: ONDANSETRON 4 MG/2 ML VIAL IV PRN (15:37)
[2021-02-11] MEDS ORDERED: IPRATROPIUM/ALBUTEROL 3 ML AMPUL.NEB NEB PRN (15:37)
[2021-02-11] MEDS ORDERED: POTASSIUM CHLORIDE 40 MEQ in DEXTROSE 5% IN WATER 500 ML IV PRN (15:37)
[2021-02-11] MEDS ORDERED: POTASSIUM CHLORIDE 20 MEQ TABLET PO PRN ×2 (15:37)
[2021-02-11] MEDS ORDERED: chlordiazePOXIDE 25 MG CAPSULE PO PRN (15:37)
[2021-02-11] MEDS ORDERED: SENNOSIDES 1 TABLET PO PRN (15:37)
[2021-02-11] MEDS ORDERED: MAGNESIUM SULFATE 2 GM/50 ML BAG IV PRN (15:37)
[2021-02-11] MEDS ORDERED: LORazepam 2 MG/ML VIAL IV PRN (15:37)
[2021-02-11] MEDS ORDERED: POLYETHYLENE GLYCOL 3350 17 GM PACKET PO PRN (15:37)
--- NOTE | 2021-02-11 16:18 | Discharge Summary ---
Discharge Provider Provider Patient information: Note initiated : 02/11/21 at 4:14 pm Service Date, if different from initiated Date: [] Patient: Reba Santiago 60 y/o F admitted on 02/11/21 for weakness. Chief Complaint: [] Date of admission: 02/11/21 15:28 Discharge date: 02/12/21 Primary care physician: Unknown Unknown Consults: 02/11/21 Consult to Physician [CONS] Stat Comment: Consulting Provider: Masoud Martinez Reason For Exam: Physician to Consult Discharge Meds Discharge Medications Home Medications bupropion HCl 150 mg PO DAILY 10/29/17 [History Confirmed 02/11/21 Last Taken 02/11/21] carbidopa-levodopa 2 ea PO QID 10/30/17 [History Confirmed 02/11/21 Last Taken 02/11/21] duloxetine [Cymbalta] 90 mg PO DAILY 10/30/17 [History Confirmed 03/04/19 Last Taken 11/15/18 10:00] estradiol 2 mg PO DAILY 10/30/17 [History Confirmed 02/11/21 Last Taken 02/11/21] lorazepam 1 mg PO BIDP PRN 10/30/17 [History Confirmed 03/04/19 Last Taken 11/15/18 10:00] pregabalin [Lyrica] 150 mg PO TID 10/30/17 [History Confirmed 02/11/21 Last Taken 02/10/21] trazodone 100 mg PO HSP PRN 10/30/17 [History Confirmed 02/11/21 Last Taken 02/10/21] propranolol 10 mg PO TID 06/05/18 [History Confirmed 02/11/21 Last Taken 02/11/21] aripiprazole 15 mg PO DAILY 03/04/19 [History Confirmed 03/04/19 Last Taken Unknown] buspirone 10 mg PO TID 03/04/19 [History Confirmed 02/11/21 Last Taken 02/11/21] baclofen 10 - 20 mg PO Q6H PRN 02/11/21 [History Confirmed 02/11/21 Last Taken Unknown] baclofen 10 mg PO TID 02/11/21 [History Confirmed 02/11/21 Last Taken 02/11/21] bupropion HCl 300 mg PO DAILY 02/11/21 [History Confirmed 02/11/21 Last Taken 02/11/21] fluoxetine 10 mg PO QDAY 02/11/21 [History Confirmed 02/11/21 Last Taken 02/11/21] fluoxetine 20 mg PO QDAY 02/11/21 [History Confirmed 02/11/21 Last Taken 02/11/21] levothyroxine 50 mcg PO QDAY 02/11/21 [History Confirmed 02/11/21 Last Taken 02/11/21] metronidazole 500 mg PO BID #12 tab 02/11/21 [Rx Last Taken Unknown] ziprasidone HCl 20 mg PO BID 02/11/21 [History Confirmed 02/11/21 Last Taken 02/11/21] COURSE Hospital Course Hospital course: History of present illness: Ms. Santiago is a 60 year old F Patient sent in by her caregiver because she seems weak and she was recently treated for a urinary tract infection. In the ED she seemed to have some confusion although pretty clear when I saw her. Urinalysis is quite contaminated (many squamous cells) difficult to interpret, will need repeat specimen. Her recent urine culture grew E. coli that was pansensitive and she was given Macrobid she states she took the antibiotic. She had a pelvic exam in the ER which showed some small amount of thick white vaginal discharge, studies were sent for GC and fungal. She had urinary retention and had a Castorena catheter placed with 1 L of urine output thereafter. Labs only showed a very mild leukocytosis of 12,000. Patient drinks alcohol daily she says 3-4 drinks of wine daily. Denies drug use. 02/12 No overnight no events. Mild leukocytosis resolved. Stable for DC A: *Bacterial vagniosis/Trichomoniasis *??AMS(mild) vs likely underlying psych + urinary retention / vaginal infection *recent UTI pansensitive e.coli treated with macrobid, UA contaminated and will need repeat clean specimen *Volume depletion: *Urinary retention: likely 2/2 vaginal infection/meds/parkinsons *Parkinson's: *Depression/anxiety: *Chronic Pain LBP & Neuropathy: *Hypothyroidism: *Anemia, chronic: *hypothyroidism: Discharge diagnosis: Bacterial vaginosis trichomoniasis, urinary retention, mild confusion Secondary discharge diagnosis: Parkinson's depression anxiety chronic pain with neuropathy hypothyroidism anemia Time Spent with Patient Time attestation: Total time spent providing and/or coordinating discharge services: Time spent: Greater than 30 minutes EXAM Constitutional Vitals: Temp Pulse Resp BP Pulse Ox 98.3 F 75 19 121/100 93 02/11/21 15:37 02/11/21 15:37 02/11/21 15:37 02/11/21 15:01 02/11/21 15:37 Discharge Data Data Completed and Pending Labs on day of discharge: Labs from last 24 hours 02/11/21 02/11/21 02/11/21 10:49 10:40 10:40 WBC RBC Hgb Hct POC Hct MCV MCH MCHC RDW Plt Count MPV Neut % (Auto) Lymph % (Auto) [place] % (Auto) Eos % (Auto) Baso % (Auto) Lymph # (Auto) [place] # (Auto) Eos # (Auto) Baso # (Auto) Absolute Neutrophils POC Sodium Sodium POC Potassium Potassium POC Chloride Chloride Carbon Dioxide POC Total CO2 Anion Gap POC BUN BUN Creatinine POC Creatinine GFR Calculation Glucose POC Glucose Calcium POC WB Ioniz Calcium Magnesium 1.6 Total Bilirubin AST ALT Alkaline Phosphatase Total Protein Albumin Globulin Albumin/Globulin Ratio Procalcitonin Pending Urine Color Urine Appearance Urine pH Ur Specific [place] Urine Protein Urine Glucose (UA) Urine Ketones Urine Occult Blood Urine Nitrate Urine Bilirubin Urine Urobilinogen Ur Leukocyte Esterase Urine RBC Urine WBC Ur Squamous Epith Cells Ur Transition Epith Cell Urine Bacteria Ur Culture Indicated? Ethyl Alcohol < 0.010 02/11/21 02/11/21 02/11/21 10:40 10:40 10:28 WBC 12.0 H RBC 3.98 Hgb 12.6 Hct 38.1 POC Hct 42 MCV 95.7 MCH 31.7 MCHC 33.1 RDW 11.9 Plt Count 312 MPV 10.5 H Neut % (Auto) 57.8 Lymph % (Auto) 25.8 [place] % (Auto) 4.5 Eos % (Auto) 11.5 H Baso % (Auto) 0.4 Lymph # (Auto) 3.09 [place] # (Auto) 0.54 Eos # (Auto) 1.38 H Baso # (Auto) 0.05 Absolute Neutrophils 6.92 POC Sodium 134 Sodium 131 L POC Potassium 4.5 Potassium 4.7 POC Chloride 95 L Chloride 94 L Carbon Dioxide 24 POC Total CO2 23 Anion Gap 13.0 POC BUN 9 BUN 8 Creatinine 0.7 POC Creatinine 0.6 GFR Calculation 95 Glucose 155 H POC Glucose 155 H Calcium 9.6 POC WB Ioniz Calcium 1.18 Magnesium Total Bilirubin 0.3 AST 11 ALT < 5 Alkaline Phosphatase 59 Total Protein 7.1 Albumin 4.0 Globulin 3.1 Albumin/Globulin Ratio 1.3 Procalcitonin Urine Color Yellow Urine Appearance Cloudy A Urine pH 6.0 Ur Specific [place] 1.005 Urine Protein Negative Urine Glucose (UA) Negative Urine Ketones Negative Urine Occult Blood 0.03 A Urine Nitrate Negative Urine Bilirubin Negative Urine Urobilinogen Negative Ur Leukocyte Esterase 500 A Urine RBC 11 H Urine WBC > 182 H Ur Squamous Epith Cells 61 H Ur Transition Epith Cell 1 Urine Bacteria 0 Ur Culture Indicated? No Ethyl Alcohol Discharge Plan Patient/Caregiver Discharge Instructions Activity: increase activity as tolerated Diet: Regular Diet Activity Restrictions/Additional Instructions: -Follow-up with PCP in 3 to 7 days -Follow-up with PCP or psychiatry regarding medications contributing to urinary retention. -DC Castorena prior to discharge and monitor for a period of time, if need to reinsert then pt will follow-up with urology. Prescriptions: New metronidazole 500 mg tablet 500 mg PO BID Qty: 12 RF: 0 Continued bupropion HCl 150 MG tablet extended release 24 hr 150 mg PO DAILY RF: 0 trazodone 100 MG tablet 100 mg PO HSP PRN (Reason: Sleep) RF: 0 estradiol 2 MG tablet 2 mg PO DAILY RF: 0 lorazepam 1 MG tablet 1 mg PO BIDP PRN (Reason: Anxiety) RF: 0 duloxetine [Cymbalta] 60 MG capsule,delayed release(DR/EC) 90 mg PO DAILY RF: 0 carbidopa-levodopa 1 EACH tablet,disintegrating 2 ea PO QID RF: 0 pregabalin [Lyrica] 150 MG capsule 150 mg PO TID RF: 0 propranolol 10 MG tablet 10 mg PO TID RF: 0 aripiprazole 15 MG tablet 15 mg PO DAILY RF: 0 buspirone 10 MG tablet 10 mg PO TID RF: 0 Discontinued nitrofurantoin monohyd/m-cryst 100 MG capsule 100 mg PO BID Qty: 14 RF: 0 No Action baclofen 20 mg Tablet 10 mg PO TID RF: 0 baclofen 20 mg Tablet 10 - 20 mg PO Q6H PRN (Reason: Muscle Spasm) RF: 0 ziprasidone HCl 20 mg Capsule 20 mg PO BID RF: 0 levothyroxine 50 mcg Tablet 50 mcg PO QDAY RF: 0 fluoxetine 10 mg Capsule 10 mg PO QDAY RF: 0 fluoxetine 20 mg Capsule 20 mg PO QDAY RF: 0 bupropion HCl 300 mg Tablet Extended Release 24 Hr 300 mg PO DAILY RF: 0 Follow Up Plan Follow up with: Unknown,Unknown [Primary Care Provider] - Patient Disposition: Home, Self-Care Prognosis: Good Overall status at discharge: patient is progressing back to baseline Discharge Orders: Discharge Order (Routine); Ordered 02/12/21 Ordered By: Masoud Martinez
[2021-02-11] MEDS: 0.9 % SODIUM CHLORIDE 1,000 ML IV SCH ×2 (17:16→21:47)
[2021-02-11] MEDS: THIAMINE 100 MG TABLET PO SCH (17:16)
[2021-02-11] MEDS: FOLIC ACID 1 MG TABLET PO SCH (17:19)
[2021-02-11] MEDS ORDERED: BACLOFEN 20 MG PO PRN (17:35)
[2021-02-11] MEDS ORDERED: traZODone HCL 100 MG TABLET PO PRN (17:35)
[2021-02-11 17:36] LABS: Appearance,Urine CLEAR (Clear); Bilirubin,Urine Negative (Negative); Color,Urine YELLOW; Culture Indicated,Urine yes; Glucose,Urine (UA) Negative (Negative); Ketones,Urine Negative (Negative); Leukocyte Esterase,Urine 500 /uL (Negative); Nitrate,Urine Negative (Negative); Protein,Urine 30 mg/dL (Negative); Specific Gravity,Urine 1.004 (1.000-1.035); Urine RBC 1 /hpf (0-3); Urine Squamous Epithelial Cell < 1 /hpf (0-4); Urine WBC 34 /hpf (0-4); Urobilinogen,Urine Negative
[2021-02-11] MEDS: ACETAMINOPHEN 325 MG TABLET PO PRN (18:53)
[2021-02-11] MEDS: PROPRANOLOL 10 MG TABLET PO SCH (20:01)
[2021-02-11] MEDS: metroNIDAZOLE 500 MG TABLET PO SCH (20:01)
[2021-02-11] MEDS: busPIRone 5 MG TABLET PO SCH (20:01)
[2021-02-11] MEDS: BACLOFEN 10 MG TABLET PO SCH (20:01)
[2021-02-11] MEDS: DOCUSATE SODIUM 100 MG CAPSULE PO SCH (20:01)
[2021-02-11] MEDS: PREGABALIN 150 MG CAPSULE PO SCH (20:01)
[2021-02-11] MEDS: CARBIDOPA/LEVODOPA 25/100 TABLET PO SCH (20:01)
[2021-02-11] MEDS: ZIPRASIDONE 20 MG CAPSULE PO SCH (20:03)
[2021-02-11] MEDS: 0.9 % SODIUM CHLORIDE 10 ML SYRINGE IV SCH ×2 (20:03)
[2021-02-12] MEDS: ACETAMINOPHEN 325 MG TABLET PO PRN ×3 (02:33→17:08)
[2021-02-12] MEDS: 0.9 % SODIUM CHLORIDE 10 ML SYRINGE IV SCH ×4 (05:24→13:13)
[2021-02-12 06:41] LABS: Hemoglobin 10.7 g/dL (11.2-15.7); Mean Cell Volume 95.2 fL (80.0-100.0); Mean Corpuscular HGB Conc 33.4 g/dL (31.0-36.0); Mean Platelet Volume 10.5 fL (7.4-10.4); Platelet Count 279 K/mcL (140-440); RBC 3.36 M/mcL (3.59-5.38); WBC 7.3 K/mcL (4.5-11.0)
[2021-02-12 07:15] LABS: ALT/SGPT < 5 U/L (<40); AST/SGOT 7 U/L (<32); Albumin/Globulin Ratio 1.2 (1.0-2.3); Alkaline Phosphatase 48 U/L (39-117); Bilirubin,Direct < 0.2 mg/dL (0-0.3); Bilirubin,Total 0.2 mg/dL (0.1-1.0); Blood Urea Nitrogen 6 mg/dL (6-20); Carbon Dioxide 22 mmol/L (22-30); Chloride 108 mmol/L (96-108); Globulin 2.5 gm/dL (2.2-3.7); Glomerular Filtration Rate 100; Glucose 83 mg/dL (70-105); Lactate Dehydrogenase 159 U/L (135-225); Triglycerides 128 mg/dL (<150); Uric Acid 3.4 mg/dL (2.5-8.0)
[2021-02-12] MEDS ORDERED: LEVOTHYROXINE 50 MCG TABLET PO SCH (07:30)
[2021-02-12] MEDS ORDERED: MAGNESIUM SULFATE 2 GM/50 ML BAG IV ONE (08:00)
[2021-02-12 08:30] LABS: Eosinophils % (Manual) 5 % (0-7); Lymphocytes % 47 % (15-49); Monocytes % (Manual) 4 % (1-12); Myelocytes % 1 %; Platelet Estimate NORMAL (Normal); RBC Morphology NORMAL (Normal); Segmented Neutrophils % 43 % (38-78)
[2021-02-12] MEDS: FOLIC ACID 1 MG TABLET PO SCH (08:45)
[2021-02-12] MEDS: busPIRone 5 MG TABLET PO SCH ×2 (08:46→14:51)
[2021-02-12] MEDS: PROPRANOLOL 10 MG TABLET PO SCH ×2 (08:46→14:51)
[2021-02-12] MEDS: metroNIDAZOLE 500 MG TABLET PO SCH ×2 (08:47→18:16)
[2021-02-12] MEDS: DOCUSATE SODIUM 100 MG CAPSULE PO SCH (08:47)
[2021-02-12] MEDS: PREGABALIN 150 MG CAPSULE PO SCH ×2 (08:47→14:51)
[2021-02-12] MEDS: CARBIDOPA/LEVODOPA 25/100 TABLET PO SCH ×3 (08:47→16:44)
[2021-02-12] MEDS: BACLOFEN 10 MG TABLET PO SCH ×2 (08:47→14:51)
[2021-02-12] MEDS: THIAMINE 100 MG TABLET PO SCH (08:47)
[2021-02-12] MEDS: ZIPRASIDONE 20 MG CAPSULE PO SCH (08:48)
[2021-02-12] MEDS ORDERED: buPROPion 150 MG TAB.XL.24H PO SCH (09:00)
[2021-02-12] MEDS ORDERED: MULTIVIT,THER IRON,CA,FA & MIN 1 TABLET PO SCH (09:00)
[2021-02-12] MEDS ORDERED: FLUoxetine HCL 10 MG CAPSULE PO SCH (09:00)
[2021-02-12] MEDS ORDERED: buPROPion 300 MG TAB.XL.24H PO SCH (09:00)
[2021-02-12] MEDS ORDERED: ENOXAPARIN 40 MG/0.4 ML SYRINGE SQ SCH (09:00)
[2021-02-12] MEDS ORDERED: FLUoxetine HCL 20 MG CAPSULE PO SCH (09:00)
[2021-02-13] MEDS ORDERED: FLU VACC QS2021-22(6MOS UP)/PF 60 MCG/0.5 ML SYRINGE IM ONE (10:00)
== END 2021-02-12 20:15 | disposition home health service (06) ==
LOC: MEDSUR 10:09 → ED 10:09 → MEDSUR 15:31
PROVIDERS: ADMIT Internal Medicine; ATTEND Internal Medicine

== ENCOUNTER 2021-10-31 08:41 | Inpatient (IN) ==
--- NOTE | 2021-10-31 08:58 | Emergency Department Note ---
HPI General Chief complaint: Weakness Stated complaint: weakness Time Seen by Provider: 10/31/21 08:58 Source: EMS Mode of arrival: EMS History of Present Illness HPI Narrative: Narrative: Patient is a 60 yo F with a complex medical history who presents to the emergency department due to weakness and AMS. Patient endorses a fall last night and being on the ground for a prolonged period of time. She states that she was in pain this morning. It was recommended that she take something for pain. She took some medication, but doesn't remember what. She took both pain medication and something to sleep. She states that she feels generally weak, but worse in bilateral lower extremities. She states that this is not new. She denies and other concerns. Related Data Home Medications Medication Instructions Recorded Confirmed bupropion HCl 150 mg 24 hr tablet, 150 mg PO DAILY 10/29/17 10/31/21 extended release estradiol 2 mg tablet 2 mg PO DAILY 10/30/17 10/31/21 trazodone 100 mg tablet 100 mg PO HSP PRN Sleep 10/30/17 10/31/21 propranolol 10 mg tablet 10 mg PO TID 06/05/18 10/31/21 baclofen 20 mg tablet 20 mg PO Q6H PRN Muscle Spasm 02/11/21 10/31/21 bupropion HCl 300 mg 24 hr tablet, 300 mg PO DAILY 02/11/21 10/31/21 extended release levothyroxine 50 mcg tablet 50 mcg PO QDAY 02/11/21 10/31/21 ziprasidone HCl 20 mg capsule 20 mg PO BID 02/11/21 10/31/21 ascorbic acid (vitamin C) 500 mg 500 mg PO BID 10/31/21 10/31/21 tablet buspirone 15 mg tablet 15 mg PO TID 10/31/21 10/31/21 carbidopa 25 mg-levodopa 100 mg 2 tab PO QID 10/31/21 10/31/21 tablet entacapone 200 mg tablet 200 mg PO QID 10/31/21 10/31/21 lorazepam 1 mg tablet 1 mg PO DAILY 10/31/21 10/31/21 ondansetron 8 mg disintegrating 8 mg PO Q8HP PRN Nausea 10/31/21 10/31/21 tablet pregabalin 300 mg capsule 300 mg PO BID 10/31/21 10/31/21 tramadol 50 mg tablet 1 - 2 mg PO Q4H PRN Pain 10/31/21 10/31/21 Previous Rx's Medication Instructions Recorded methenamine hippurate 1 gram tablet 1 g PO BID #60 tabs 08/23/21 miscellaneous medical supply #12 ea 08/23/21 Allergies Allergy/AdvReac Type Severity Reaction Status Date / Time No Known Drug Allergies Allergy Verified 10/31/21 08:54 Review of Systems ROS ROS Narrative: Narrative: Constitutional: Reports weakness (Generalized); Denies fever Eyes: Denies eye pain or vision change ENT ED: Denies throat pain, hearing loss or rhinorrhea Cardiovascular: Denies chest pain, dyspnea on exertion, orthopnea or edema Respiratory: Denies shortness of breath or cough Gastrointestinal: Reports abdominal pain; Denies nausea, vomiting, diarrhea, constipation, hematochezia or melena Musculoskeletal: Reports myalgia; Denies back pain Integumentary: Denies rash or lesions Neurological: Reports confusion; Denies headache, numbness, abnormal gait or dizziness Psychiatric: Denies anxiety, suicidal thoughts or homicidal thoughts Endocrine: Denies fatigue or polyuria Hematological/Lymphatic: Denies easy bleeding or easy bruising PFSH Narrative Patient History Narrative: Narrative: Medical/Surgical/Family History All Active Problems (Updated 11/02/21 @ 11:23 by Dilan Jin MD) Anemia, normocytic normochromic (Acute) Hyponatremia (Acute) Hypokalemia (Acute) Anxiety with depression (Acute) T2DM (type 2 diabetes mellitus) (Acute) Hypothyroidism (Acute) Rhabdomyolysis (Acute) Urosepsis (Chronic) Bacteremia due to Escherichia coli (Chronic) History of diabetes mellitus (Chronic) Generalized anxiety disorder (Chronic) Drug-induced psychotic disorder (Chronic) Peripheral neuropathy (Chronic) Hyperthyroidism (Chronic) Primary insomnia (Chronic) Anxiety (Chronic) Ankle fracture, left (Chronic) Alcohol withdrawal (Chronic) Alcohol withdrawal delirium (Chronic) Hypomagnesemia (Chronic) Acute anxiety (Chronic) Skin ulcer of left ankle, limited to breakdown of skin (Chronic) Suicidal ideation (Chronic) Depression (Chronic) UTI (urinary tract infection) (Chronic) Acute metabolic encephalopathy (Chronic) Acute urinary retention (Chronic) Multiple falls (Chronic) Back pain (Chronic) Dysuria (Chronic) Cavernous hemangioma (Chronic) Bacterial vaginosis (Chronic) Hallucinations (Chronic) Pain in left shoulder (Chronic) Cognitive disorder (Chronic) Unspecified psychosis (Chronic) Marijuana use (Chronic) Type 2 diabetes mellitus with hyperglycemia (Chronic) Other low back pain (Chronic) Systolic murmur (Chronic) Major depression (Chronic) Insomnia (Chronic) Vitamin D deficiency (Chronic) Osteopenia (Chronic) Parkinsonism (Chronic) Instability of joint of toe of left foot (Chronic) Staggering gait (Chronic) Chronic pain (Chronic) Alteration in comfort associated with pain (Chronic) Left hip pain (Chronic) Lumbar radiculopathy (Chronic) Sciatica (Chronic) Pain in right toe(s) (Chronic) Hallux valgus (Chronic) Urinary retention with incomplete bladder emptying (Acute) Urethral pain (Acute) Recurrent urinary tract infection (Acute) Sepsis (Acute) UTI (urinary tract infection) (Acute) Acidosis, lactic (Acute) Acute back pain with sciatica (Acute) Medical History Acute anxiety Acute metabolic encephalopathy Acute urinary retention Alcohol withdrawal Alcohol withdrawal delirium Alteration in comfort associated with pain Ankle fracture, left Anxiety Back pain Bacteremia due to Escherichia coli Bacterial vaginosis Cavernous hemangioma Chronic pain Cognitive disorder Depression Drug-induced psychotic disorder Dysuria Generalized anxiety disorder Hallucinations Hallux valgus History of diabetes mellitus Hyperthyroidism Hypomagnesemia Insomnia Instability of joint of toe of left foot Left hip pain Lumbar radiculopathy Major depression Marijuana use Multiple falls Osteopenia Other low back pain Pain in left shoulder Pain in right toe(s) Parkinsonism Peripheral neuropathy Primary insomnia Sciatica Skin ulcer of left ankle, limited to breakdown of skin See wound care orders. Conservative treatment recommended. F/U at wound center after discharge. Staggering gait Suicidal ideation Systolic murmur Type 2 diabetes mellitus with hyperglycemia Unspecified psychosis Urosepsis UTI (urinary tract infection) Vitamin D deficiency Surgical History Amputation of left great toe Amputation of right great toe History of hysterectomy Family History Other No pertinent family history Social History Smoking Status: Never smoker Alcohol Intake Frequency: 2+ drinks per day Substance Use: marijuana Exam Narrative Narrative: Narrative: General General appearance: Present alert; Absent anxious or appears intoxicated Head Head: Present atraumatic and normocephalic Eye Eye: Present PERRL and EOMI; Absent scleral icterus or nystagmus ENT ENT: Present mucous membranes moist; Absent nasal congestion Neck Neck: Present full ROM; Absent tenderness Chest Chest: Present normal inspection and symmetric chest wall rise; Absent tenderness Respiratory Respiratory: Present normal lung sounds bilaterally; Absent respiratory distress or accessory muscle use Cardiovascular Cardiovascular: Present regular rate, normal rhythm and normal heart sounds Adbominal Abdominal: Present soft, tenderness and normal bowel sounds; Absent distention Extremities Extremities: Present normal inspection and full ROM; Absent tenderness Back Back: Present normal inspection and full ROM; Absent tenderness Neurological Neurological: Present alert, CN II-XII intact, normal gait and reflexes normal; Absent oriented X3 or motor sensory deficit Psychiatric Psychiatric: Present normal affect and normal mood Skin Skin: Present cool, dry and other (Multiple bruises on all extremities) Course Vital Signs Vital signs: Vital Signs Temperature 96.8 F L 10/31/21 08:48 Pulse Rate 102 H 10/31/21 08:48 Respiratory Rate 18 10/31/21 08:48 Blood Pressure 105/78 10/31/21 08:48 Pulse Oximetry (%) 99 10/31/21 08:48 Oxygen Delivery Method 10/31/21 08:48 Temperature 96.5 F L 11/03/21 19:42 Pulse Rate 73 11/03/21 19:42 Respiratory Rate 20 11/03/21 19:42 Blood Pressure 115/99 11/03/21 19:42 Pulse Oximetry (%) 98 11/03/21 19:42 Oxygen Delivery Method 11/03/21 19:42 Oxygen Flow Rate (L/min) 2 11/03/21 19:42 [facility] Narrative Medical decision making narrative: Narrative: Patient is a 60 yo F presenting due to weakness and AMS. Differential include UTI, colitis, gastroenteritis, other intraabdominal infection, SBO, large stool burden, and rhabdomyolisis. Patient is found to have a very elevated CK at almost 20,000. She also is found to have evidence of a UTI. WBC is elevated. Patient has received antibiotics and I have spoken to Dr. iJn. He has agreed to see and evaluate patient for admission. Lab Data Result diagrams: 11/03/21 05:40 11/03/21 05:40 Labs: Lab Results 10/31/21 10/31/21 10/31/21 Range/Units 09:40 09:40 09:40 WBC 18.4 H (4.5-11.0) K/mcL RBC 3.95 (3.59-5.38) M/mcL Hgb 11.7 (11.2-15.7) g/dL Hct 36.6 (34.1-44.9) % POC Hct (36-48) MCV 92.7 (80.0-100.0) fL MCH 29.6 (26.0-34.0) pg MCHC 32.0 (31.0-36.0) g/dL RDW 15.6 H (11.5-14.5) % Plt Count 558 H (140-440) K/mcL MPV 10.8 H (7.4-10.4) fL Immature Gran % (Auto) 0.8 H (0.0-0.5) % Neut % (Auto) 85.4 H (38.0-78.0) % Lymph % (Auto) 9.3 L (15.5-49.0) % [place] % (Auto) 4.3 (1.0-12.0) % Eos % (Auto) 0.1 (0.0-7.0) % Baso % (Auto) 0.1 (0.0-2.0) % Lymph # (Auto) 1.71 (1.50-4.80) K/mcL [place] # (Auto) 0.79 (0.10-0.90) K/mcL Eos # (Auto) 0.02 (0.00-0.70) K/mcL Baso # (Auto) 0.02 (0.00-0.30) K/mcL Immature Gran # 0.15 H (0.00-0.05) K/mcl Absolute Neutrophils 15.86 H (1.80-8.00) K/mcL POC Sodium (133-145) POC Potassium (3.3-5.1) POC Chloride (96-108) POC Total CO2 (22-30) POC BUN (6-20) POC Creatinine (0.6-1.2) POC Glucose (70-105) POC WB Ioniz Calcium (1.16-1.32) Total Bilirubin 0.5 (0.1-1.0) mg/dL Direct Bilirubin < 0.2 (0-0.3) mg/dL AST 66 H (<32) U/L ALT 22 (<40) U/L Alkaline Phosphatase 71 (39-117) U/L Total Creatine Kinase 64550 H (24-170) U/L Total Protein 6.9 (5.9-8.4) gm/dL Albumin 3.7 (3.2-5.2) gm/dL Globulin 3.2 (2.2-3.7) gm/dL Lipase 11 (7-60) U/L Procalcitonin (<0.10) ng/mL Urine Color Urine Appearance (Clear) Urine pH (5.0-9.0) Ur Specific [place] (1.000-1.035) Urine Protein (Negative) mg/dL Urine Glucose (UA) (Negative) mg/dL Urine Ketones (Negative) mg/dL Urine Occult Blood (Negative) wero/mcL Urine Nitrate (Negative) Urine Bilirubin (Negative) mg/dL Urine Urobilinogen mg/dL Ur Leukocyte Esterase (Negative) /uL Urine RBC (0-3) /hpf Urine WBC (0-4) /hpf Ur Squamous Epith Cells (0-4) /hpf Urine Bacteria (0) /hpf Hyaline Casts (0-2) /lph RBC Casts (0-0) /lph Urine Mucus (None) /hpf Urine Yeast (Budding) (None) /hpf Ur Culture Indicated? Urine Opiates Screen Ur Opiates Confirm Ur Oxycodone Screen U Oxycod/Oxymor Confirm Urine Methadone Screen Ur Methadone Confirm Ur Barbiturates Screen Ur Barbiturate Confirm Ur Phencyclidine Scrn Urine PCP Confirm Ur Amphetamines Screen U Amphetamines Confirm U Benzodiazepines Scrn Ur Benzodiazepine, Qnt Urine Cocaine Screen Urine Cocaine Confirm U Cannabinoids Confirm U Marijuana (THC) Screen Ethyl Alcohol mg/dL mg/dL Ethyl Alcohol g/dL (<0.010) gm/dL 10/31/21 10/31/21 10/31/21 Range/Units 09:40 10:09 10:18 WBC (4.5-11.0) K/mcL RBC (3.59-5.38) M/mcL Hgb (11.2-15.7) g/dL Hct (34.1-44.9) % POC Hct 42.0 (36-48) MCV (80.0-100.0) fL MCH (26.0-34.0) pg MCHC (31.0-36.0) g/dL RDW (11.5-14.5) % Plt Count (140-440) K/mcL MPV (7.4-10.4) fL Immature Gran % (Auto) (0.0-0.5) % Neut % (Auto) (38.0-78.0) % Lymph % (Auto) (15.5-49.0) % [place] % (Auto) (1.0-12.0) % Eos % (Auto) (0.0-7.0) % Baso % (Auto) (0.0-2.0) % Lymph # (Auto) (1.50-4.80) K/mcL [place] # (Auto) (0.10-0.90) K/mcL Eos # (Auto) (0.00-0.70) K/mcL Baso # (Auto) (0.00-0.30) K/mcL Immature Gran # (0.00-0.05) K/mcl Absolute Neutrophils (1.80-8.00) K/mcL POC Sodium 132 L (133-145) POC Potassium 3.1 L (3.3-5.1) POC Chloride 95 L (96-108) POC Total CO2 20.0 L (22-30) POC BUN 5 L (6-20) POC Creatinine 0.6 (0.6-1.2) POC Glucose 108 H (70-105) POC WB Ioniz Calcium 1.01 L (1.16-1.32) Total Bilirubin (0.1-1.0) mg/dL Direct Bilirubin (0-0.3) mg/dL AST (<32) U/L ALT (<40) U/L Alkaline Phosphatase (39-117) U/L Total Creatine Kinase (24-170) U/L Total Protein (5.9-8.4) gm/dL Albumin (3.2-5.2) gm/dL Globulin (2.2-3.7) gm/dL Lipase (7-60) U/L Procalcitonin 0.36 H (<0.10) ng/mL Urine Color Urine Appearance (Clear) Urine pH (5.0-9.0) Ur Specific [place] (1.000-1.035) Urine Protein (Negative) mg/dL Urine Glucose (UA) (Negative) mg/dL Urine Ketones (Negative) mg/dL Urine Occult Blood (Negative) wero/mcL Urine Nitrate (Negative) Urine Bilirubin (Negative) mg/dL Urine Urobilinogen mg/dL Ur Leukocyte Esterase (Negative) /uL Urine RBC (0-3) /hpf Urine WBC (0-4) /hpf Ur Squamous Epith Cells (0-4) /hpf Urine Bacteria (0) /hpf Hyaline Casts (0-2) /lph RBC Casts (0-0) /lph Urine Mucus (None) /hpf Urine Yeast (Budding) (None) /hpf Ur Culture Indicated? Urine Opiates Screen Ur Opiates Confirm Ur Oxycodone Screen U Oxycod/Oxymor Confirm Urine Methadone Screen Ur Methadone Confirm Ur Barbiturates Screen Ur Barbiturate Confirm Ur Phencyclidine Scrn Urine PCP Confirm Ur Amphetamines Screen U Amphetamines Confirm U Benzodiazepines Scrn Ur Benzodiazepine, Qnt Urine Cocaine Screen Urine Cocaine Confirm U Cannabinoids Confirm U Marijuana (THC) Screen Ethyl Alcohol mg/dL < 10.0 mg/dL Ethyl Alcohol g/dL < 0.010 (<0.010) gm/dL 10/31/21 10/31/21 Range/Units 12:33 12:33 WBC (4.5-11.0) K/mcL RBC (3.59-5.38) M/mcL Hgb (11.2-15.7) g/dL Hct (34.1-44.9) % POC Hct (36-48) MCV (80.0-100.0) fL MCH (26.0-34.0) pg MCHC (31.0-36.0) g/dL RDW (11.5-14.5) % Plt Count (140-440) K/mcL MPV (7.4-10.4) fL Immature Gran % (Auto) (0.0-0.5) % Neut % (Auto) (38.0-78.0) % Lymph % (Auto) (15.5-49.0) % [place] % (Auto) (1.0-12.0) % Eos % (Auto) (0.0-7.0) % Baso % (Auto) (0.0-2.0) % Lymph # (Auto) (1.50-4.80) K/mcL [place] # (Auto) (0.10-0.90) K/mcL Eos # (Auto) (0.00-0.70) K/mcL Baso # (Auto) (0.00-0.30) K/mcL Immature Gran # (0.00-0.05) K/mcl Absolute Neutrophils (1.80-8.00) K/mcL POC Sodium (133-145) POC Potassium (3.3-5.1) POC Chloride (96-108) POC Total CO2 (22-30) POC BUN (6-20) POC Creatinine (0.6-1.2) POC Glucose (70-105) POC WB Ioniz Calcium (1.16-1.32) Total Bilirubin (0.1-1.0) mg/dL Direct Bilirubin (0-0.3) mg/dL AST (<32) U/L ALT (<40) U/L Alkaline Phosphatase (39-117) U/L Total Creatine Kinase (24-170) U/L Total Protein (5.9-8.4) gm/dL Albumin (3.2-5.2) gm/dL Globulin (2.2-3.7) gm/dL Lipase (7-60) U/L Procalcitonin (<0.10) ng/mL Urine Color Brown Urine Appearance Turbid A (Clear) Urine pH 5.5 (5.0-9.0) Ur Specific [place] 1.025 (1.000-1.035) Urine Protein 100 mg/dl A (Negative) mg/dL Urine Glucose (UA) Negative (Negative) mg/dL Urine Ketones 40 mg/dl A (Negative) mg/dL Urine Occult Blood Large A (Negative) wero/mcL Urine Nitrate Negative (Negative) Urine Bilirubin Small A (Negative) mg/dL Urine Urobilinogen Normal mg/dL Ur Leukocyte Esterase Small A (Negative) /uL Urine RBC 82 H (0-3) /hpf Urine WBC > 182 H (0-4) /hpf Ur Squamous Epith Cells 3 (0-4) /hpf Urine Bacteria None (0) /hpf Hyaline Casts 7 H (0-2) /lph RBC Casts 5 H (0-0) /lph Urine Mucus Few A (None) /hpf Urine Yeast (Budding) Many A (None) /hpf Ur Culture Indicated? yes Urine Opiates Screen None detected Ur Opiates Confirm TNP Ur Oxycodone Screen None detected U Oxycod/Oxymor Confirm TNP Urine Methadone Screen None detected Ur Methadone Confirm TNP Ur Barbiturates Screen None detected Ur Barbiturate Confirm TNP Ur Phencyclidine Scrn None detected Urine PCP Confirm TNP Ur Amphetamines Screen None detected U Amphetamines Confirm TNP U Benzodiazepines Scrn None detected Ur Benzodiazepine, Qnt TNP Urine Cocaine Screen None detected Urine Cocaine Confirm TNP U Cannabinoids Confirm TNP U Marijuana (THC) Screen None detected Ethyl Alcohol mg/dL mg/dL Ethyl Alcohol g/dL (<0.010) gm/dL EKG Data EKG #1: EKG attestation: Yes I reviewed and interpreted this EKG. EKG results narrative: Normal sinus rhythm with a rate of 87, normal axis, CT 236, QRS of 88, QTc 541, T wave flattening in leads III, aVL, and aVF, T wave inversions in lead V4, V5, and V6, and absence of ST elevation or depression Discharge Plan Patient/Caregiver Discharge Instructions Pt seen by LINUX SYSTEMS ANALYST/PA only: No Patient Disposition: Xfer As Inpt ([facility]) Condition: Discharge Date/Time: 10/31/21 14:58 Discharge Comment: pt transported to room 111
[2021-10-31] MEDS ORDERED: LACTATED RINGERS 1,000 ML IV ONE (09:56)
[2021-10-31 10:19] LABS: POC Calcium, Ionized 1.01 (1.16-1.32); POC Creatinine 0.6 (0.6-1.2); POC Potassium 3.1 (3.3-5.1)
[2021-10-31] MEDS ORDERED: VANCOMYCIN 1,000 MG in 0.9 % SODIUM CHLORIDE 250 ML IV ONE (10:34)
[2021-10-31] MEDS ORDERED: PIPERACILLIN SODIUM/TAZOBACTAM 3.375 GM in DEXTROSE 5% IN WATER 50 ML IV ONE (10:34)
[2021-10-31 10:39] LABS: Basophils # (Auto) 0.02 K/mcL (0.00-0.30); Basophils % (Auto) 0.1 % (0.0-2.0); Eosinophils # (Auto) 0.02 K/mcL (0.00-0.70); Eosinophils % (Auto) 0.1 % (0.0-7.0); Hematocrit 36.6 % (34.1-44.9); Hemoglobin 11.7 g/dL (11.2-15.7); Lymphocytes # (Auto) 1.71 K/mcL (1.50-4.80); Lymphocytes % (Auto) 9.3 % (15.5-49.0); Mean Cell Volume 92.7 fL (80.0-100.0); Mean Platelet Volume 10.8 fL (7.4-10.4); Monocytes # (Auto) 0.79 K/mcL (0.10-0.90); Monocytes % (Auto) 4.3 % (1.0-12.0); Neutrophils % (Auto) 85.4 % (38.0-78.0); Platelet Count 558 K/mcL (140-440); RBC 3.95 M/mcL (3.59-5.38); Red Cell Distribution Width 15.6 % (11.5-14.5); WBC 18.4 K/mcL (4.5-11.0)
[2021-10-31 11:09] LABS: Alcohol, Blood < 10.0 mg/dL; Alcohol,Blood < 0.010 gm/dL (<0.010)
[2021-10-31 11:13] LABS: ALT/SGPT 22 U/L (<40); AST/SGOT 66 U/L (<32); Albumin 3.7 gm/dL (3.2-5.2); Alkaline Phosphatase 71 U/L (39-117); Bilirubin,Direct < 0.2 mg/dL (0-0.3); Bilirubin,Total 0.5 mg/dL (0.1-1.0); Globulin 3.2 gm/dL (2.2-3.7)
[2021-10-31] MEDS ORDERED: POTASSIUM CHLORIDE 20 MEQ in DEXTROSE 5% IN WATER 250 ML IV ONE (11:19)
[2021-10-31] MEDS ORDERED: MAGNESIUM SULFATE 8.12 MEQ in DEXTROSE 5% IN WATER 50 ML IV ONE (11:19)
--- NOTE | 2021-10-31 11:23 | Cat Scan Report ---
History: Abdominal pain, tenderness, weakness TECHNIQUE: Following administration of intravenous nonionic contrast the patient was imaged during the late arterial and early venous phase scanning from above the diaphragm through the symphysis pubis. Sagittal and coronal reformats were created. The radiation exposure was limited using dose reduction technology. FINDINGS: Lung bases are clear. The liver is mildly heterogeneous due to fatty infiltration. There is no evidence of a liver mass. The gallbladder is mildly distended but the wall is normal in thickness and there are no stones or sludge within the lumen. The bile ducts are normal in caliber. The spleen is normal in size and homogeneous. There is atrophy of the pancreas. In the tail there is a 6 mm cyst. This has not enlarged since prior CT performed on 07/20/17. There is no evidence of acute pancreatitis or pancreatic neoplasm. The adrenals and kidneys are normal. There is no kidney stone or hydronephrosis. The aorta is normal in caliber. There is very little plaque formation. No mass, adenopathy or ascites are present in the abdomen or pelvis. There is fecal impaction with the greatest concentration of stool in the rectum. There is no evidence of diverticulitis or inflammatory bowel disease. The small intestine is normal in caliber. Stomach contains a normal amount of fluid in the wall is normal in thickness. The uterus has been removed. Neither ovary is seen. There is a [place] catheter within the bladder. Bladder contains a moderate amount of unopacified urine. There is mild asymmetric thickening of the bladder wall along the superior left lateral border of the bladder dome. The wall measures up to 5 mm. This zone of thickening is roughly 3.5 cm in width. There is a stable old burst fracture of the T12 vertebra. There is displacement of bone into the central canal. This is unchanged from the prior CT in 2018. Patient has developed grade 2 spondylolisthesis at L4-5. This disc space is severely narrowed. There is impaction of the inferior body of L4 into the superior endplate of L5. This is causing moderate spinal canal stenosis and severe stenosis of the lateral recesses, right greater than left. IMPRESSION: Fecal impaction Fatty infiltration of the liver Zone of abnormal thickening of the bladder wall and the left upper bladder dome. This could be due to cystitis or possibly an early transitional cell tumor. This could be further evaluated by cystoscopy and/or urinalysis Atrophic pancreas with a stable cyst in the pancreatic tail Grade 2 spondylolisthesis at L4-[address] Braun was called with the report Interpreted and Authenticated by: Fernie Hamm 10/31/21
[2021-10-31] MEDS ORDERED: LACTATED RINGERS 1,000 ML IV SCH (12:15)
[2021-10-31 13:11] LABS: Appearance,Urine Turbid (Clear); Bilirubin,Urine Small mg/dL (Negative); Color,Urine Brown; Culture Indicated,Urine yes; Glucose,Urine (UA) Negative (Negative); Ketones,Urine 40 mg/dL mg/dL (Negative); Leukocyte Esterase,Urine Small /uL (Negative); Mucus,Urine FEW /hpf; Nitrate,Urine Negative (Negative); PH,Urine 5.5 (5.0-9.0); Specific Gravity,Urine 1.025 (1.000-1.035); Urine Blood Large ery/mcL (Negative); Urine Budding Yeast MANY /hpf; Urine Hyaline Cast 7 /lph (0-2); Urine RBC 82 /hpf (0-3); Urine RBC Cast 5 /lph (0-0); Urine Squamous Epithelial Cell 3 /hpf (0-4); Urine WBC > 182 /hpf (0-4); Urobilinogen,Urine Normal
[2021-10-31 13:14] LABS: Amphetamine Screen,Urine None detected; Barbiturate Screen,Urine None detected; Benzodiazepines Screen,Urine None detected; Cannabinoid Screen,Urine None detected; Cocaine Screen,Urine None detected; Opiate Screen,Urine None detected; Oxycodone, Urine Screen None detected; Phencyclidine Screen,Urine None detected
--- NOTE | 2021-10-31 13:21 | Internal Med History&Physical ---
HPI History of Present Illness Patient information: Note initiated : 10/31/21 at 1:18 pm Service Date, if different from initiated Date: [] Patient: Reba Santiago a 60 y/o F admitted on for weakness. Chief Complaint: [fall] Chief complaint: fall History of present illness: Ms. Santiago is a 60 year old F history of parkinsonism, anxiety with depressions, type 2 diabetes mellitus, hypothyroidism, presenting with 1 day history of weakness with recent fall and unable to get up by herself. Patient has history of multiple falls. She lives by herself but she has a caregiver who lives with for half the day. Yesterday when she was ambulating using her walker, she fell due to weakness and she was unable to get up from the ground overnight. She denies any loss of consciousness. She has some lower extremity pains but denies any chest pain or shortness of breath or palpitations. She was being sent to our ER for further evaluations earlier this morning. Vital signs significant for tachycardia and tachypnea heart rate and rate of breathing in the 1 teens and mid 20s, respectively. Labs significant for leukocytosis with WBC 18.4. Serum sodium and potassium level 132 and 3.1, [place] [address]. UA suggestive of presence of UTI. Admission request called for rhabdomyolysis as well as UTI and also for adult protective service and physical therapy occupational patient therapy evaluations. Constitutional Constitutional: Present frequent falls Additional comments: weakness EENT Eyes: Absent blurry vision, change in vision, loss of vision or other visual disturbances Ears: Absent decreased hearing or tinnitus Nose, mouth and throat: Absent abnormal hearing, dry mouth, headache(s), nasal congestion or sore throat Cardiovascular Cardiovascular: Absent chest pain, chest pain at rest, edema, irregular heart rhythm or palpatations Respiratory Respiratory: Absent cough, dyspnea or wheezing Gastrointestinal Gastrointestinal: Absent abdominal pain, constipation, diarrhea, nausea or vomiting Musculoskeletal Musculoskeletal: Absent back pain, deformity, limited range of motion, muscle cramps, muscle weakness or numbness Integumentary Integumentary: Absent lesions, rash or wounds Neurological Neurological: Absent focal weakness, headache(s) or numbness Psychiatric Psychiatric: Absent anxiety, depression or hallucinations PFSH PFSH All Active Problems (Updated 10/31/21 @ 13:28 by Dilan Jin MD) Hyponatremia (Acute) Hypokalemia (Acute) Anxiety with depression (Acute) T2DM (type 2 diabetes mellitus) (Acute) Hypothyroidism (Acute) Rhabdomyolysis (Acute) Urosepsis (Chronic) Bacteremia due to Escherichia coli (Chronic) History of diabetes mellitus (Chronic) Generalized anxiety disorder (Chronic) Drug-induced psychotic disorder (Chronic) Peripheral neuropathy (Chronic) Hyperthyroidism (Chronic) Primary insomnia (Chronic) Anxiety (Chronic) Ankle fracture, left (Chronic) Alcohol withdrawal (Chronic) Alcohol withdrawal delirium (Chronic) Hypomagnesemia (Chronic) Acute anxiety (Chronic) Skin ulcer of left ankle, limited to breakdown of skin (Chronic) Suicidal ideation (Chronic) Depression (Chronic) UTI (urinary tract infection) (Chronic) Acute metabolic encephalopathy (Chronic) Acute urinary retention (Chronic) Multiple falls (Chronic) Back pain (Chronic) Dysuria (Chronic) Cavernous hemangioma (Chronic) Bacterial vaginosis (Chronic) Hallucinations (Chronic) Pain in left shoulder (Chronic) Cognitive disorder (Chronic) Unspecified psychosis (Chronic) Marijuana use (Chronic) Type 2 diabetes mellitus with hyperglycemia (Chronic) Other low back pain (Chronic) Systolic murmur (Chronic) Major depression (Chronic) Insomnia (Chronic) Vitamin D deficiency (Chronic) Osteopenia (Chronic) Parkinsonism (Chronic) Instability of joint of toe of left foot (Chronic) Staggering gait (Chronic) Chronic pain (Chronic) Alteration in comfort associated with pain (Chronic) Left hip pain (Chronic) Lumbar radiculopathy (Chronic) Sciatica (Chronic) Pain in right toe(s) (Chronic) Hallux valgus (Chronic) Urinary retention with incomplete bladder emptying (Acute) Urethral pain (Acute) Recurrent urinary tract infection (Acute) Sepsis (Acute) UTI (urinary tract infection) (Acute) Acidosis, lactic (Acute) Acute back pain with sciatica (Acute) Medical History Acute anxiety Acute metabolic encephalopathy Acute urinary retention Alcohol withdrawal Alcohol withdrawal delirium Alteration in comfort associated with pain Ankle fracture, left Anxiety Back pain Bacteremia due to Escherichia coli Bacterial vaginosis Cavernous hemangioma Chronic pain Cognitive disorder Depression Drug-induced psychotic disorder Dysuria Generalized anxiety disorder Hallucinations Hallux valgus History of diabetes mellitus Hyperthyroidism Hypomagnesemia Insomnia Instability of joint of toe of left foot Left hip pain Lumbar radiculopathy Major depression Marijuana use Multiple falls Osteopenia Other low back pain Pain in left shoulder Pain in right toe(s) Parkinsonism Peripheral neuropathy Primary insomnia Sciatica Skin ulcer of left ankle, limited to breakdown of skin See wound care orders. Conservative treatment recommended. F/U at wound center after discharge. Staggering gait Suicidal ideation Systolic murmur Type 2 diabetes mellitus with hyperglycemia Unspecified psychosis Urosepsis UTI (urinary tract infection) Vitamin D deficiency Surgical History Amputation of left great toe Amputation of right great toe History of hysterectomy Family History Other No pertinent family history Social History (Updated 03/02/17 @ 15:38 by COLIN Tran) alcohol intake frequency: 2+ drinks per day substance use type: marijuana MEDS/ALLERGIES Home Medications and Allergies Home Medications Medication Instructions Recorded Confirmed Type bupropion HCl 150 mg 24 hr tablet, 150 mg PO DAILY 10/29/17 10/20/21 History extended release carbidopa 25 mg-levodopa 100 mg 2 ea PO QID 10/30/17 10/20/21 History disintegrating tablet estradiol 2 mg tablet 2 mg PO DAILY 10/30/17 10/20/21 History trazodone 100 mg tablet 100 mg PO HSP PRN Sleep 10/30/17 10/20/21 History propranolol 10 mg tablet 10 mg PO TID 06/05/18 10/20/21 History buspirone 10 mg tablet 10 mg PO TID 03/04/19 10/20/21 History baclofen 20 mg tablet 10 - 20 mg PO Q6H PRN Muscle Spasm 02/11/21 10/20/21 History bupropion HCl 300 mg 24 hr tablet, 300 mg PO DAILY 02/11/21 10/20/21 History extended release levothyroxine 50 mcg tablet 50 mcg PO QDAY 02/11/21 10/20/21 History ziprasidone HCl 20 mg capsule 20 mg PO BID 02/11/21 10/20/21 History clotrimazole 1 % vaginal cream 1 appful vaginal QHS #45 grams 07/10/21 10/20/21 Rx phenazopyridine 99.5 mg tablet 99.5 mg PO Q8H PRN pain #30 tabs 08/10/21 10/20/21 Rx ([facility]zo Urinary Pain Relief) methenamine hippurate 1 gram tablet 1 g PO BID #60 tabs 08/23/21 10/20/21 Rx miscellaneous medical supply #12 ea 08/23/21 10/20/21 Rx estradiol 0.25 appful vaginal QDAY #42.5 09/06/21 10/20/21 Rx grams Allergies Allergy/AdvReac Type Severity Reaction Status Date / Time No Known Drug Allergies Allergy Verified 10/31/21 08:54 EXAM Constitutional Vitals: Temp Pulse Resp BP Pulse Ox O2 Del Method 36.0 C L 91 H 24 H 110/78 89 L 10/31/21 08:48 10/31/21 12:32 10/31/21 10:57 10/31/21 12:32 10/31/21 12:32 10/31/21 08:48 General appearance: cooperative, disheveled and no acute distress Head Head exam: Present atraumatic and normocephalic Eye Eye exam: Present EOMI and PERRL ENT ENT exam: Present mucous membranes moist, normal exam and normal external ear exam Neck Neck exam: Present normal inspection; Absent lymphadenopathy, tenderness or thyromegaly Respiratory Respiratory exam: Absent accessory muscle use, respiratory distress or wheezes Cardiovascular Cardiovascular exam: Present normal rate and rhythm; Absent JVD GI/Abdominal GI/Abdominal exam: Present normal bowel sounds and soft; Absent organomegaly or tenderness Additional comments: Castorena catheter in place Extremities Exam Extremities exam: Present full ROM, normal capillary refill and normal inspection; Absent tenderness Neurological Exam Neurological exam: Present alert, CN II-XII intact and oriented X3; Absent motor sensory deficit Psychiatric Psychiatric exam: Present normal affect and normal mood; Absent anxious or depressed Skin Skin exam: Present dry; Absent intact Additional comments: Multiple skin laceration bilateral lower extremities DATA Data Completed and Pending Labs: Labs from last 24 hours 10/31/21 10/31/21 10/31/21 12:33 12:33 10:18 WBC RBC Hgb Hct POC Hct MCV MCH MCHC RDW Plt Count MPV Immature Gran % (Auto) Neut % (Auto) Lymph % (Auto) Spencer % (Auto) Eos % (Auto) Baso % (Auto) Lymph # (Auto) Spencer # (Auto) Eos # (Auto) Baso # (Auto) Immature Gran # Absolute Neutrophils POC Sodium POC Potassium POC Chloride POC Total CO2 POC BUN POC Creatinine POC Glucose POC WB Ioniz Calcium Total Bilirubin Direct Bilirubin AST ALT Alkaline Phosphatase Total Creatine Kinase Total Protein Albumin Globulin Lipase Urine Color Brown Urine Appearance Turbid A Urine pH 5.5 Ur Specific Murray 1.025 Urine Protein 100 mg/dl A Urine Glucose (UA) Negative Urine Ketones 40 mg/dl A Urine Occult Blood Large A Urine Nitrate Negative Urine Bilirubin Small A Urine Urobilinogen Normal Ur Leukocyte Esterase Small A Urine RBC 82 H Urine WBC > 182 H Ur Squamous Epith Cells 3 Urine Bacteria None Hyaline Casts 7 H RBC Casts 5 H Urine Mucus Few A Urine Yeast (Budding) Many A Ur Culture Indicated? yes Urine Opiates Screen None detected Ur Opiates Confirm TNP Ur Oxycodone Screen None detected U Oxycod/Oxymor Confirm TNP Urine Methadone Screen None detected Ur Methadone Confirm TNP Ur Barbiturates Screen None detected Ur Barbiturate Confirm TNP Ur Phencyclidine Scrn None detected Urine PCP Confirm TNP Ur Amphetamines Screen None detected U Amphetamines Confirm TNP U Benzodiazepines Scrn None detected Ur Benzodiazepine, Qnt TNP Urine Cocaine Screen None detected Urine Cocaine Confirm TNP U Cannabinoids Confirm TNP U Marijuana (THC) Screen None detected Ethyl Alcohol mg/dL < 10.0 Ethyl Alcohol g/dL < 0.010 10/31/21 10/31/21 10/31/21 10:09 09:40 09:40 WBC RBC Hgb Hct POC Hct 42.0 MCV MCH MCHC RDW Plt Count MPV Immature Gran % (Auto) Neut % (Auto) Lymph % (Auto) Spencer % (Auto) Eos % (Auto) Baso % (Auto) Lymph # (Auto) Spencer # (Auto) Eos # (Auto) Baso # (Auto) Immature Gran # Absolute Neutrophils POC Sodium 132 L POC Potassium 3.1 L POC Chloride 95 L POC Total CO2 20.0 L POC BUN 5 L POC Creatinine 0.6 POC Glucose 108 H POC WB Ioniz Calcium 1.01 L Total Bilirubin 0.5 Direct Bilirubin < 0.2 AST 66 H ALT 22 Alkaline Phosphatase 71 Total Creatine Kinase 49244 H Total Protein 6.9 Albumin 3.7 Globulin 3.2 Lipase 11 Urine Color Urine Appearance Urine pH Ur Specific Murray Urine Protein Urine Glucose (UA) Urine Ketones Urine Occult Blood Urine Nitrate Urine Bilirubin Urine Urobilinogen Ur Leukocyte Esterase Urine RBC Urine WBC Ur Squamous Epith Cells Urine Bacteria Hyaline Casts RBC Casts Urine Mucus Urine Yeast (Budding) Ur Culture Indicated? Urine Opiates Screen Ur Opiates Confirm Ur Oxycodone Screen U Oxycod/Oxymor Confirm Urine Methadone Screen Ur Methadone Confirm Ur Barbiturates Screen Ur Barbiturate Confirm Ur Phencyclidine Scrn Urine PCP Confirm Ur Amphetamines Screen U Amphetamines Confirm U Benzodiazepines Scrn Ur Benzodiazepine, Qnt Urine Cocaine Screen Urine Cocaine Confirm U Cannabinoids Confirm U Marijuana (THC) Screen Ethyl Alcohol mg/dL Ethyl Alcohol g/dL 10/31/21 09:40 WBC 18.4 H RBC 3.95 Hgb 11.7 Hct 36.6 POC Hct MCV 92.7 MCH 29.6 MCHC 32.0 RDW 15.6 H Plt Count 558 H MPV 10.8 H Immature Gran % (Auto) 0.8 H Neut % (Auto) 85.4 H Lymph % (Auto) 9.3 L Spencer % (Auto) 4.3 Eos % (Auto) 0.1 Baso % (Auto) 0.1 Lymph # (Auto) 1.71 Spencer # (Auto) 0.79 Eos # (Auto) 0.02 Baso # (Auto) 0.02 Immature Gran # 0.15 H Absolute Neutrophils 15.86 H POC Sodium POC Potassium POC Chloride POC Total CO2 POC BUN POC Creatinine POC Glucose POC WB Ioniz Calcium Total Bilirubin Direct Bilirubin AST ALT Alkaline Phosphatase Total Creatine Kinase Total Protein Albumin Globulin Lipase Urine Color Urine Appearance Urine pH Ur Specific Murray Urine Protein Urine Glucose (UA) Urine Ketones Urine Occult Blood Urine Nitrate Urine Bilirubin Urine Urobilinogen Ur Leukocyte Esterase Urine RBC Urine WBC Ur Squamous Epith Cells Urine Bacteria Hyaline Casts RBC Casts Urine Mucus Urine Yeast (Budding) Ur Culture Indicated? Urine Opiates Screen Ur Opiates Confirm Ur Oxycodone Screen U Oxycod/Oxymor Confirm Urine Methadone Screen Ur Methadone Confirm Ur Barbiturates Screen Ur Barbiturate Confirm Ur Phencyclidine Scrn Urine PCP Confirm Ur Amphetamines Screen U Amphetamines Confirm U Benzodiazepines Scrn Ur Benzodiazepine, Qnt Urine Cocaine Screen Urine Cocaine Confirm U Cannabinoids Confirm U Marijuana (THC) Screen Ethyl Alcohol mg/dL Ethyl Alcohol g/dL A/P Assessment and plan (1) Rhabdomyolysis: Status: Acute (2) Hypothyroidism: Status: Acute (3) T2DM (type 2 diabetes mellitus): Status: Acute (4) Parkinsonism: Status: Chronic (5) Anxiety with depression: Status: Acute (6) UTI (urinary tract infection): Status: Chronic (7) Hypokalemia: Status: Acute (8) Hyponatremia: Status: Acute Narrative A/P Narrative: Assessment and Plans: 1. 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 UTI with sepsis criteria: Serial lactic acid Procalcitonin Blood culture Urine culture cbc w/ auto diff in the morning to trend WBC s/p IV fluid bolus given in the ED, to be followed by LR@200cc/hr Rocephin 3. Depression with Anxiety: Buspirone Bupropion Ziprasidone 3. Parkinsonism: Sinemet 4. Hypothyroidism: Continue oral thyroid replacement therapy 5. T2DM: HgA1c Hold any oral hypoglycemics SSI AC HS Accu Chek AC HS Hypoglycemia protocol Diabetic diet 6. Hypokalemia: Potassium oral replacement CMP in the morning to trend serum potassium level Also check serum Mg level and replace if needed GI ppx: not currently indicated DVT ppx: Lovenox Code status: Full Prognosis: guarded Disposition: inpatient med surg; PT OT Time Spent With Patient Time: Total time spent is greater than 50% in coordination of care (as documented) at patient's floor/unit and/or counseling patient: Total time spent with greater than 50% in coordination of care (as documented) at patient's floor/unit and/or counseling patient:: 50 - 70 minutes
[2021-10-31] MEDS ORDERED: DEXTROSE 50% 50 ML VIAL IV PRN (15:16)
[2021-10-31] MEDS ORDERED: traZODone HCL 100 MG TABLET PO PRN (15:16)
[2021-10-31] MEDS ORDERED: IPRATROPIUM/ALBUTEROL 3 ML AMPUL.NEB NEB PRN (15:16)
[2021-10-31] MEDS ORDERED: DEXTROSE 31 GM ORAL.SUSP PO PRN (15:16)
[2021-10-31] MEDS ORDERED: PHENAZOPYRIDINE 200 MG TABLET PO PRN (15:47)
[2021-10-31] MEDS: PROPRANOLOL 10 MG TABLET PO SCH ×2 (16:00→20:59)
[2021-10-31] MEDS: cefTRIAXone 1 GM VIAL IV SCH (16:16)
[2021-10-31] MEDS: INSULIN LISPRO 1 UNIT/0.01 ML UNIT SQ SCH ×2 (17:38→20:18)
[2021-10-31] MEDS: morphine 4 MG/ML VIAL IV PRN (17:56)
[2021-10-31] MEDS: LACTATED RINGERS 1,000 ML IV SCH ×2 (18:16→19:59)
[2021-10-31] MEDS: 0.9 % SODIUM CHLORIDE 10 ML SYRINGE IV SCH ×2 (18:16→21:27)
[2021-10-31] MEDS ORDERED: traMADol (PP) 50 MG TABLET (#4) PO PRN (18:24)
[2021-10-31] MEDS: POTASSIUM CHLORIDE 20 MEQ TABLET PO SCH (18:36)
[2021-10-31] MEDS: CARBIDOPA/LEVODOPA 25/100 TABLET PO SCH ×2 (18:36→20:30)
[2021-10-31] MEDS: BACLOFEN 10 MG TABLET PO PRN (19:50)
--- NOTE | 2021-10-31 20:22 | EKG ---
[facility] Test Date: 2021-10-31 Pat Name: Reba Santiago Department: ED Room: Gender: Female Whizzer Hand: AW : 1960 Requested By: Harjit Braun Order Number: [id number] Reading MD: Mj Correa Measurements Intervals [place] Rate: 87 P: 105 ME: 236 QRS: 62 QRSD: 88 T: 230 QT: 449 QTc: 541 Interpretive Statements Sinus rhythm Prolonged ME interval Consider left atrial enlargement Low voltage, extremity leads Consider left ventricular hypertrophy Abnrm T, Electronically Signed On 10-31-2021 20:21:43 PDT by Mj Correa /store/M0/[id number]
[2021-10-31] MEDS: DOCUSATE SODIUM 100 MG CAPSULE PO SCH (20:30)
[2021-10-31] MEDS: SENNOSIDES 1 TABLET PO SCH (20:30)
[2021-10-31] MEDS: busPIRone 5 MG TABLET PO SCH (20:30)
[2021-10-31] MEDS: IBUPROFEN 600 MG TABLET PO PRN (20:31)
[2021-10-31] MEDS ORDERED: ENTACAPONE 200 MG PO SCH (21:00)
[2021-10-31] MEDS ORDERED: CLOTRIMAZOLE VAG CRM 1% TUBE 45 GM VAG SCH (21:00)
[2021-10-31] MEDS ORDERED: PREGABALIN 300 MG PO SCH (21:00)
[2021-10-31] MEDS: ASCORBIC ACID 500 MG TABLET PO SCH ×2 (21:11→21:27)
[2021-10-31] MEDS: busPIRone 15 MG TABLET PO SCH (21:26)
[2021-10-31] MEDS: PREGABALIN 150 MG CAPSULE PO SCH (21:29)
[2021-10-31] MEDS: ONDANSETRON 4 MG/2 ML VIAL IV PRN (22:25)
[2021-11-01] MEDS: morphine 4 MG/ML VIAL IV PRN ×2 (01:01→05:07)
[2021-11-01] MEDS: LACTATED RINGERS 1,000 ML IV SCH ×6 (01:03→22:17)
[2021-11-01] MEDS: traMADol 50 MG TABLET PO PRN ×3 (03:31→16:53)
[2021-11-01] MEDS: ACETAMINOPHEN 325 MG TABLET PO PRN (03:32)
[2021-11-01] MEDS: 0.9 % SODIUM CHLORIDE 10 ML SYRINGE IV SCH ×3 (05:25→22:17)
[2021-11-01 06:20] LABS: Basophils # (Auto) 0.01 K/mcL (0.00-0.30); Basophils % (Auto) 0.1 % (0.0-2.0); Eosinophils # (Auto) 0 K/mcL (0.00-0.70); Eosinophils % (Auto) 0 % (0.0-7.0); Hematocrit 28.4 % (34.1-44.9); Hemoglobin 9.1 g/dL (11.2-15.7); Lymphocytes # (Auto) 1.23 K/mcL (1.50-4.80); Lymphocytes % (Auto) 8.2 % (15.5-49.0); Mean Cell Volume 93.4 fL (80.0-100.0); Mean Platelet Volume 10.6 fL (7.4-10.4); Monocytes # (Auto) 0.43 K/mcL (0.10-0.90); Monocytes % (Auto) 2.9 % (1.0-12.0); Neutrophils % (Auto) 88.1 % (38.0-78.0); Platelet Count 351 K/mcL (140-440); RBC 3.04 M/mcL (3.59-5.38); Red Cell Distribution Width 16.5 % (11.5-14.5); WBC 15.1 K/mcL (4.5-11.0)
[2021-11-01 06:52] LABS: ALT/SGPT 7 U/L (<40); AST/SGOT 102 U/L (<32); Albumin 2.8 gm/dL (3.2-5.2); Albumin/Globulin Ratio 1.3 (1.0-2.3); Alkaline Phosphatase 51 U/L (39-117); Bilirubin,Total 0.3 mg/dL (0.1-1.0); Blood Urea Nitrogen 5 mg/dL (6-20); Calcium 7.9 mg/dL (8.6-10.4); Carbon Dioxide 20 mmol/L (22-30); Chloride 101 mmol/L (96-108); Globulin 2.1 gm/dL (2.2-3.7); Glomerular Filtration Rate 105; Glucose 89 mg/dL (70-105); Phosphorous 3.5 mg/dL (2.5-4.5)
[2021-11-01] MEDS: INSULIN LISPRO 1 UNIT/0.01 ML UNIT SQ SCH ×4 (07:58→20:11)
[2021-11-01] MEDS ORDERED: ESTRADIOL VAG CREAM 42GM TUBE VAG SCH (09:00)
[2021-11-01] MEDS ORDERED: buPROPion 300 MG TAB.XL.24H PO SCH (09:00)
[2021-11-01] MEDS: PREGABALIN 150 MG CAPSULE PO SCH ×2 (10:14→20:12)
[2021-11-01] MEDS: CARBIDOPA/LEVODOPA 25/100 TABLET PO SCH ×4 (10:15→20:12)
[2021-11-01] MEDS: LEVOTHYROXINE 50 MCG TABLET PO SCH (10:16)
[2021-11-01] MEDS: ESTRADIOL 1 MG TABLET PO SCH (10:17)
[2021-11-01] MEDS: busPIRone 15 MG TABLET PO SCH ×3 (10:17→20:12)
[2021-11-01] MEDS: DOCUSATE SODIUM 100 MG CAPSULE PO SCH ×2 (10:18→20:12)
[2021-11-01] MEDS: PROPRANOLOL 10 MG TABLET PO SCH ×3 (10:18→20:12)
[2021-11-01] MEDS: POTASSIUM CHLORIDE 20 MEQ TABLET PO SCH ×2 (10:20→16:55)
[2021-11-01] MEDS: ENOXAPARIN 40 MG/0.4 ML SYRINGE SQ SCH (10:23)
[2021-11-01] MEDS: buPROPion 150 MG TAB.XL.24H PO SCH (10:24)
[2021-11-01] MEDS: ASCORBIC ACID 500 MG TABLET PO SCH ×2 (10:26→20:12)
[2021-11-01] MEDS ORDERED: PROMETHAZINE 25 MG/ML VIAL IV PRN (10:38)
[2021-11-01] MEDS: cefTRIAXone 1 GM VIAL IV SCH (10:48)
[2021-11-01] MEDS: MAGNESIUM OXIDE 400 MG TABLET PO SCH ×2 (10:48→20:12)
--- NOTE | 2021-11-01 10:49 | Internal Med Progress Note ---
SUBJECTIVE Subjective Patient information: Note initiated : 11/01/21 at 10:44 am Service Date, if different from initiated Date: [] Patient: Reba Santiago 60 y/o F admitted on 10/31/21 for weakness. Chief Complaint: [] Interval history: Ms. Santiago is a 60 year old F history of parkinsonism, anxiety with depressions, type 2 diabetes mellitus, hypothyroidism, presenting with 1 day history of weakness with recent fall and unable to get up by herself. Patient has history of multiple falls. She lives by herself but she has a caregiver who lives with for half the day. Yesterday when she was ambulating using her walker, she fell due to weakness and she was unable to get up from the ground overnight. She denies any loss of consciousness. She has some lower extremity pains but denies any chest pain or shortness of breath or palpitations. She was being sent to our ER for further evaluations earlier this morning. Vital signs significant for tachycardia and tachypnea heart rate and rate of breathing in the 1 teens and mid 20s, respectively. Labs significant for leukocytosis with WBC 18.4. Serum sodium and potassium level 132 and 3.1, [place] [address]. UA suggestive of presence of UTI. Admission request called for rha bdomyolysis as well as UTI and also for adult protective service and physical therapy occupational patient therapy evaluations. 11/01: Patient has been afebrile overnight. 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 Blood and urine culture no growth to date. Serum CK level trended down from 19,000-6000 overnight. Patient is complaining of lower back pain. She currently denies any nausea or vomiting. Continue IV fluid for rhabdomyolysis. Continue Rocephin for UTI. Pending physical therapy and Occupational Therapy evaluations for placement pending. We will also order speech therapy swalloing evaluation. DC morphine to avoid oversedation. Also pending adult protective service investigations for home safety. Constitutional Vitals: Vital Signs Temp Pulse Resp BP Pulse Ox O2 Del Method 36.8 C 96 H 15 106/67 97 11/01/21 07:28 11/01/21 07:28 11/01/21 07:28 11/01/21 07:28 11/01/21 07:28 11/01/21 07:28 Period Temp Pulse Resp BP Sys/[place] Pulse Ox O2 Del Method O2 Flow Rate Last 24 Hr 36.1 C-37.1 C 67-120 12-24 88-127/58-90 87-100 Room Air-Room Air Intake and Output 10/31/21 11/01/21 11/01/21 21:59 05:59 13:59 Intake Total 599 1100 1000 Output Total 575 Balance 706 689 3579 Weight 46.72 kg Intake & Output: Intake & Output 10/31/21 11/01/21 11/01/21 21:59 05:59 13:59 Intake Total 599 1100 1000 Output Total 575 Balance 548 286 8747 Weight 46.72 kg Intake: IV 119 1000 1000 Lactated Ringers 1,000 ml @ 200 1000 1000 mls/hr IV .Q5H [place] Rx#: [id number] Potassium Chloride 20 Meq In 119 Dextrose 5% in Water 250 ml @ 130 mls/hr IV ONCE ONE Rx#: [id number] Oral 480 100 Output: Urine Catheter Amount 525 Emesis 50 Other: Percent of Meal Consumed bites Urine Appearance Uretheral ([place]) Clear Clear Urine Color Tea Colored Uretheral ([place]) Dark Valarie Bright Yellow Urine Odor Uretheral ([place]) Normal # Unmeasured Emesis 1 General appearance: disheveled, no acute distress and thin Head Head exam: Present atraumatic and normal inspection Eye Eye exam: Present normal appearance ENT ENT exam: Present mucous membranes moist, normal exam and normal external ear exam Neck Neck exam: Present normal inspection Respiratory Respiratory exam: Present normal respiratory exam Cardiovascular Cardiovascular exam: Present normal rate and rhythm GI/Abdominal GI/Abdominal exam: Present normal bowel sounds Additional comments: [place] catheter in place Back Exam Back exam: Present normal inspection Neurological Exam Neurological exam: Present alert and oriented X3 Skin Skin exam: Present intact and warm OBJ DATA Labs CBC & Chem 7: 11/01/21 05:38 11/01/21 05:38 Labs: Abnormal Lab Results 11/01/21 11/01/21 11/01/21 05:38 05:38 05:38 WBC 15.1 H RBC 3.04 L Hgb 9.1 L Hct 28.4 L RDW 16.5 H Plt Count MPV 10.6 H Immature Gran % (Auto) 0.7 H Neut % (Auto) 88.1 H Lymph % (Auto) 8.2 L Lymph # (Auto) 1.23 L Immature Gran # 0.10 H Absolute Neutrophils 13.41 H POC Sodium POC Potassium POC Chloride Carbon Dioxide 20 L POC Total CO2 POC BUN BUN 5 L Creatinine 0.5 L POC Glucose Calcium 7.9 L POC WB Ioniz Calcium Magnesium 1.4 L AST 102 H Total Creatine Kinase 6201 H Total Protein 4.9 L Albumin 2.8 L Globulin 2.1 L Procalcitonin Urine Appearance Urine Protein Urine Ketones Urine Occult Blood Urine Bilirubin Ur Leukocyte Esterase Urine RBC Urine WBC Hyaline Casts RBC Casts Urine Mucus Urine Yeast (Budding) 10/31/21 10/31/21 10/31/21 12:33 10:09 09:40 WBC RBC Hgb Hct RDW Plt Count MPV Immature Gran % (Auto) Neut % (Auto) Lymph % (Auto) Lymph # (Auto) Immature Gran # Absolute Neutrophils POC Sodium 132 L POC Potassium 3.1 L POC Chloride 95 L Carbon Dioxide POC Total CO2 20.0 L POC BUN 5 L BUN Creatinine POC Glucose 108 H Calcium POC WB Ioniz Calcium 1.01 L Magnesium AST Total Creatine Kinase Total Protein Albumin Globulin Procalcitonin 0.36 H Urine Appearance Turbid A Urine Protein 100 mg/dl A Urine Ketones 40 mg/dl A Urine Occult Blood Large A Urine Bilirubin Small A Ur Leukocyte Esterase Small A Urine RBC 82 H Urine WBC > 182 H Hyaline Casts 7 H RBC Casts 5 H Urine Mucus Few A Urine Yeast (Budding) Many A 10/31/21 10/31/21 10/31/21 09:40 09:40 09:40 WBC 18.4 H RBC Hgb Hct RDW 15.6 H Plt Count 558 H MPV 10.8 H Immature Gran % (Auto) 0.8 H Neut % (Auto) 85.4 H Lymph % (Auto) 9.3 L Lymph # (Auto) Immature Gran # 0.15 H Absolute Neutrophils 15.86 H POC Sodium POC Potassium POC Chloride Carbon Dioxide POC Total CO2 POC BUN BUN Creatinine POC Glucose Calcium POC WB Ioniz Calcium Magnesium AST 66 H Total Creatine Kinase 25998 H Total Protein Albumin Globulin Procalcitonin Urine Appearance Urine Protein Urine Ketones Urine Occult Blood Urine Bilirubin Ur Leukocyte Esterase Urine RBC Urine WBC Hyaline Casts RBC Casts Urine Mucus Urine Yeast (Budding) Meds: Medications Acetaminophen (Acetaminophen 325 Mg Tablet) 650 mg PO Q6HP PRN; Protocol PRN Reason: Per Pain Protocol/Fever > 101 Last Admin: 11/01/21 03:32 Dose: 650 mg Albuterol/Ipratropium (Ipratropium/Albuterol 3 Ml Ampul.Neb) 3 ml NEB Q4HRT PRN PRN Reason: Wheezing Ascorbic Acid (Ascorbic Acid 500 Mg Tablet) 500 mg PO BID COUNTS INCLUDE 234 BEDS AT THE [facility] Last Admin: 11/01/21 10:26 Dose: 500 mg Baclofen (Baclofen 10 Mg Tablet) 10 - 20 mg PO Q6HP PRN PRN Reason: Spasms Last Admin: 10/31/21 19:50 Dose: 10 mg Bupropion HCl (Bupropion 150 Mg Tab.Xl.24h) 450 mg PO DAILY COUNTS INCLUDE 234 BEDS AT THE [facility] Last Admin: 11/01/21 10:24 Dose: 450 mg Buspirone HCl (Buspirone 15 Mg Tablet) 15 mg PO TID COUNTS INCLUDE 234 BEDS AT THE [facility] Last Admin: 11/01/21 10:17 Dose: 15 mg Carbidopa/Levodopa (Carbidopa/Levodopa 25/100 Tablet) 2 tab PO QID COUNTS INCLUDE 234 BEDS AT THE [facility] Last Admin: 11/01/21 10:15 Dose: 2 tab Ceftriaxone Sodium (Ceftriaxone 1 Gm Vial) 1 gm IV Q24H COUNTS INCLUDE 234 BEDS AT THE [facility]; Protocol Last Admin: 10/31/21 16:16 Dose: 1 gm Dextrose (Dextrose 50% 50 Ml Vial) 0 ml IV UD PRN PRN Reason: Per Sliding Scale Diagnostic Test (Pha) (Accu-Chek 1 Each Strip) 1 each FS ACHS COUNTS INCLUDE 234 BEDS AT THE [facility] Last Admin: 11/01/21 07:57 Dose: 1 each Docusate Sodium (Docusate Sodium 100 Mg Capsule) 100 mg PO BID COUNTS INCLUDE 234 BEDS AT THE [facility] Last Admin: 11/01/21 10:18 Dose: 100 mg Enoxaparin Sodium (Enoxaparin 40 Mg/0.4 Ml Syringe) 40 mg SQ DAILY COUNTS INCLUDE 234 BEDS AT THE [facility] Last Admin: 11/01/21 10:23 Dose: 40 mg Estradiol (Estradiol 1 Mg Tablet) 2 mg PO DAILY COUNTS INCLUDE 234 BEDS AT THE [facility] Last Admin: 11/01/21 10:17 Dose: 2 mg Glucose (Dextrose 31 Gm Oral.Susp) 15 gm PO PRN PRN PRN Reason: Hypoglycemia Lactated Ringer's (Lactated Ringers) 1,000 mls @ 200 mls/hr IV .Q5H COUNTS INCLUDE 234 BEDS AT THE [facility] Last Admin: 11/01/21 06:41 Dose: 200 mls/hr Ibuprofen (Ibuprofen 600 Mg Tablet) 600 mg PO QIDP PRN; Protocol PRN Reason: Per Pain Protocol/Fever > 101 Last Admin: 10/31/21 20:31 Dose: 600 mg Insulin Human Lispro (Insulin Lispro 1 Unit/0.01 Ml Unit) 0 unit SQ [facility] COUNTS INCLUDE 234 BEDS AT THE [facility]; Protocol Last Admin: 11/01/21 07:58 Dose: Not Given Levothyroxine Sodium (Levothyroxine 50 Mcg Tablet) 50 mcg PO QDAY COUNTS INCLUDE 234 BEDS AT THE [facility] Last Admin: 11/01/21 10:16 Dose: 50 mcg Lorazepam (Lorazepam 1 Mg Tablet) 1 mg PO DAILYP PRN PRN Reason: ANXIETY/SEDATION Magnesium Oxide (Magnesium Oxide 400 Mg Tablet) 400 mg PO BID COUNTS INCLUDE 234 BEDS AT THE [facility] Ondansetron HCl (Ondansetron 4 Mg/2 Ml Vial) 4 mg IV Q6HP PRN PRN Reason: Nausea And Vomiting Last Admin: 10/31/21 22:25 Dose: 4 mg Ziprasidone Hcl 20 (Mg Capsule) 1 dose PO BID COUNTS INCLUDE 234 BEDS AT THE [facility] Last Admin: 10/31/21 20:58 Dose: Not Given Entacapone 200 Mg (Tablet) 1 dose PO QID COUNTS INCLUDE 234 BEDS AT THE [facility] Phenazopyridine HCl (Phenazopyridine 200 Mg Tablet) 100 mg PO TIDP PRN PRN Reason: PAINFUL URINATION Potassium Chloride (Potassium Chloride 20 Meq Tablet) 20 meq PO BIDCC COUNTS INCLUDE 234 BEDS AT THE [facility] Last Admin: 11/01/21 10:20 Dose: 20 meq Pregabalin (Pregabalin 150 Mg Capsule) 300 mg PO BID COUNTS INCLUDE 234 BEDS AT THE [facility] Last Admin: 11/01/21 10:14 Dose: 300 mg Promethazine HCl (Promethazine 25 Mg/Ml Vial) 25 mg IV Q4-6HP PRN PRN Reason: Nausea And Vomiting Propranolol HCl (Propranolol 10 Mg Tablet) 10 mg PO TID COUNTS INCLUDE 234 BEDS AT THE [facility] Last Admin: 11/01/21 10:18 Dose: 10 mg Senna (Sennosides 1 Tablet) 2 tab PO HS COUNTS INCLUDE 234 BEDS AT THE [facility] Last Admin: 10/31/21 20:30 Dose: 2 tab Sodium Chloride (0.9 % Sodium Chloride 10 Ml Syringe) 10 ml IV Q8 COUNTS INCLUDE 234 BEDS AT THE [facility] Last Admin: 11/01/21 05:25 Dose: Not Given Tramadol HCl (Tramadol 50 Mg Tablet) 50 mg PO Q4HP PRN; Protocol PRN Reason: Pain Last Admin: 11/01/21 03:31 Dose: 50 mg Trazodone HCl (Trazodone Hcl 100 Mg Tablet) 100 mg PO HSP PRN PRN Reason: Sleep Last Admin: 10/31/21 20:31 Dose: 100 mg A/P Assessment and plan (1) Rhabdomyolysis: Status: Acute (2) Hypothyroidism: Status: Acute (3) T2DM (type 2 diabetes mellitus): Status: Acute (4) Parkinsonism: Status: Chronic (5) Anxiety with depression: Status: Acute (6) UTI (urinary tract infection): Status: Chronic (7) Hypokalemia: Status: Acute (8) Hyponatremia: Status: Acute Narrative A/P Narrative: Assessment and Plans: 1. Rhabdomyolysis: Inpatient med surg s/p IV fluid bolus given in the ED, to be followed by LR@200cc/hr Daily serm CK level Adult protective service publications [employer]erman[employer] therapy Occupational therapy 2. UTI with sepsis criteria: Serial lactic acid Procalcitonin Blood culture, no growth to date Urine culture , no growth to date cbc w/ auto diff in the morning to trend WBC s/p IV fluid bolus given in the ED, to be followed by LR@200cc/hr Rocephin 3. Depression with Anxiety: Buspirone Bupropion Ziprasidone 3. Parkinsonism: Sinemet 4. Hypothyroidism: Continue oral thyroid replacement therapy 5. T2DM: HgA1c Hold any oral hypoglycemics SSI AC HS Accu Chek AC HS Hypoglycemia protocol Diabetic diet 6. Hypokalemia: Potassium oral replacement CMP in the morning to trend serum potassium level Also check serum Mg level and replace if needed 7. Questionable dysphagia: Speech therapy swallowing evaluation GI ppx: not currently indicated DVT ppx: Lovenox Code status: Full Prognosis: guarded Disposition: inpatient med surg; PT OT Time Spent With Patient Time: Total time spent is greater than 50% in coordination of care (as documented) at patient's floor/unit and/or counseling patient: Total time spent with greater than 50% in coordination of care (as documented) at patient's floor/unit and/or counseling patient:: 35 - 50 minutes
[2021-11-01] MEDS: busPIRone 5 MG TABLET PO SCH (11:02)
[2021-11-01] MEDS: Entacapone 200 mg Tablet PO SCH ×4 (11:04→20:15)
[2021-11-01] MEDS: SENNOSIDES 1 TABLET PO SCH (20:12)
[2021-11-01] MEDS: ONDANSETRON 4 MG/2 ML VIAL IV PRN (20:18)
[2021-11-02] MEDS: LACTATED RINGERS 1,000 ML IV SCH ×2 (03:11→08:40)
[2021-11-02] MEDS: 0.9 % SODIUM CHLORIDE 10 ML SYRINGE IV SCH ×3 (05:18→20:07)
[2021-11-02] MEDS: traMADol 50 MG TABLET PO PRN (05:38)
[2021-11-02 06:17] LABS: Basophils # (Auto) 0.02 K/mcL (0.00-0.30); Basophils % (Auto) 0.3 % (0.0-2.0); Eosinophils # (Auto) 0.03 K/mcL (0.00-0.70); Eosinophils % (Auto) 0.4 % (0.0-7.0); Hematocrit 24.4 % (34.1-44.9); Hemoglobin 7.6 g/dL (11.2-15.7); Lymphocytes # (Auto) 1.93 K/mcL (1.50-4.80); Lymphocytes % (Auto) 25.8 % (15.5-49.0); Mean Cell Volume 95.7 fL (80.0-100.0); Mean Corpuscular HGB Conc 31.1 g/dL (31.0-36.0); Mean Platelet Volume 10.7 fL (7.4-10.4); Monocytes # (Auto) 0.74 K/mcL (0.10-0.90); Monocytes % (Auto) 9.9 % (1.0-12.0); Neutrophils % (Auto) 63.2 % (38.0-78.0); Platelet Count 263 K/mcL (140-440); RBC 2.55 M/mcL (3.59-5.38); Red Cell Distribution Width 16.8 % (11.5-14.5); WBC 7.5 K/mcL (4.5-11.0)
[2021-11-02 06:43] LABS: ALT/SGPT 10 U/L (<40); AST/SGOT 83 U/L (<32); Albumin 2.3 gm/dL (3.2-5.2); Albumin/Globulin Ratio 1.1 (1.0-2.3); Alkaline Phosphatase 45 U/L (39-117); Bilirubin,Total 0.2 mg/dL (0.1-1.0); Blood Urea Nitrogen 5 mg/dL (6-20); Calcium 7.6 mg/dL (8.6-10.4); Carbon Dioxide 22 mmol/L (22-30); Chloride 102 mmol/L (96-108); Creatine Kinase 1751 U/L (24-170); Globulin 2.1 gm/dL (2.2-3.7); Glomerular Filtration Rate 113; Glucose 97 mg/dL (70-105); Phosphorous 2.3 mg/dL (2.5-4.5)
[2021-11-02] MEDS: INSULIN LISPRO 1 UNIT/0.01 ML UNIT SQ SCH ×4 (07:58→20:06)
[2021-11-02] MEDS: CARBIDOPA/LEVODOPA 25/100 TABLET PO SCH ×4 (08:35→20:05)
[2021-11-02] MEDS: buPROPion 150 MG TAB.XL.24H PO SCH (08:35)
[2021-11-02] MEDS: ESTRADIOL 1 MG TABLET PO SCH (08:36)
[2021-11-02] MEDS: LEVOTHYROXINE 50 MCG TABLET PO SCH (08:36)
[2021-11-02] MEDS: PREGABALIN 150 MG CAPSULE PO SCH ×2 (08:36→20:06)
[2021-11-02] MEDS: ASCORBIC ACID 500 MG TABLET PO SCH ×2 (08:37→20:05)
[2021-11-02] MEDS: busPIRone 15 MG TABLET PO SCH ×3 (08:37→20:05)
[2021-11-02] MEDS: PROPRANOLOL 10 MG TABLET PO SCH ×3 (08:37→20:05)
[2021-11-02] MEDS: POTASSIUM CHLORIDE 20 MEQ TABLET PO SCH ×2 (08:37→17:25)
[2021-11-02] MEDS: DOCUSATE SODIUM 100 MG CAPSULE PO SCH ×2 (08:37→20:06)
[2021-11-02] MEDS: ENOXAPARIN 40 MG/0.4 ML SYRINGE SQ SCH (08:37)
[2021-11-02] MEDS: MAGNESIUM OXIDE 400 MG TABLET PO SCH ×2 (08:37→20:05)
[2021-11-02] MEDS: cefTRIAXone 1 GM VIAL IV SCH (08:38)
[2021-11-02] MEDS: ACETAMINOPHEN 325 MG TABLET PO PRN ×2 (08:38→16:47)
[2021-11-02] MEDS: Entacapone 200 mg Tablet PO SCH ×4 (08:40→20:06)
[2021-11-02] MEDS: ONDANSETRON 4 MG/2 ML VIAL IV PRN ×2 (10:44→20:03)
--- NOTE | 2021-11-02 11:14 | Internal Med Progress Note ---
SUBJECTIVE Subjective Patient information: Note initiated : 11/02/21 at 11:06 am Service Date, if different from initiated Date: [] Patient: Reba Santiago a 60 y/o F admitted on 10/31/21 for weakness. Chief Complaint: [] Interval history: Ms. Santiago is a 60 year old F history of parkinsonism, anxiety with depressions, type 2 diabetes mellitus, hypothyroidism, presenting with 1 day history of weakness with recent fall and unable to get up by herself. Patient has history of multiple falls. She lives by herself but she has a caregiver who lives with for half the day. Yesterday when she was ambulating using her walker, she fell due to weakness and she was unable to get up from the ground overnight. She denies any loss of consciousness. She has some lower extremity pains but denies any chest pain or shortness of breath or palpitations. She was being sent to our ER for further evaluations earlier this morning. Vital signs significant for tachycardia and tachypnea heart rate and rate of breathing in the 1 teens and mid 20s, respectively. Labs significant for leukocytosis with WBC 18.4. Serum sodium and potassium level 132 and 3.1, [place] [address]. UA suggestive of presence of UTI. Admission request called for rha bdomyolysis as well as UTI and also for adult protective service and physical therapy occupational patient therapy evaluations. 11/01: Patient has been afebrile overnight. 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 Blood and urine culture no growth to date. Serum CK level trended down from 19,000-6000 overnight. Patient is complaining of lower back pain. She currently denies any nausea or vomiting. Continue IV fluid for rhabdomyolysis. Continue Rocephin for UTI. Pending physical therapy and Occupational Therapy evaluations for placement pending. We will also order speech therapy swalloing evaluation. DC morphine to avoid oversedation. Also pending adult protective service investigations for home safety. 11/02: Serum CK continue to downtrend today 175. Patient's was being evaluated by speech therapist who put her on a level 4 dysphagia diet. Patient is coming of mild nausea but denies any vomiting or abdominal pain. She denies any lower extremity pains at the moment. We will saline lock patient's. We will stop checking serum CK level. We will have physical therapy to continue to evaluate patient's for placement pending. We will also have speech therapy to reevaluate patient's for further recommendations on diet advancement. Also pending adult protective service investigations for home safety. Constitutional Vitals: Vital Signs Temp Pulse Resp BP Pulse Ox O2 Del Method O2 Flow Rate 36.2 C 87 18 116/76 93 2 11/02/21 07:30 11/02/21 07:30 11/02/21 07:30 11/02/21 07:30 11/02/21 07:30 11/02/21 07:30 11/02/21 07:30 Period Temp Pulse Resp BP Sys/[place] Pulse Ox O2 Del Method O2 Flow Rate Last 24 Hr 36.2 C-37.1 C 78-87 16-20 88-116/57-76 91-97 Nasal Cannula- Room Air 2 Intake and Output 11/01/21 11/02/21 11/02/21 21:59 05:59 13:59 Intake Total 2470 1530 1030 Output Total 250 400 Balance 2220 1130 1030 Weight 46.947 kg Intake & Output: Intake & Output 11/01/21 11/02/21 11/02/21 21:59 05:59 13:59 Intake Total 2470 1530 1030 Output Total 250 400 Balance 2220 1130 1030 Weight 46.947 kg Intake: Nourishment/Supplement quantity 30 (ml) IV 3482 552 8445 Lactated Ringers 1,000 ml @ 200 1040 463 5206 mls/hr IV .Q5H [facility] Rx#: [id number] Oral 480 550 Output: Urine Catheter Amount 250 400 Other: Meal Dinner Breakfast Percent of Meal Consumed 25% 75% Feeding Ability Total Assistance Assist with Tray Set Up Nourishment/Supplement name Candido Urine Appearance Clear Clear Uretheral ([place]) Clear Clear Urine Color Bright Yellow Bright Yellow Uretheral ([place]) Bright Yellow Bright Yellow Urine Odor Normal Uretheral ([place]) Normal General appearance: disheveled, no acute distress and thin Head Head exam: Present atraumatic and normal inspection Eye Eye exam: Present normal appearance ENT ENT exam: Present mucous membranes moist, normal exam and normal external ear exam Neck Neck exam: Present normal inspection Respiratory Respiratory exam: Present normal respiratory exam Cardiovascular Cardiovascular exam: Present normal rate and rhythm GI/Abdominal GI/Abdominal exam: Present normal bowel sounds Additional comments: [place] catheter in place Back Exam Back exam: Present normal inspection Neurological Exam Neurological exam: Present alert and oriented X3 Skin Skin exam: Present warm; Absent intact Additional comments: Multiple scratches on bilateral lower extremities. OBJ DATA Labs CBC & Chem 7: 11/02/21 05:34 11/02/21 05:34 Labs: Abnormal Lab Results 11/02/21 11/02/21 11/02/21 05:34 05:34 05:34 WBC RBC 2.55 L Hgb 7.6 L Hct 24.4 L RDW 16.8 H Plt Count MPV 10.7 H Immature Gran % (Auto) Neut % (Auto) Lymph % (Auto) Lymph # (Auto) Immature Gran # Absolute Neutrophils POC Sodium POC Potassium POC Chloride Carbon Dioxide POC Total CO2 POC BUN BUN 5 L Creatinine 0.4 L POC Glucose Calcium 7.6 L POC WB Ioniz Calcium Phosphorus 2.3 L Magnesium 1.5 L AST 83 H Total Creatine Kinase 1751 H Total Protein 4.4 L Albumin 2.3 L Globulin 2.1 L Procalcitonin Urine Appearance Urine Protein Urine Ketones Urine Occult Blood Urine Bilirubin Ur Leukocyte Esterase Urine RBC Urine WBC Hyaline Casts RBC Casts Urine Mucus Urine Yeast (Budding) 11/01/21 11/01/21 11/01/21 05:38 05:38 05:38 WBC 15.1 H RBC 3.04 L Hgb 9.1 L Hct 28.4 L RDW 16.5 H Plt Count MPV 10.6 H Immature Gran % (Auto) 0.7 H Neut % (Auto) 88.1 H Lymph % (Auto) 8.2 L Lymph # (Auto) 1.23 L Immature Gran # 0.10 H Absolute Neutrophils 13.41 H POC Sodium POC Potassium POC Chloride Carbon Dioxide 20 L POC Total CO2 POC BUN BUN 5 L Creatinine 0.5 L POC Glucose Calcium 7.9 L POC WB Ioniz Calcium Phosphorus Magnesium 1.4 L AST 102 H Total Creatine Kinase 6201 H Total Protein 4.9 L Albumin 2.8 L Globulin 2.1 L Procalcitonin Urine Appearance Urine Protein Urine Ketones Urine Occult Blood Urine Bilirubin Ur Leukocyte Esterase Urine RBC Urine WBC Hyaline Casts RBC Casts Urine Mucus Urine Yeast (Budding) 10/31/21 10/31/21 10/31/21 12:33 10:09 09:40 WBC RBC Hgb Hct RDW Plt Count MPV Immature Gran % (Auto) Neut % (Auto) Lymph % (Auto) Lymph # (Auto) Immature Gran # Absolute Neutrophils POC Sodium 132 L POC Potassium 3.1 L POC Chloride 95 L Carbon Dioxide POC Total CO2 20.0 L POC BUN 5 L BUN Creatinine POC Glucose 108 H Calcium POC WB Ioniz Calcium 1.01 L Phosphorus Magnesium AST Total Creatine Kinase Total Protein Albumin Globulin Procalcitonin 0.36 H Urine Appearance Turbid A Urine Protein 100 mg/dl A Urine Ketones 40 mg/dl A Urine Occult Blood Large A Urine Bilirubin Small A Ur Leukocyte Esterase Small A Urine RBC 82 H Urine WBC > 182 H Hyaline Casts 7 H RBC Casts 5 H Urine Mucus Few A Urine Yeast (Budding) Many A 10/31/21 10/31/21 10/31/21 09:40 09:40 09:40 WBC 18.4 H RBC Hgb Hct RDW 15.6 H Plt Count 558 H MPV 10.8 H Immature Gran % (Auto) 0.8 H Neut % (Auto) 85.4 H Lymph % (Auto) 9.3 L Lymph # (Auto) Immature Gran # 0.15 H Absolute Neutrophils 15.86 H POC Sodium POC Potassium POC Chloride Carbon Dioxide POC Total CO2 POC BUN BUN Creatinine POC Glucose Calcium POC WB Ioniz Calcium Phosphorus Magnesium AST 66 H Total Creatine Kinase 08763 H Total Protein Albumin Globulin Procalcitonin Urine Appearance Urine Protein Urine Ketones Urine Occult Blood Urine Bilirubin Ur Leukocyte Esterase Urine RBC Urine WBC Hyaline Casts RBC Casts Urine Mucus Urine Yeast (Budding) Meds: Medications Acetaminophen (Acetaminophen 325 Mg Tablet) 650 mg PO Q6HP PRN; Protocol PRN Reason: Per Pain Protocol/Fever > 101 Last Admin: 11/02/21 08:38 Dose: 650 mg Albuterol/Ipratropium (Ipratropium/Albuterol 3 Ml Ampul.Neb) 3 ml NEB Q4HRT PRN PRN Reason: Wheezing Ascorbic Acid (Ascorbic Acid 500 Mg Tablet) 500 mg PO BID [facility] Last Admin: 11/02/21 08:37 Dose: 500 mg Baclofen (Baclofen 10 Mg Tablet) 10 - 20 mg PO Q6HP PRN PRN Reason: Spasms Last Admin: 10/31/21 19:50 Dose: 10 mg Bupropion HCl (Bupropion 150 Mg Tab.Xl.24h) 450 mg PO DAILY [facility] Last Admin: 11/02/21 08:35 Dose: 450 mg Buspirone HCl (Buspirone 15 Mg Tablet) 15 mg PO TID [facility] Last Admin: 11/02/21 08:37 Dose: 15 mg Carbidopa/Levodopa (Carbidopa/Levodopa 25/100 Tablet) 2 tab PO QID [facility] Last Admin: 11/02/21 08:35 Dose: 2 tab Ceftriaxone Sodium (Ceftriaxone 1 Gm Vial) 1 gm IV Q24H [facility]; Protocol Last Admin: 11/02/21 08:38 Dose: 1 gm Dextrose (Dextrose 50% 50 Ml Vial) 0 ml IV UD PRN PRN Reason: Per Sliding Scale Diagnostic Test (Pha) (Accu-Chek 1 Each Strip) 1 each FS [facility] Last Admin: 11/02/21 07:47 Dose: 1 each Docusate Sodium (Docusate Sodium 100 Mg Capsule) 100 mg PO BID [facility] Last Admin: 11/02/21 08:37 Dose: 100 mg Enoxaparin Sodium (Enoxaparin 40 Mg/0.4 Ml Syringe) 40 mg SQ DAILY [facility] Last Admin: 11/02/21 08:37 Dose: 40 mg Estradiol (Estradiol 1 Mg Tablet) 2 mg PO DAILY [facility] Last Admin: 11/02/21 08:36 Dose: 2 mg Glucose (Dextrose 31 Gm Oral.Susp) 15 gm PO PRN PRN PRN Reason: Hypoglycemia Ibuprofen (Ibuprofen 600 Mg Tablet) 600 mg PO QIDP PRN; Protocol PRN Reason: Per Pain Protocol/Fever > 101 Last Admin: 10/31/21 20:31 Dose: 600 mg Insulin Human Lispro (Insulin Lispro 1 Unit/0.01 Ml Unit) 0 unit SQ [facility]; Protocol Last Admin: 11/02/21 07:58 Dose: Not Given Levothyroxine Sodium (Levothyroxine 50 Mcg Tablet) 50 mcg PO QDAY [facility] Last Admin: 11/02/21 08:36 Dose: 50 mcg Lorazepam (Lorazepam 1 Mg Tablet) 1 mg PO DAILYP PRN PRN Reason: ANXIETY/SEDATION Magnesium Oxide (Magnesium Oxide 400 Mg Tablet) 400 mg PO BID [facility] Last Admin: 11/02/21 08:37 Dose: 400 mg Ondansetron HCl (Ondansetron 4 Mg/2 Ml Vial) 4 mg IV Q6HP PRN PRN Reason: Nausea And Vomiting Last Admin: 11/02/21 10:44 Dose: 4 mg Ziprasidone Hcl 20 (Mg Capsule) 1 dose PO BID [facility] Last Admin: 11/02/21 08:41 Dose: Not Given Entacapone 200 Mg (Tablet) 1 dose PO QID [facility] Last Admin: 11/02/21 08:40 Dose: Not Given Phenazopyridine HCl (Phenazopyridine 200 Mg Tablet) 100 mg PO TIDP PRN PRN Reason: PAINFUL URINATION Potassium Chloride (Potassium Chloride 20 Meq Tablet) 20 meq PO BIDCC [facility] Last Admin: 11/02/21 08:37 Dose: 20 meq Pregabalin (Pregabalin 150 Mg Capsule) 300 mg PO BID [facility] Last Admin: 11/02/21 08:36 Dose: 300 mg Promethazine HCl (Promethazine 25 Mg/Ml Vial) 25 mg IV Q4-6HP PRN PRN Reason: Nausea And Vomiting Propranolol HCl (Propranolol 10 Mg Tablet) 10 mg PO TID [facility] Last Admin: 11/02/21 08:37 Dose: 10 mg Senna (Sennosides 1 Tablet) 2 tab PO HS [facility] Last Admin: 11/01/21 20:12 Dose: 2 tab Sodium Chloride (0.9 % Sodium Chloride 10 Ml Syringe) 10 ml IV Q8 [facility] Last Admin: 11/02/21 05:18 Dose: Not Given Tramadol HCl (Tramadol 50 Mg Tablet) 50 - 100 mg PO Q4-6HP PRN; Protocol PRN Reason: Pain Last Admin: 11/02/21 05:38 Dose: 100 mg Trazodone HCl (Trazodone Hcl 100 Mg Tablet) 100 mg PO HSP PRN PRN Reason: Sleep Last Admin: 10/31/21 20:31 Dose: 100 mg A/P Assessment and plan (1) Rhabdomyolysis: Status: Acute (2) Hypothyroidism: Status: Acute (3) T2DM (type 2 diabetes mellitus): Status: Acute (4) Parkinsonism: Status: Chronic (5) Anxiety with depression: Status: Acute (6) UTI (urinary tract infection): Status: Chronic (7) Hypokalemia: Status: Acute (8) Hyponatremia: Status: Acute Narrative A/P Narrative: Assessment and Plans: 1. Rhabdomyolysis: Inpatient med surg Serum CK level 1751 today. We will saline lock the patient and we will also stop checking serum CK level daily. 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 UTI with sepsis criteria: Serial lactic acid Procalcitonin Blood culture, no growth to date Urine culture , c albicans cbc w/ auto diff in the morning to trend WBC Saline lock d/c Rocephin, switch to Fluconazole 200mg PO daily X2 weeks starting today 11/02 3. Depression with Anxiety: Buspirone Bupropion Ziprasidone 3. Parkinsonism: Sinemet 4. Hypothyroidism: Continue oral thyroid replacement therapy 5. T2DM: HgA1c Hold any oral hypoglycemics SSI AC HS Accu Chek AC HS Hypoglycemia protocol Diabetic diet 6. Hypokalemia: RESOLVED Potassium oral replacement CMP in the morning to trend serum potassium level Also check serum Mg level and replace if needed 7. Questionable dysphagia: Speech therapy reevaluations for further diet recommendations 8. Anemia: DDx: hemodilution from IV fluid therapy d/c Lovenox cbc w/ auto diff in the morning to trend H/H Folate level Vitamin B12 level Iron panel GI ppx: not currently indicated DVT ppx: SCDs Code status: Full Prognosis: stable Disposition: inpatient med surg; PT OT Time Spent With Patient Time: Total time spent is greater than 50% in coordination of care (as documented) at patient's floor/unit and/or counseling patient: Total time spent with greater than 50% in coordination of care (as documented) at patient's floor/unit and/or counseling patient:: 35 - 50 minutes
[2021-11-02] MEDS: IBUPROFEN 600 MG TABLET PO PRN (20:03)
[2021-11-02] MEDS: BACLOFEN 10 MG TABLET PO PRN (20:05)
[2021-11-02] MEDS: SENNOSIDES 1 TABLET PO SCH (20:06)
[2021-11-03] MEDS: LORazepam 1 MG TABLET PO PRN ×2 (01:14→19:48)
[2021-11-03] MEDS: 0.9 % SODIUM CHLORIDE 10 ML SYRINGE IV SCH ×2 (05:47→15:23)
[2021-11-03 06:50] LABS: Basophils # (Auto) 0.01 K/mcL (0.00-0.30); Basophils % (Auto) 0.1 % (0.0-2.0); Eosinophils # (Auto) 0 K/mcL (0.00-0.70); Eosinophils % (Auto) 0 % (0.0-7.0); Hematocrit 29.2 % (34.1-44.9); Hemoglobin 8.8 g/dL (11.2-15.7); Lymphocytes # (Auto) 1.33 K/mcL (1.50-4.80); Lymphocytes % (Auto) 13.3 % (15.5-49.0); Mean Cell Volume 97.3 fL (80.0-100.0); Mean Corpuscular HGB Conc 30.1 g/dL (31.0-36.0); Mean Platelet Volume 10.3 fL (7.4-10.4); Monocytes # (Auto) 0.78 K/mcL (0.10-0.90); Monocytes % (Auto) 7.8 % (1.0-12.0); Neutrophils % (Auto) 77.7 % (38.0-78.0); Platelet Count 237 K/mcL (140-440); Red Cell Distribution Width 16.2 % (11.5-14.5)
[2021-11-03 07:16] LABS: ALT/SGPT 19 U/L (<40); AST/SGOT 146 U/L (<32); Albumin 2.7 gm/dL (3.2-5.2); Albumin/Globulin Ratio 1.1 (1.0-2.3); Alkaline Phosphatase 84 U/L (39-117); Bilirubin,Total 0.5 mg/dL (0.1-1.0); Blood Urea Nitrogen 6 mg/dL (6-20); Calcium 8.1 mg/dL (8.6-10.4); Carbon Dioxide 15 mmol/L (22-30); Chloride 99 mmol/L (96-108); Globulin 2.5 gm/dL (2.2-3.7); Glomerular Filtration Rate 105; Glucose 60 mg/dL (70-105); Phosphorous 3.2 mg/dL (2.5-4.5)
[2021-11-03 07:18] LABS: Iron 159 ug/dL (37-145)
[2021-11-03] MEDS: INSULIN LISPRO 1 UNIT/0.01 ML UNIT SQ SCH ×4 (07:58→19:59)
[2021-11-03] MEDS: POTASSIUM CHLORIDE 20 MEQ TABLET PO SCH (08:27)
[2021-11-03] MEDS ORDERED: FLUCONAZOLE 100 MG TABLET PO SCH (09:00)
[2021-11-03] MEDS: ACETAMINOPHEN 325 MG TABLET PO PRN (09:13)
[2021-11-03] MEDS: PREGABALIN 150 MG CAPSULE PO SCH (09:25)
[2021-11-03] MEDS: buPROPion 150 MG TAB.XL.24H PO SCH (09:26)
[2021-11-03] MEDS: LEVOTHYROXINE 50 MCG TABLET PO SCH (09:26)
[2021-11-03] MEDS: MAGNESIUM OXIDE 400 MG TABLET PO SCH (09:27)
[2021-11-03] MEDS: busPIRone 15 MG TABLET PO SCH ×2 (09:27→15:23)
[2021-11-03] MEDS: CARBIDOPA/LEVODOPA 25/100 TABLET PO SCH ×3 (09:27→17:05)
[2021-11-03] MEDS: PROPRANOLOL 10 MG TABLET PO SCH ×2 (09:27→15:23)
[2021-11-03] MEDS: ESTRADIOL 1 MG TABLET PO SCH (09:28)
[2021-11-03] MEDS: ASCORBIC ACID 500 MG TABLET PO SCH (09:28)
[2021-11-03] MEDS: DOCUSATE SODIUM 100 MG CAPSULE PO SCH (09:29)
[2021-11-03] MEDS: Entacapone 200 mg Tablet PO SCH ×4 (10:05→19:13)
--- NOTE | 2021-11-03 10:44 | Internal Med Progress Note ---
SUBJECTIVE Subjective Patient information: Note initiated : 11/03/21 at 10:38 am Service Date, if different from initiated Date: [] Patient: Reba Santiago 60 y/o F admitted on 10/31/21 for weakness. Chief Complaint: [] Interval history: Ms. Santiago is a 60 year old F history of parkinsonism, anxiety with depressions, type 2 diabetes mellitus, hypothyroidism, presenting with 1 day history of weakness with recent fall and unable to get up by herself. Patient has history of multiple falls. She lives by herself but she has a caregiver who lives with for half the day. Yesterday when she was ambulating using her walker, she fell due to weakness and she was unable to get up from the ground overnight. She denies any loss of consciousness. She has some lower extremity pains but denies any chest pain or shortness of breath or palpitations. She was being sent to our ER for further evaluations earlier this morning. Vital signs significant for tachycardia and tachypnea heart rate and rate of breathing in the 1 teens and mid 20s, respectively. Labs significant for leukocytosis with WBC 18.4. Serum sodium and potassium level 132 and 3.1, respectively. [place] [address]. UA suggestive of presence of UTI. Admission request called for rha bdomyolysis as well as UTI and also for adult protective service and physical therapy occupational patient therapy evaluations. 11/01: Patient has been afebrile overnight. 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 Blood and urine culture no growth to date. Serum CK level trended down from 19,000-6000 overnight. Patient is complaining of lower back pain. She currently denies any nausea or vomiting. Continue IV fluid for rhabdomyolysis. Continue Rocephin for UTI. Pending physical therapy and Occupational Therapy evaluations for placement pending. We will also order speech therapy swalloing evaluation. DC morphine to avoid oversedation. Also pending adult protective service investigations for home safety. 11/02: Serum CK continue to downtrend today 175. Patient's was being evaluated by speech therapist who put her on a level 4 dysphagia diet. Patient is coming of mild nausea but denies any vomiting or abdominal pain. She denies any lower extremity pains at the moment. We will saline lock patient's. We will stop checking serum CK level. We will have physical therapy to continue to evaluate patient's for placement pending. We will also have speech therapy to reevaluate patient's for further recommendations on diet advancement. Also pending adult protective service investigations for home safety. 11/03: H&H stable. Serum potassium level 5.5, magnesium level 2.1. We are no longer checking serum CK level. It was reported that patient's only took a few bites of her foot, and patient also stated that she is very picky about her food but she stated she has good appetite today. We will continue to encourage patients to take as much food as she could tolerate. Stop potassium oral replacement. Patient has been saline locked. Continue oral fluconazole for [place] UTI. Pending SNF placement. Constitutional Vitals: Vital Signs Temp Pulse Resp BP Pulse Ox O2 Del Method O2 Flow Rate 36.4 C 68 16 105/67 98 2 11/03/21 07:05 11/03/21 07:05 11/03/21 07:05 11/03/21 07:05 11/03/21 07:05 11/03/21 07:05 11/03/21 07:53 Period Temp Pulse Resp BP Sys/[place] Pulse Ox O2 Del Method O2 Flow Rate Last 24 Hr 35.8 C-36.6 C 68-82 16-24 104-115/66-78 92-98 Nasal Cannula- Room Air 2-2 Intake and Output 11/02/21 11/03/21 11/03/21 21:59 05:59 13:59 Intake Total 400 400 Output Total 500 250 Balance -100 150 Weight 50.258 kg Intake & Output: Intake & Output 11/02/21 11/03/21 11/03/21 21:59 05:59 13:59 Intake Total 400 400 Output Total 500 250 Balance -100 150 Weight 50.258 kg Intake: Oral 400 400 Output: Urine Catheter Amount 500 250 Other: Meal Dinner Percent of Meal Consumed 25% Urine Appearance Clear Clear Uretheral ([place]) Clear Urine Color Light Valarie Dark Valarie Uretheral ([place]) Light Valarie Urine Odor Normal Stool Size Large Stool Color Brown Stool Consistency Loose # Bowel Movements 1 General appearance: cooperative, no acute distress and thin Head Head exam: Present atraumatic and normal inspection Eye Eye exam: Present normal appearance ENT ENT exam: Present mucous membranes moist, normal exam and normal external ear exam Neck Neck exam: Present normal inspection Respiratory Respiratory exam: Present normal respiratory exam Cardiovascular Cardiovascular exam: Present normal rate and rhythm GI/Abdominal GI/Abdominal exam: Present normal bowel sounds Additional comments: [place] catheter in place Back Exam Back exam: Present normal inspection Neurological Exam Neurological exam: Present alert and oriented X3 Skin Skin exam: Present warm; Absent intact Additional comments: Multiple scratches on her bilateral lower extremities. OBJ DATA Labs CBC & Chem 7: 11/03/21 05:40 11/03/21 05:40 Labs: Abnormal Lab Results 11/03/21 11/03/21 11/03/21 05:40 05:40 05:40 WBC RBC 3.00 L Hgb 8.8 L Hct 29.2 L MCHC 30.1 L RDW 16.2 H Plt Count MPV Immature Gran % (Auto) 1.1 H Neut % (Auto) Lymph % (Auto) 13.3 L Lymph # (Auto) 1.33 L Immature Gran # 0.11 H Absolute Neutrophils Sodium 132 L Potassium 5.5 H Carbon Dioxide 15 L Anion Gap 18.0 H BUN Creatinine 0.5 L Glucose 60 L Calcium 8.1 L Phosphorus Magnesium Iron 159 H AST 146 H Total Creatine Kinase Total Protein 5.2 L Albumin 2.7 L Globulin Procalcitonin Urine Appearance Urine Protein Urine Ketones Urine Occult Blood Urine Bilirubin Ur Leukocyte Esterase Urine RBC Urine WBC Hyaline Casts RBC Casts Urine Mucus Urine Yeast (Budding) 11/02/21 11/02/21 11/02/21 05:34 05:34 05:34 WBC RBC 2.55 L Hgb 7.6 L Hct 24.4 L MCHC RDW 16.8 H Plt Count MPV 10.7 H Immature Gran % (Auto) Neut % (Auto) Lymph % (Auto) Lymph # (Auto) Immature Gran # Absolute Neutrophils Sodium Potassium Carbon Dioxide Anion Gap BUN 5 L Creatinine 0.4 L Glucose Calcium 7.6 L Phosphorus 2.3 L Magnesium 1.5 L Iron AST 83 H Total Creatine Kinase 1751 H Total Protein 4.4 L Albumin 2.3 L Globulin 2.1 L Procalcitonin Urine Appearance Urine Protein Urine Ketones Urine Occult Blood Urine Bilirubin Ur Leukocyte Esterase Urine RBC Urine WBC Hyaline Casts RBC Casts Urine Mucus Urine Yeast (Budding) 11/01/21 11/01/21 11/01/21 05:38 05:38 05:38 WBC 15.1 H RBC 3.04 L Hgb 9.1 L Hct 28.4 L MCHC RDW 16.5 H Plt Count MPV 10.6 H Immature Gran % (Auto) 0.7 H Neut % (Auto) 88.1 H Lymph % (Auto) 8.2 L Lymph # (Auto) 1.23 L Immature Gran # 0.10 H Absolute Neutrophils 13.41 H Sodium Potassium Carbon Dioxide 20 L Anion Gap BUN 5 L Creatinine 0.5 L Glucose Calcium 7.9 L Phosphorus Magnesium 1.4 L Iron AST 102 H Total Creatine Kinase 6201 H Total Protein 4.9 L Albumin 2.8 L Globulin 2.1 L Procalcitonin Urine Appearance Urine Protein Urine Ketones Urine Occult Blood Urine Bilirubin Ur Leukocyte Esterase Urine RBC Urine WBC Hyaline Casts RBC Casts Urine Mucus Urine Yeast (Budding) 10/31/21 10/31/21 10/31/21 12:33 09:40 09:40 WBC RBC Hgb Hct MCHC RDW Plt Count MPV Immature Gran % (Auto) Neut % (Auto) Lymph % (Auto) Lymph # (Auto) Immature Gran # Absolute Neutrophils Sodium Potassium Carbon Dioxide Anion Gap BUN Creatinine Glucose Calcium Phosphorus Magnesium Iron AST Total Creatine Kinase 10784 H Total Protein Albumin Globulin Procalcitonin 0.36 H Urine Appearance Turbid A Urine Protein 100 mg/dl A Urine Ketones 40 mg/dl A Urine Occult Blood Large A Urine Bilirubin Small A Ur Leukocyte Esterase Small A Urine RBC 82 H Urine WBC > 182 H Hyaline Casts 7 H RBC Casts 5 H Urine Mucus Few A Urine Yeast (Budding) Many A 10/31/21 10/31/21 09:40 09:40 WBC 18.4 H RBC Hgb Hct MCHC RDW 15.6 H Plt Count 558 H MPV 10.8 H Immature Gran % (Auto) 0.8 H Neut % (Auto) 85.4 H Lymph % (Auto) 9.3 L Lymph # (Auto) Immature Gran # 0.15 H Absolute Neutrophils 15.86 H Sodium Potassium Carbon Dioxide Anion Gap BUN Creatinine Glucose Calcium Phosphorus Magnesium Iron AST 66 H Total Creatine Kinase Total Protein Albumin Globulin Procalcitonin Urine Appearance Urine Protein Urine Ketones Urine Occult Blood Urine Bilirubin Ur Leukocyte Esterase Urine RBC Urine WBC Hyaline Casts RBC Casts Urine Mucus Urine Yeast (Budding) Meds: Medications Acetaminophen (Acetaminophen 325 Mg Tablet) 650 mg PO Q6HP PRN; Protocol PRN Reason: Per Pain Protocol/Fever > 101 Last Admin: 11/03/21 09:13 Dose: 650 mg Albuterol/Ipratropium (Ipratropium/Albuterol 3 Ml Ampul.Neb) 3 ml NEB Q4HRT PRN PRN Reason: Wheezing Ascorbic Acid (Ascorbic Acid 500 Mg Tablet) 500 mg PO BID [place] Last Admin: 11/03/21 09:28 Dose: 500 mg Baclofen (Baclofen 10 Mg Tablet) 10 - 20 mg PO Q6HP PRN PRN Reason: Spasms Last Admin: 11/02/21 20:05 Dose: 10 mg Bupropion HCl (Bupropion 150 Mg Tab.Xl.24h) 450 mg PO DAILY [facility] Last Admin: 11/03/21 09:26 Dose: 450 mg Buspirone HCl (Buspirone 15 Mg Tablet) 15 mg PO TID [facility] Last Admin: 11/03/21 09:27 Dose: 15 mg Carbidopa/Levodopa (Carbidopa/Levodopa 25/100 Tablet) 2 tab PO QID [facility] Last Admin: 11/03/21 09:27 Dose: 2 tab Dextrose (Dextrose 50% 50 Ml Vial) 0 ml IV UD PRN PRN Reason: Per Sliding Scale Diagnostic Test (Pha) (Accu-Chek 1 Each Strip) 1 each FS ACHS [facility] Last Admin: 11/03/21 09:11 Dose: 1 each Docusate Sodium (Docusate Sodium 100 Mg Capsule) 100 mg PO BID [facility] Last Admin: 11/03/21 09:29 Dose: Not Given Estradiol (Estradiol 1 Mg Tablet) 2 mg PO DAILY [facility] Last Admin: 11/03/21 09:28 Dose: 2 mg Fluconazole (Fluconazole 100 Mg Tablet) 200 mg PO DAILY [facility]; Protocol Stop: 11/17/21 08:59 Last Admin: 11/03/21 09:25 Dose: 200 mg Glucose (Dextrose 31 Gm Oral.Susp) 15 gm PO PRN PRN PRN Reason: Hypoglycemia Ibuprofen (Ibuprofen 600 Mg Tablet) 600 mg PO QIDP PRN; Protocol PRN Reason: Per Pain Protocol/Fever > 101 Last Admin: 11/02/21 20:03 Dose: 600 mg Insulin Human Lispro (Insulin Lispro 1 Unit/0.01 Ml Unit) 0 unit SQ ACHS [place]; Protocol Last Admin: 11/03/21 07:58 Dose: Not Given Levothyroxine Sodium (Levothyroxine 50 Mcg Tablet) 50 mcg PO QDAY [facility] Last Admin: 11/03/21 09:26 Dose: 50 mcg Lorazepam (Lorazepam 1 Mg Tablet) 1 mg PO DAILYP PRN PRN Reason: ANXIETY/SEDATION Last Admin: 11/03/21 01:14 Dose: 1 mg Magnesium Oxide (Magnesium Oxide 400 Mg Tablet) 400 mg PO BID [facility] Last Admin: 11/03/21 09:27 Dose: 400 mg Ondansetron HCl (Ondansetron 4 Mg/2 Ml Vial) 4 mg IV Q6HP PRN PRN Reason: Nausea And Vomiting Last Admin: 11/02/21 20:03 Dose: 4 mg Ziprasidone Hcl 20 (Mg Capsule) 1 dose PO BID [facility] Last Admin: 11/03/21 10:05 Dose: Not Given Entacapone 200 Mg (Tablet) 1 dose PO QID [facility] Last Admin: 11/03/21 10:05 Dose: Not Given Phenazopyridine HCl (Phenazopyridine 200 Mg Tablet) 100 mg PO TIDP PRN PRN Reason: PAINFUL URINATION Pregabalin (Pregabalin 150 Mg Capsule) 300 mg PO BID [facility] Last Admin: 11/03/21 09:25 Dose: 300 mg Promethazine HCl (Promethazine 25 Mg/Ml Vial) 25 mg IV Q4-6HP PRN PRN Reason: Nausea And Vomiting Propranolol HCl (Propranolol 10 Mg Tablet) 10 mg PO TID [facility] Last Admin: 11/03/21 09:27 Dose: 10 mg Senna (Sennosides 1 Tablet) 2 tab PO [facility] Last Admin: 11/02/21 20:06 Dose: Not Given Sodium Chloride (0.9 % Sodium Chloride 10 Ml Syringe) 10 ml IV Q8 [facility] Last Admin: 11/03/21 05:47 Dose: Not Given Tramadol HCl (Tramadol 50 Mg Tablet) 50 - 100 mg PO Q4-6HP PRN; Protocol PRN Reason: Pain Last Admin: 11/02/21 05:38 Dose: 100 mg Trazodone HCl (Trazodone Hcl 100 Mg Tablet) 100 mg PO HSP PRN PRN Reason: Sleep Last Admin: 10/31/21 20:31 Dose: 100 mg A/P Assessment and plan (1) Rhabdomyolysis: Status: Acute (2) Hypothyroidism: Status: Acute (3) T2DM (type 2 diabetes mellitus): Status: Acute (4) Parkinsonism: Status: Chronic (5) Anxiety with depression: Status: Acute (6) UTI (urinary tract infection): Status: Chronic (7) Hypokalemia: Status: Acute (8) Hyponatremia: Status: Acute Narrative A/P Narrative: Assessment and Plans: 1. Rhabdomyolysis: Inpatient med surg Saline lock the patient and we will also stop checking serum CK level daily. Adult protective service wholesale account managergeneral manager in training therapy--> recs. SNF placement Occupational therapy 2. UTI with sepsis criteria: Serial lactic acid Procalcitonin Blood culture, no growth to date Urine culture , c albicans cbc w/ auto diff in the morning to trend WBC Saline lock Continue Fluconazole 200mg PO daily X2 weeks starting 11/02 3. Depression with Anxiety: Buspirone Bupropion Ziprasidone 3. Parkinsonism: Sinemet 4. Hypothyroidism: Continue oral thyroid replacement therapy 5. T2DM: HgA1c Hold any oral hypoglycemics SSI AC HS Accu Chek AC HS Hypoglycemia protocol Diabetic diet 6. Hypokalemia: RESOLVED Potassium oral replacement CMP in the morning to trend serum potassium level Also check serum Mg level and replace if needed 7. Questionable dysphagia: Speech therapy--> clears the patient's for regular diet. Would encourage patient to eat as much as she could tolerate. 8. Anemia: DDx: hemodilution from IV fluid therapy d/c Lovenox cbc w/ auto diff in the morning to trend H/H Folate level Vitamin B12 level Iron panel GI ppx: not currently indicated DVT ppx: SCDs Code status: Full Prognosis: stable Disposition: inpatient med surg; PT OT Time Spent With Patient Time: Total time spent is greater than 50% in coordination of care (as documented) at patient's floor/unit and/or counseling patient: Total time spent with greater than 50% in coordination of care (as documented) at patient's floor/unit and/or counseling patient:: 35 - 50 minutes
[2021-11-03] MEDS ORDERED: ONDANSETRON 4 MG ODT TABLET SL PRN (12:20)
[2021-11-03] MEDS: traMADol 50 MG TABLET PO PRN (12:37)
--- NOTE | 2021-11-03 22:03 | Death Note ---
Discharge Sum: Prov Provider Patient information: Note initiated : 11/03/21 at 9:59 pm Service Date, if different from initiated Date: [] Patient: Reba Santiago 60 y/o F admitted on 10/31/21 for weakness. Chief Complaint: [] Primary care physician: Jamie Dinh DO Attending physician on admission: Dilan Jin Consults: 10/31/21 Consult to Physician [CONS] Stat Comment: Consulting Provider: Dilan Jin Reason For Exam: Physician to Consult 11/03/21 08:00 Consult to Physician [CONS] Routine Comment: snf referral Consulting Provider: [facility] Reason For Exam: Physician to Consult Discharge Sum: Diag PCOD Cause of : Cardiac arrest Contributing Factors (1) Rhabdomyolysis: (2) Hypothyroidism: (3) T2DM (type 2 diabetes mellitus): (4) Parkinsonism: (5) Anxiety with depression: (6) UTI (urinary tract infection): (7) Hypokalemia: (8) Hyponatremia: Discharge Sum: Summary Date and Time Date of admission: 10/31/21 14:58 Date of : 11/03/21 Time of : 21:50 Summary Details: Patient was found to be unresponsive by nurse at 2130, CODE BLUE was called. Patient's was found to be asystole from threat monitoring analyst. ER physicians directed the code the lasted 20 minutes for was pronounced. Additional Data Confirmation of as documented by pronouncing clinician: no pulse, no respirations, no heart sounds and pupils fixed and dilated Attending/PCP notified?: Yes Attending physician: Dilan Jin MD Was code activated?: Yes Autopsy requested?: No warehouse examiner notified?: No Organ bank notified?: No Advance directives?: No Hospice patient?: No
[2021-11-04] MEDS ORDERED: ATROPINE SULFATE 1 MG/10 ML SYRINGE IV ONE (00:04)
[2021-11-04] MEDS ORDERED: EPINEPHrine 1 MG/10 ML (1:10,000) SYRINGE IV ONE (00:04)
[2021-11-04] MEDS ORDERED: FLUMAZENIL 0.1 MG/ML ML IV ONE (00:04)
[2021-11-04] MEDS ORDERED: CALCIUM CHLORIDE 1,000 MG/10 ML SYRINGE IV ONE (00:04)
--- NOTE | 2021-11-04 09:48 | Emergency Department Note ---
ED Note Addendum Note Addendum: This is a Emergency Department consult and acute care and procedure note. I was called to the patient's bedside via overhead CODE BLUE announcement. On arrival I found the patient to be receiving cardiac compressions and asystole on the monitor. Patient was apparently recovering from rhabdo and to be discharged in the morning. Patient had appeared fine on prior nurse rounds. On this evaluation nurse found the patient to be in cardiopulmonary arrest and called a CODE BLUE. Patient was receiving bag valve mask ventilation. I attempted intubation using a video laryngoscope with a 7 mm endotracheal tube without a stylette. I was easily able to see the cords but unable to advance the tube. I withdrew the tube and patient received [id number] ventilation while I inserted a stylette. I then reattempted them and easily visualize the cords and then inserted the 7 mm endotracheal tube through the cords. Breath sounds were heard bilaterally and capnometer indicated change in color. Respiratory therapy to go over ventilation and secure the airway. No medications were required for intub ation. The code was then run. There was no initial venous access so intraosseous line was placed. Patient was given 1 mg of epinephrine IV followed by 1 mg of atropine IV. Patient remained in asystole. Patient received chest compressions via mechanical chest compression equipment. Patient was given 1 amp of calcium chloride because of the potential elevated potassium level in this patient. There was no change in the rhythm. I was advised that the patient received benzodiazepine orally at the time of her last nurse evaluation so the patient was given flumazenil 1 amp IV. There was no change in her rhythm. Patient was given a second milligram of Ativan IV. 10-second pause revealed no pulses palpable and asystole on the monitor. Patient was given 1 additional round of epinephrine followed by circulation for 2 minutes and then reassessment. Again there was no palpable pulses and asystole on the monitor. I pronounced the patient at 2150. The hospitalist Dr[address] Jin was advised and came to the bedside. Dr. Jin took responsibility for notifying the family.
== END 2021-11-04 00:05 | disposition expired | DRG 558 ==
LOC: ED 08:41 → MEDSUR 14:58
PROVIDERS: ADMIT Internal Medicine; ATTEND Internal Medicine